=== PATIENT | female | born 1985 | race Caucasian/White ===

== ENCOUNTER 2024-01-24 18:51 | Emergency (ER) | payer MEDICAID, SELFPAY ==
[2024-01-24 18:51] VITALS: BP 150/106; PULSE 90; RESP 18; TEMP 36.7; O2SAT 96; BMI 36.0
[2024-01-24 18:54] VITALS: BP 130/76; PULSE 72; RESP 18; TEMP 36.6; O2SAT 97
--- NOTE | 2024-01-24 18:55 | PC.NURSE ---
Pt provided with TV remote
--- NOTE | 2024-01-24 19:17 | HMH.EDGENADL ---
Discharge Plan Disposition Patient Disposition: Home, Self-Care Condition: Good Referrals Follow up/Referrals: Lonnie Calzada APRN [Primary Care Provider] - See instructions Activity Restrictions/Add. Instructions Additional Instructions/Restrictions: Please follow-up with your primary care doctor. Please return with any new or worsening symptoms. Clinical Impressions Clinical Impression: Encounter for medical assessment Discharge ED Provider: Rúal Mccracken Adult HPI General Chief complaint: Recheck/Abnormal Lab/Rx Stated complaint: possible , leg pain Time Seen by Provider: 01/24/24 19:17 Mode of Arrival: EMS Source of Information: Patient Limitations: No Limitations Description of Symptoms (Recalled from ER Triage Doc. by RN): Patient reports that she thinks that she may be . States her last period was a couple of days ago. Reports that she is schizoprenic and needs her medication and something for the pain in her legs. Also complains of cough. Patient requesting medication refills, test, rehab and something for pain. History of Present Illness HPI narrative: Patient presents with concerns for . Her last menstrual period was 2 days ago however she reports she has had vaginal bleeding in the past in the setting of . She reports leg pain after remote injury and is requesting a Toradol shot. She does report a history of schizophrenia however denies any homicidal or suicidal ideations at this time. She denies any auditory or visual hallucinations at this time. She is requesting a medication refill of an unknown antipsychotic but upon further questioning states she has the capability to rapidly follow-up with primary care provider regarding this refill. Denies fevers or chills or vaginal bleeding or dysuria or frequency or recreational drug use. Denies any other medical conditions. Please note that above description of symptoms, in this electronic medical record under categorization of recalled from ER triage doctor by RN are reflective of an initial nursing assessment, however, is not reflective of my full history and physical exam that was personally taken and clarified. Consequentially, this preceding description of symptoms, which may include the patient's categorized chief complaint in the EMR, do not reflect my personal clinical impression, and the ultimate description of history of present illness and patient stated complaints should be deferred to this section of the note. Unless stated otherwise or congruent with this section of the note, additional signs, symptoms, or incongruence should be interpreted as inaccurate with my clinical impression. Related Data Allergies Allergy/AdvReac Type Severity Reaction Status Date / Time No Known Allergies Allergy Verified 01/24/24 18:55 [facility] Disclaimer: The information contained in this section may have been updated after the patient was seen, as this information can be updated by other users. Social History Smoking Status: Current every day smoker alcohol intake: never current occupational status: other Travel in the last 8 weeks: None ROS Obtained: Yes Systems reviewed as appropriate & no additional complaints except as documented As per HPI Physical Exam General General appearance: alert and in no apparent distress Head Head exam: atraumatic and normocephalic Eye Eye exam: Present normal appearance Neck Neck exam: Present normal inspection Chest Chest inspection: Present normal inspection and symmetric chest wall rise Respiratory Respiratory exam: Present normal lung sounds bilaterally; Absent respiratory distress Cardiovascular Cardiovascular exam: Present regular rate and normal rhythm Abdominal Exam Abdominal exam: Present soft Neurological Exam Neurological exam: Present alert and oriented X3 Psychiatric Psychiatric exam: Present normal affect and normal mood Skin Skin exam: Present warm and dry Medical Decision Making Medical Records Medical records reviewed: Yes I reviewed the patient's medical records. Karel Inquiry Pt receiving controlled substance: No Vital Signs: 01/24/24 18:51 01/24/24 18:54 01/24/24 21:58 Temperature 98.0 F 97.8 F 97.9 F Temperature Source Oral Oral Oral Pulse Rate 72 Pulse Rate [Radial] 90 70 Respiratory Rate 18 18 18 Blood Pressure 130/76 Blood Pressure [Right Arm] 150/106 H 126/70 Blood Pressure Mean [Right Arm] 120 88 Blood Pressure Source [Right Arm] Automatic Cuff Blood Pressure Position [Right Arm] Sitting 02 Sat by Pulse Oximetry 96 97 97 Oxygen Delivery Method Room Air Room Air Room Air 01/24/24 21:58 01/24/24 22:18 Temperature 97.9 F 97.9 F Temperature Source Oral Pulse Rate 70 64 Pulse Rate [Radial] Respiratory Rate 18 18 Blood Pressure 126/70 118/70 Blood Pressure [Right Arm] Blood Pressure Mean [Right Arm] Blood Pressure Source [Right Arm] Blood Pressure Position [Right Arm] 02 Sat by Pulse Oximetry 97 Oxygen Delivery Method Room Air Room Air Lab Data Lab Results 01/24/24 21:08: Urine HCG, Qual Negative Orders (Tests/Meds): ED MEDICATIONS Discontinued Medications Generic Name Dose Route Start Last Admin Trade Name Freq PRN Reason Stop Dose Admin Ketorolac Tromethamine 15 mg 01/24/24 21:35 01/24/24 22:05 Ketorolac 30mg/Ml Vial IM 01/24/24 21:36 15 mg ONCE ONE Administration ORDERS Category Date Time Status Urine , HCG Qual. Stat Lab 01/24/24 21:08 Completed Medical Decision Narrative: Patient with history and exam per above presenting for evaluation of concerns for Diagnoses considered include , no clinical evidence of psychosis tram or other acute psychogenic pathology that would warrant psychiatric hold or inpatient hospitalization. Unfortunately, upon reviewing patient's chart I have no access to any medical records, including no records of any prescription history. Patient does not have any access to these medications either and thus I am hesitant to place a refill for any prescription. Furthermore she is able to rapidly follow-up with psychiatry and/or primary care provider and is amenable to this plan ED workup and treatment included: Urine hCG Labs were independently interpreted by me, significant for negative My clinical impression at this time is most consistent with negative examination I discussed my clinical impression with patient and answered all questions. At this time, the evidence for any other entities in the differential is insufficient to warrant any further testing or ED observation. This was explained to the patient. The patient was advised that persistent or worsening symptoms require further evaluation. I confirmed the patient's understanding of this discussion. Critical Care Critical Care Time Critical Care Time: No
[2024-01-24 21:23] LABS: Urine Pregnancy, HCG Qual. Negative (Negative)
--- NOTE | 2024-01-24 21:56 | PC.NURSE ---
Called [facility] to let them know the pt is ready for discharge.
[2024-01-24 21:58] VITALS: BP 126/70; PULSE 70; RESP 18; TEMP 36.6; O2SAT 97
[2024-01-24] MEDS: KETOROLAC 30MG/ML VIAL 15 MG IM (22:05)
[2024-01-24 22:18] VITALS: BP 118/70; PULSE 64; RESP 18; TEMP 36.6; O2SAT 97
== END 2024-01-24 22:18 | disposition home or self-care (01) ==
PROVIDERS: Emergency Provider Emergency Medicine; PCP Nurse Practitioner Acute Care
DX: M79.606 Pain in leg, unspecified; F20.9 Schizophrenia, unspecified; Z32.02 Encounter for pregnancy test, result negative; F17.210 Nicotine dependence, cigarettes, uncomplicated
CPT/HCPCS: 81025; 96372; 99283

== ENCOUNTER 2024-02-11 18:44 | Emergency (ER) | payer MEDICAID, SELFPAY ==
[2024-02-11 18:42] VITALS: BP 141/93; PULSE 91; RESP 20; TEMP 36.6; O2SAT 95; BMI 34.9
--- NOTE | 2024-02-11 19:12 | ECG_ITS ---
APPROVED REPORT Exam: Resting ECG HR:82 bpm ECG Measurements Heart Rate 82 AXES MI 134 P 12 QRSd 84 QRS 85 QT 353 T 33 QTc 391 Conclusion SINUS RHYTHM NONSPECIFIC T-WAVE ABNORMALITY BORDERLINE ECG Electronically signed by : LA DOE, 02/12/2024 07:21:31
[2024-02-11 19:33] LABS: Microscopic, Urine URINE MICROSCOPIC (MICROSCOPIC)
[2024-02-11 19:36] LABS: Appearance,Urine CLEAR (Clear); Bilirubin,Urine Negative (Negative); Blood, Urine Negative (Negative); Color,Urine YELLOW (Yellow); Glucose,Urine (UA) Negative (Negative); Ketones,Urine Negative (Negative); Leukocyte Esterase,Urine TRACE (Negative); Nitrate,Urine Negative (Negative); Protein,Urine Negative (Negative); Specific Gravity, Urine >= 1.030 (1.005-1.030); Urine Pregnancy, HCG Qual. Negative (Negative); Urobilinogen,Urine 0.2 EU/dl (0.2)
[2024-02-11] MEDS: KETOROLAC 30MG/ML VIAL 15 MG IV (19:42)
--- NOTE | 2024-02-11 19:45 | ED_ITS ---
Discharge Plan Disposition Patient Disposition: Home, Self-Care Chief Complaint: Anxiety Referrals Follow up/Referrals: Provider,Referral, [Primary Care Provider] - See instructions Clinical Impressions Clinical Impression: Acute anxiety Discharge ED Provider: Frank Valentin General Adult HPI General Chief complaint: Anxiety Stated complaint: anxiety Time Seen by Provider: 02/11/24 18:56 Mode of Arrival: EMS Source of Information: Patient and EMS Limitations: No Limitations Description of Symptoms (Recalled from ER Triage Doc. by RN): pt is here today for anxiety attack and states she wants to be admitted for a mental health evaluation to have her schizophrenia meds regualted as she has been without them for 2 months. pt denies homicide and suicide thoughts upon triage History of Present Illness HPI narrative: Please note that above description of symptoms, in this electronic medical record under categorization of recalled from ER triage doctor by RN are reflective of an initial nursing assessment, however, is not reflective of my full history and physical exam that was personally taken and clarified. Consequentially, this preceding description of symptoms, which may include the patient's categorized chief complaint in the EMR, do not reflect my personal clinical impression, and the ultimate description of history of present illness and patient stated complaints should be deferred to this section of the note. Unless stated otherwise or congruent with this section of the note, additional signs, symptoms, or incongruence should be interpreted as inaccurate with my clinical impression. Related Data Allergies Allergy/AdvReac Type Severity Reaction Status Date / Time No Known Allergies Allergy Verified 01/24/24 18:55 [facility] Disclaimer: The information contained in this section may have been updated after the patient was seen, as this information can be updated by other users. Social History (Updated 01/25/24 @ 17:57 by Raúl Mccracken MD) Smoking Status: Current every day smoker alcohol intake: never current occupational status: other Travel in the last 8 weeks: None ROS Obtained: Yes All systems reviewed & no additional complaints except as documented Physical Exam General General appearance: alert and in no apparent distress Head Head exam: atraumatic and normocephalic Eye Eye exam: Present normal appearance, PERRL and EOMI ENT ENT exam: Present mucous membranes moist Neck Neck exam: Present normal inspection, full ROM and trachea midline Respiratory Respiratory exam: Absent respiratory distress, wheezes, stridor, accessory muscle use or prolonged expiratory phase Cardiovascular Cardiovascular exam: Present normal rhythm Abdominal Exam Abdominal exam: Present soft; Absent distention, tenderness, guarding, rebound or rigidity Extremities Exam Extremities exam: Absent edema Neurological Exam Neurological exam: Present alert, oriented X3, CN II-XII intact and normal gait; Absent motor sensory deficit Skin Skin exam: Present warm and dry; Absent diaphoresis or erythema Medical Decision Making Medical Records Medical records reviewed: Yes I reviewed the patient's medical records. Karel Inquiry Pt receiving controlled substance: No Karel was queried for this patient: No Vital Signs: 02/11/24 18:42 Temperature 97.8 F Temperature Source Oral Pulse Rate [Right Radial] 91 H Respiratory Rate 20 Blood Pressure [Right Arm] 141/93 H Blood Pressure Mean [Right Arm] 109 02 Sat by Pulse Oximetry 95 Oxygen Delivery Method Room Air Lab Data Lab Results 02/11/24 19:30: Urine Color Yellow, Urine Appearance Clear, Urine pH 6.0, Ur Specific [place] >= 1.030, Urine Protein Negative, Urine Glucose (UA) Negative, Urine Ketones Negative, Urine Blood Negative, Urine Nitrate Negative, Urine Bilirubin Negative, Urine Urobilinogen 0.2, Ur Leukocyte Esterase Trace, Urine RBC None, Urine WBC Occasional, Ur Squamous Epith Cells 3-5, Calcium Oxalate Crystal 2+, Urine Bacteria Trace, Urine HCG, Qual Negative, Urine Opiates Screen Negative, Urine Methadone Screen Negative, Ur Barbituates Screen Negative, Ur Phencyclidine Scrn Negative, Ur Amphetamines Screen Negative, U Benzodiazepines Scrn Negative, Urine Cocaine Screen Negative, U Marijuana (THC) Screen Positive H 02/11/24 19:35: WBC 9.5, RBC 5.12, Hgb 15.0, Hct 46.2, MCV 90.3, MCH 29.3, MCHC 32.4, RDW 13.8, Plt Count 293, MPV 7.4, Neut % (Auto) 59.6, Lymph % (Auto) 23.8, [place] % (Auto) 5.6, Eos % (Auto) 9.8, Baso % (Auto) 1.1, Neut # (Auto) 5.7, Lymph # (Auto) 2.3, [place] # (Auto) 0.5, Eos # (Auto) 0.9 H, Baso # (Auto) 0.1, Sodium 139, Potassium 3.8, Chloride 110 H, Carbon Dioxide 17 L, Anion Gap 15.8 H, BUN 15, Creatinine 0.80, Estimated Creat Clear 142, Estimated GFR 80, Est GFR ( Amer) 97, Glucose 107 H, Calcium 9.4, Total Bilirubin 0.4, AST 28, ALT 24, Alkaline Phosphatase 91, Total Protein 7.0, Albumin 4.1, Globulin 2.9, Albumin/Globulin Ratio 1.4, Salicylates < 1.0 L, Acetaminophen < 10 L, Plasma/Serum Alcohol < 10 02/11/24 19:35 02/11/24 19:35 Orders (Tests/Meds): ED MEDICATIONS Discontinued Medications Generic Name Dose Route Start Last Admin Trade Name Freq PRN Reason Stop Dose Admin Ketorolac Tromethamine 15 mg 02/11/24 19:10 02/11/24 19:42 Ketorolac 30mg/Ml Vial IV 02/11/24 19:11 15 mg ONCE ONE Administration ORDERS Category Date Time Status Acetaminophen Stat Lab 02/11/24 19:35 Completed CBC w/Auto Diff [Complete Blood Count Auto Diff] Stat Lab 02/11/24 19:35 Completed CMP [Comprehensive Metabolic Panel] Stat Lab 02/11/24 19:35 Completed Ethanol [Ethyl Alcohol] Stat Lab 02/11/24 19:35 Completed Salicylate Stat Lab 02/11/24 19:35 Completed UA [Urinalysis and Microscopic] Stat Lab 02/11/24 19:30 Completed UDS [Drug Screen,Urine] Stat Lab 02/11/24 19:30 Completed Urine , HCG Qual. Stat Lab 02/11/24 19:30 Completed Medical Decision Narrative: [id number] female history of paranoid schizophrenia presenting with multiple complaints. Patient states that she wants to be admitted. She has not taken her psychiatric medications in about 2 months and is hearing voices. Telling her to hurt anyone or hurt herself, but she is having panic attacks and feeling suicidal because of it. Does not have a plan. No active hallucinations. No homicidal ideation. History was obtained via conversation with patient. On arrival, patient hemodynamically stable, alert, oriented x4, appropriate, GCS 15, moving all extremities spontaneously, pupils equal and reactive to light. Full physical exam performed and significant for chronically ill-appearing woman in no acute distress. She is unkempt. Answering questions appropriately and interactive. Patient was given Toradol IM for symptomatic management and correction of underlying abnormalities. Workup independently interpreted and significant for nonactionable hematologic workup. Negative . THC positive urine. Urinalysis negative. Prior to evaluation by Nash Jolley, patient requesting to leave. States that she no longer feels suicidal and just wants to go home. I feel this is appropriate given patient has no plan, support system, and follow- up to help with medications. Because patient at baseline without signs or symptoms of clinical decompensation, deemed appropriate for discharge. Results were relayed to patient who voiced understanding and were agreeable to outpatient management and follow up. I discussed my clinical impression with patient and answered all questions. At this time, the evidence for any other entities in the differential is insufficient to warrant any further testing or ED observation. This was explained as well. Advisory was given that persistent or worsening symptoms require further evaluation. I confirmed the understanding of this discussion. Critical Care Critical Care Time Critical Care Time: No
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
[2024-02-11 19:48] LABS: Benzodiazepines Screen,Urine Negative ng/ml (<200)
[2024-02-11 19:49] LABS: Amphetamine/Metha Screen,Urine Negative ng/ml (<1000); Barbiturates Screen,Urine Negative ng/ml (<200)
[2024-02-11 19:50] LABS: Cannabinoid Screen,Urine Positive ng/ml (<50)
[2024-02-11 19:51] LABS: Bacteria,Urine Trace /lpf; Methadone Screen,Urine Negative ng/ml (<300); WBC,Urine Occasional #/hpf (0-3)
[2024-02-11 19:51] LABS: Basophils # 0.1 K/mm3 (0-0.2); Basophils % 1.1 % (0.1-2.0); Eosinophils # 0.9 K/mm3 (0.0-0.4); Eosinophils % 9.8 % (0.1-12.0); Hematocrit 46.2 % (37.0-47.0); Lymphocytes # 2.3 K/mm3 (0.7-4.5); Lymphocytes % 23.8 % (10-50); Mean Corpuscular HGB Conc 32.4 g/dL (31.8-35.4); Mean Corpuscular Hemoglobin 29.3 pg (27.0-31.2); Mean Corpuscular Volume 90.3 fl (81-99); Mean Platelet Volume 7.4 fl (7.4-10.4); Monocytes # 0.5 K/mm3 (0.1-1.0); Monocytes % 5.6 % (1.7-9.3); Neutrophils # 5.7 K/mm3 (1.8-7.8); Neutrophils % 59.6 % (37.0-80.0); Platelet Count 293 K/mm3 (142-424); Red Blood Count 5.12 M/mm3 (4.20-5.40); Red Cell Distribution Width 13.8 % (11.5-17.5); White Blood Count 9.5 K/mm3 (4.8-10.8)
[2024-02-11 19:52] LABS: Calcium Oxalate Crystals,Urine 2+ /lpf; Phencyclidine Screen,Urine Negative ng/ml (<25)
[2024-02-11 19:53] LABS: Opiate Screen,Urine Negative ng/ml (<300)
[2024-02-11 19:58] LABS: Cocaine Screen,Urine Negative ng/ml (<300)
[2024-02-11 20:02] LABS: Alanine Aminotransferase 24 U/L (12-78); Albumin Level 4.1 g/dl (3.5-5.0); Albumin/Globulin Ratio 1.4 (1.1-1.8); Alkaline Phosphatase 91 U/L (38-126); Anion Gap 15.8 mEq/L (5-15); Aspartate Amino Transferase 28 U/L (14-36); Bilirubin,Total 0.4 mg/dl (0.2-1.3); Blood Urea Nitrogen 15 mg/dl (7-17); Calcium 9.4 mg/dl (8.4-10.2); Carbon Dioxide 17 mmol/L (22.0-30.0); Chloride 110 mmol/L (98-107); Creatinine Clearance Estimated 142 mL/min (50-200); Estimated Glomerular Filt Rate 80 ml/min (>60); Ethyl Alcohol < 10 mg/dl (0-10); GFR (African American) 97 ML/MIN (>60); Globulin 2.9 g/dL (1.3-3.2); Glucose 107 mg/dl (74-100); Potassium 3.8 mmoL/L (3.5-5.1); Sodium 139 mmol/L (136-145)
--- NOTE | 2024-02-11 20:02 | PC.NURSE ---
Spoke with Sravani at [facility], will fax pt information to her for assessment at [phone]
[2024-02-11 20:05] LABS: Acetaminophen < 10 ug/ml (10-30); Salicylate < 1.0 mg/dL (2.0-20.0)
--- NOTE | 2024-02-11 21:44 | PC.NURSE ---
notified of patient request to go back 'home'. contacted [facility]cie without an answer, contacted nadia at [facility] who stated she could come and get here and would be up here in a minute
[2024-02-11 21:48] VITALS: BP 138/82; PULSE 89; RESP 18; TEMP 36.6; O2SAT 96
--- NOTE | 2024-02-11 21:55 | PC.NURSE ---
silvestre contacted at [facility] to discontinue assessment
--- NOTE | 2024-02-11 21:55 | PC.NURSE ---
Pt leaving with [facility] staff Shy Bella
== END 2024-02-11 21:53 | disposition home or self-care (01) ==
PROVIDERS: Emergency Provider Emergency Medicine
DX: F41.9 Anxiety disorder, unspecified (principal); F20.9 Schizophrenia, unspecified
CPT/HCPCS: 80053; 80307; 80329; 81001; 81025; 85025; 93005; 96374; 99284

== ENCOUNTER 2024-02-18 11:41 | Emergency (ER) | payer MEDICAID, SELFPAY ==
--- NOTE | 2024-02-18 11:40 | PC.NURSE ---
attempted to call [facility] العلي to gain better information about pt, no answer.
[2024-02-18 11:41] VITALS: BP 153/97; PULSE 87; RESP 18; TEMP 36.7; O2SAT 97; BMI 34.9
--- NOTE | 2024-02-18 11:46 | PC.NURSE ---
attempted to call [facility] العلي to gain better information about pt, no answer.
[2024-02-18] MEDS: NAPROXEN 500MG TABLET 500 MG PO (11:57)
[2024-02-18] MEDS: FLUCONAZOLE 100MG TABLET 200 MG PO (11:59)
--- NOTE | 2024-02-18 11:59 | PC.NURSE ---
pt reports having a history of schizophrenia. reports hallucinations but denies any si,hi.
--- NOTE | 2024-02-18 12:00 | PC.NURSE ---
Lunch tray obtained for pt.
--- NOTE | 2024-02-18 12:01 | HMH.EDGENADL ---
Discharge Plan Disposition Patient Disposition: Home, Self-Care Prescriptions Prescriptions: New Alevazol 1 % ointment 1 applic topical BID 28 Days Qty: 56.7 0RF Activity Restrictions/Add. Instructions Additional Instructions/Restrictions: There is a small area of excoriated skin on the right and left groin with superimposed candidal infection consistent with intertrigo. It is very important that you keep these areas clean and dry away from moisture. A barrier cream such as Desitin or A&E ointment would be helpful. Additionally I will give you topical antifungal treatment that will help as well. You were given a dose of fluconazole in the emergency department should help with the superimposed yeast infection. Regarding your schizophrenia with auditory hallucinations this appears to be a chronic condition and there is no immediate harm to yourself or others at the moment please continue to follow-up with your primary care doctor and psychiatrist as previously instructed. Clinical Impressions Clinical Impression: Candidal intertrigo, Schizophrenia, Auditory hallucination Instructions Patient Instructions: DI for Skin Abscess Discharge ED Provider: Radha Noyola General Adult HPI General Chief complaint: Skin/Abscess/Foreign Body Stated complaint: spot on leg Time Seen by Provider: 02/18/24 11:51 Mode of Arrival: EMS Source of Information: Patient and EMS Limitations: No Limitations Description of Symptoms (Recalled from ER Triage Doc. by RN): redness and moisture to ttaum area History of Present Illness HPI narrative: Patient is a 38-year-old female presents to the emergency room with multiple complaints by EMS. First she states she is having an area of bleeding and soreness in her bilateral groins. She was recently in the emergency department just a few days ago with a negative test. She was recently on her period as well. She also states that she has a history of schizophrenia she has auditory hallucinations which is chronic this is at its baseline. However she claims that she has not been able to take any of her psychiatric medications at [facility]. Efforts to call [facility] discussed this but been unsuccessful. Patient also claims she has chronic bilateral lower extremity pain and asked for pain medicine regarding this. Related Data Previous Rx's Medication Instructions Recorded clotrimazole 1 % topical ointment 1 applic topical BID 4 weeks #56.7 02/18/24 (Alevazol) grams Allergies Allergy/AdvReac Type Severity Reaction Status Date / Time No Known Allergies Allergy Verified 01/24/24 18:55 [facility] Disclaimer: The information contained in this section may have been updated after the patient was seen, as this information can be updated by other users. Social History (Updated 01/25/24 @ 17:57 by Raúl Mccracken MD) Smoking Status: Current every day smoker alcohol intake: never current occupational status: other Travel in the last 8 weeks: None ROS Obtained: Yes All systems reviewed & no additional complaints except as documented Physical Exam General General appearance: alert Respiratory Respiratory exam: Present normal lung sounds bilaterally Cardiovascular Cardiovascular exam: Present regular rate and normal rhythm Neurological Exam Neurological exam: Present alert and oriented X3 Skin Skin exam: Present other (Excoriated skin bilateral groins worse on the right with superimposed candidal erythema) Medical Decision Making Karel Inquiry Pt receiving controlled substance: No Vital Signs: 02/18/24 11:41 Temperature 98.1 F Temperature Source Oral Pulse Rate [Right] 87 Respiratory Rate 18 Blood Pressure [Right Arm] 153/97 H Blood Pressure Mean [Right Arm] 115 02 Sat by Pulse Oximetry 97 Oxygen Delivery Method Room Air Orders (Tests/Meds): ED MEDICATIONS Generic Name Dose Route Start Last Admin Trade Name Freq PRN Reason Stop Dose Admin Fluconazole 200 mg 02/18/24 11:58 02/18/24 11:59 Fluconazole 100mg Tablet PO 02/18/24 11:59 200 mg ONCE ONE Administration Naproxen 500 mg 02/18/24 11:53 02/18/24 11:57 Naproxen 500mg Tablet PO 02/18/24 11:54 500 mg ONCE ONE Administration Discontinued Medications Generic Name Dose Route Start Last Admin Trade Name Freq PRN Reason Stop Dose Admin Fluconazole 200 mg 02/18/24 11:51 02/18/24 11:59 Fluconazole 200mg Tablet PO 02/18/24 11:52 Not Given ONCE ONE Medical Decision Narrative: Patient is a chronically ill schizophrenic who has auditory hallucinations and is at her baseline she does not appear to be in acute harm to herself or others right now. No emergent aspect of this is ongoing. We were unable to confirm whether or not she is or is not getting her medications at [facility]. She is very stable in appearance. She was given a dose of oral fluconazole as well as a prescription of topical clotrimazole. She is also been advised to keep the area clean and dry with a barrier cream as well. She also requested a flu vaccine but we were unable to administer this in the emergency department as we do not have access to this. Regarding her chronic lower extremity pain she got very upset with me requesting gabapentin and tramadol I told her that I would give her Tylenol she told me that she would rebeca me. She was happy with the dose of naproxen however. Patient was discharged in stable condition Critical Care Critical Care Time Critical Care Time: No
[2024-02-18 12:03] VITALS: BP 136/94; PULSE 80; RESP 17; TEMP 36.7; O2SAT 98
--- NOTE | 2024-02-18 12:21 | PC.NURSE ---
Have attempted to reach [facility] several times however they will not answer the phone and unable to leave a voicemail. I attempted to call [facility] as they share a vehicle, no answer as well but I was able to leave a voicemail.
--- NOTE | 2024-02-18 12:50 | PC.NURSE ---
Pt asking for another snack ; gave pt a sandwich, pop-tarts, chips, and more drink.
--- NOTE | 2024-02-18 13:10 | PC.NURSE ---
Called dispatch as [facility] is still not answering their phones. Dispatch states we have the same number as everyone else . Dispatch attempted to call EMS for pt transport. I notified EMS they were not needed at this time.
--- NOTE | 2024-02-18 13:16 | PC.NURSE ---
I called [facility] again, Sapna did answer the phone, and we let her know that pt is ready for d/c. I let her know pt will have 1 medicine that was sent to their phone as requested.
--- NOTE | 2024-02-18 13:29 | PC.NURSE ---
[facility] that [facility] staff will be picking pt up shortly.
== END 2024-02-18 14:05 | disposition home or self-care (01) ==
PROVIDERS: Emergency Provider Student in an Organized Health Care Education/Training Program
DX: B37.2 Candidiasis of skin and nail (principal); F20.9 Schizophrenia, unspecified; F17.210 Nicotine dependence, cigarettes, uncomplicated
CPT/HCPCS: 99283

== ENCOUNTER 2024-02-25 16:51 | Observation (INO) | payer MEDICAID, SELFPAY ==
[2024-02-25] VITALS (7 sets, daily range): BP systolic 94–127; BP diastolic 62–87; PULSE 80–98; RESP 16; TEMP 36.7; O2SAT 91–96; BMI 33.3
--- NOTE | 2024-02-25 17:00 | XR_ITS ---
PROCEDURE INFORMATION: Exam: XR Chest Exam date and time: 02/25/2024 6:06 PM Age: 38 years old Clinical indication: Other: Syncope TECHNIQUE: Imaging protocol: Radiologic exam of the chest. Views: 1 view. Total images: 1 COMPARISON: No relevant prior studies available. FINDINGS: Tubes, catheters and devices: Extrinsic artifact referral to clothing or jewelry. Lungs: Mild bibasilar atelectasis. No concerning infiltrate, airspace consolidation or vascular congestion. No pulmonary edema. Pleural spaces: Unremarkable. No pleural effusion. No pneumothorax. Heart/Mediastinum: Unremarkable. No cardiomegaly. No mediastinal widening or hilar enlargement. Bones/joints: Unremarkable. Soft tissues: Breast attenuation artifact. IMPRESSION: 1. No radiographically acute cardiopulmonary process. 2. Mild bibasilar atelectasis.
--- NOTE | 2024-02-25 17:00 | CT_ITS ---
PROCEDURE INFORMATION: Exam: CT Head Without Contrast Exam date and time: 02/25/2024 6:09 PM Age: 38 years old Clinical indication: Syncope and collapse; Additional info: Recurrent syncope TECHNIQUE: Imaging protocol: Computed tomography of the head without contrast. Total images: 281 Radiation optimization: All CT scans at this facility use at least one of these dose optimization techniques: automated exposure control; mA and/or kV adjustment per patient size (includes targeted exams where dose is matched to clinical indication); or iterative reconstruction. COMPARISON: No relevant prior studies available. FINDINGS: Brain: Normal. No hemorrhage. Unremarkable white matter. No mass effect. The gabriel-white interface is maintained. Cerebral ventricles: No ventriculomegaly. Paranasal sinuses: Mild mucosal thickening base of the left maxillary sinus. Minimal mucosal thickening left sphenoid sinus. Mastoid air cells: Visualized mastoid air cells are well aerated. Bones: Unremarkable. No acute fracture. Soft tissues: Unremarkable. IMPRESSION: No acute intracranial process.
--- NOTE | 2024-02-25 17:06 | ED_ITS ---
Discharge Plan Disposition Patient Disposition: Home, Self-Care Chief Complaint: Syncope Prescriptions Prescriptions: No Action Alevazol 1 % ointment 1 applic topical BID 28 Days Qty: 56.7 0RF Referrals Follow up/Referrals: Provider,Referral, MD [Primary Care Provider] - See instructions Clinical Impressions Clinical Impression: Syncope Instructions Patient Instructions: DI for Syncope in Adults (Fainting), DI for Syncope in Children (Fainting) Discharge ED Provider: Elmo Lauren General Adult HPI General Chief complaint: Syncope Stated complaint: Passed Out Time Seen by Provider: 02/25/24 16:55 Mode of Arrival: EMS Source of Information: Patient Limitations: No Limitations Description of Symptoms (Recalled from ER Triage Doc. by RN): Patient stating that she has a condition that causes her to pass out and she has passed out 3 times today. Denies any pain or discomfort at this time. History of Present Illness HPI narrative: Patient is a 38-year-old female with past medical history of schizophrenia, reported multiple episodes of syncope in the last 6 months who presents emergency department for evaluation of passing out. Patient states she was sitting on a bench prior to dinner when she had a episode of passing out, she does not remember and woke up on the ground. She states that she has had some episodes of passing out while walking, some while sitting over the last 6 months. She had 3 episodes today all while sitting. Due to persistent symptoms she presents here for continued evaluation. Related Data Previous Rx's Medication Instructions Recorded clotrimazole 1 % topical ointment 1 applic topical BID 4 weeks #56.7 02/18/24 (Alevazol) grams Allergies Allergy/AdvReac Type Severity Reaction Status Date / Time No Known Allergies Allergy Verified 01/24/24 18:55 [facility] Disclaimer: The information contained in this section may have been updated after the patient was seen, as this information can be updated by other users. Social History (Updated 01/25/24 @ 17:57 by Raúl Mccracken MD) Smoking Status: Current every day smoker alcohol intake: never current occupational status: other Travel in the last 8 weeks: None ROS Obtained: Yes Systems reviewed as appropriate & no additional complaints except as documented Physical Exam General General appearance: alert and in no apparent distress Head Head exam: atraumatic and normocephalic Eye Eye exam: Present PERRL and EOMI ENT ENT exam: Present mucous membranes moist Neck Neck exam: Present normal inspection Chest Chest inspection: Present normal inspection and symmetric chest wall rise Respiratory Respiratory exam: Present normal lung sounds bilaterally; Absent respiratory distress Cardiovascular Cardiovascular exam: Present regular rate and normal rhythm Abdominal Exam Abdominal exam: Present soft; Absent tenderness Extremities Exam Extremities exam: Present normal inspection Neurological Exam Neurological exam: Present alert; Absent motor sensory deficit Psychiatric Psychiatric exam: Present normal affect Skin Skin exam: Present warm and dry Medical Decision Making Karel Inquiry Pt receiving controlled substance: No Vital Signs: 02/25/24 16:51 02/25/24 17:00 02/25/24 17:30 Temperature 98.0 F Temperature Source Oral Pulse Rate Pulse Rate [Radial] 80 Respiratory Rate 16 Blood Pressure 119/87 94/62 L Blood Pressure [Right Arm] 110/78 Blood Pressure Mean 94 73 Blood Pressure Mean [Right Arm] 88 Blood Pressure Source [Right Arm] Automatic Cuff Blood Pressure Position [Right Arm] Sitting 02 Sat by Pulse Oximetry 91 L Oxygen Delivery Method Room Air 02/25/24 18:00 02/25/24 18:30 Temperature Temperature Source Pulse Rate 95 H 98 H Pulse Rate [Radial] Respiratory Rate Blood Pressure 105/66 L 116/69 Blood Pressure [Right Arm] Blood Pressure Mean Blood Pressure Mean [Right Arm] Blood Pressure Source [Right Arm] Blood Pressure Position [Right Arm] 02 Sat by Pulse Oximetry 94 L 96 Oxygen Delivery Method Room Air Room Air Lab Data Lab Results 02/25/24 17:10: WBC 10.0, RBC 5.12, Hgb 15.0, Hct 44.9, MCV 87.6, MCH 29.2, MCHC 33.3, RDW 13.9, Plt Count 245, MPV 8.1, Neut % (Auto) 69.0, Lymph % (Auto) 20.0, [place] % (Auto) 4.6, Eos % (Auto) 5.7, Baso % (Auto) 0.8, Neut # (Auto) 6.9, Lymph # (Auto) 2.0, [place] # (Auto) 0.5, Eos # (Auto) 0.6 H, Baso # (Auto) 0.1, Sodium 136, Potassium 5.6 H, Chloride 112 H, Carbon Dioxide 20 L, Anion Gap 9.6, BUN 9, Creatinine 0.80, Estimated Creat Clear 135, Estimated GFR 80, Est GFR ( Amer) 97, Glucose 98, Calcium 9.1, Magnesium 1.8, Total Bilirubin 1.0, AST 59 H, ALT 29, Alkaline Phosphatase 99, Total Protein 7.2, Albumin 4.0, Globulin 3.2, Albumin/Globulin Ratio 1.3, Serum HCG, Qual Negative 02/25/24 17:10 02/25/24 17:10 Orders (Tests/Meds): ED MEDICATIONS Discontinued Medications Generic Name Dose Route Start Last Admin Trade Name Freq PRN Reason Stop Dose Admin Lactated Ringer's 1,000 mls @ 999 mls/hr 02/25/24 17:00 02/25/24 17:12 Lactated Ringer's 1000 Ml Bag IV 02/25/24 18:00 999 mls/hr .Q1H1M ONE Administration ORDERS Category Date Time Status CT head/brain wo con Stat Cat Scan 02/25/24 17:00 Completed XR chest portable Stat Exams 02/25/24 17:00 Completed CBC w/Auto Diff [Complete Blood Count Auto Diff] Stat Lab 02/25/24 17:10 Completed CMP [Comprehensive Metabolic Panel] Stat Lab 02/25/24 17:10 Completed HCG Qualitative, Serum Stat Lab 02/25/24 17:10 Completed MG [Magnesium] Stat Lab 02/25/24 17:10 Completed Medical Decision Narrative: In summary patient is a 38-year-old female past medical history described above who presents emergency department for evaluation of syncope. Patient is hemodynamically stable nontoxic-appearing upon arrival, afebrile. Differential diagnosis includes cardiac arrhythmia, electrolyte abnormality, vasovagal episode, among others. Workup was conducted with hematologic labs, chest x-ray, EKG, hCG. Initial inventions include crystalloid bolus. Initial workup reviewed by me, hematologic labs are nonactionable, mild hyperkalemia which does not require any intervention at this time, no LEONARDA, hCG negative. CT imaging shows no acute process. Given no explanation for syncope that occurred at rest patient will benefit from cardiac monitoring over the next 24 hours therefore the case was discussed with hospital medicine who will admit the patient their service for continued evaluation at this time. Critical Care Critical Care Time Critical Care Time: No
[2024-02-25] MEDS: LACTATED RINGERS 1000ML 1,000 ML 999 ML IV (17:12)
--- NOTE | 2024-02-25 17:21 | PC.NURSE ---
SUPPER TRAY ORDERED
[2024-02-25 17:23] LABS: Basophils # 0.1 K/mm3 (0-0.2); Basophils % 0.8 % (0.1-2.0); Eosinophils # 0.6 K/mm3 (0.0-0.4); Eosinophils % 5.7 % (0.1-12.0); Hematocrit 44.9 % (37.0-47.0); Mean Corpuscular HGB Conc 33.3 g/dL (31.8-35.4); Mean Corpuscular Hemoglobin 29.2 pg (27.0-31.2); Mean Corpuscular Volume 87.6 fl (81-99); Mean Platelet Volume 8.1 fl (7.4-10.4); Monocytes # 0.5 K/mm3 (0.1-1.0); Monocytes % 4.6 % (1.7-9.3); Neutrophils # 6.9 K/mm3 (1.8-7.8); Platelet Count 245 K/mm3 (142-424); Red Blood Count 5.12 M/mm3 (4.20-5.40); Red Cell Distribution Width 13.9 % (11.5-17.5)
[2024-02-25 17:29] LABS: Chloride 112 mmol/L (98-107); Potassium 5.6 mmoL/L (3.5-5.1); Sodium 136 mmol/L (136-145)
[2024-02-25 17:31] LABS: Alanine Aminotransferase 29 U/L (12-78); Aspartate Amino Transferase 59 U/L (14-36); Blood Urea Nitrogen 9 mg/dl (7-17); Creatinine Clearance Estimated 135 mL/min (50-200); Estimated Glomerular Filt Rate 80 ml/min (>60); GFR (African American) 97 ML/MIN (>60)
[2024-02-25 17:32] LABS: Albumin/Globulin Ratio 1.3 (1.1-1.8); Alkaline Phosphatase 99 U/L (38-126); Anion Gap 9.6 mEq/L (5-15); Calcium 9.1 mg/dl (8.4-10.2); Carbon Dioxide 20 mmol/L (22.0-30.0); Globulin 3.2 g/dL (1.3-3.2); Glucose 98 mg/dl (74-100); Total Protein,Serum 7.2 g/dl (6.3-8.2)
[2024-02-25 17:33] LABS: Magnesium 1.8 mg/dl (1.6-2.3)
[2024-02-25 17:35] LABS: HCG Qualitative, Serum Negative (Negative)
--- NOTE | 2024-02-25 19:44 | PC.NURSE ---
call placed for bed assignment. dx: syncope, hospitalist admit.
--- NOTE | 2024-02-25 20:01 | PC.NURSE ---
Nurse to nurse report given to Freya CHOPRA
--- NOTE | 2024-02-25 20:03 | P.HP_ITS ---
History of Present Illness *Admission Date: 02/25/24 *Reason for visit:: syncope *History of present illness: This is a 38-year-old obese female, resident of [facility] with PMHxof schizophrenia, polysubstance abuse, reported multiple episodes of syncope in the last 6 months who presents emergency department for evaluation. Patient stated she was sitting on a bench prior to dinner when she had a episode of passing out, she does not remember and woke up on the ground. She states that she has had some episodes of passing out while walking, some while sitting over the last 6 months. She had 3 episodes today all while sitting. family had no visualized any of this episode, however today patient has been found in the ground unresponsive. Due to persistent symptoms she presents here for continued evaluation. Admitted for further monitoring [facility] Disclaimer: The information contained in this section may have been updated after the patient was seen, as this information can be updated by other users. Medical History (Updated 02/26/24 @ 06:32 by Satish De Jesus APRN) Hx of drug overdose Anxiety Hypertension Surgical History (Updated 02/25/24 @ 20:30 by Freya Aldrich RN) H/O LEEP Social History (Updated 02/25/24 @ 20:28 by Freya Aldrich RN) Smoking Status: Current every day smoker alcohol intake: never current occupational status: other Travel in the last 8 weeks: None Review of Systems Review of Systems Review of systems:: pertinent systems reviewed and negative unless documented below Meds Home Medications and Allergies Home Medications Medication Instructions Recorded Confirmed Type clotrimazole 1 % topical ointment 1 applic topical BID 4 weeks #56.7 02/18/24 02/25/24 Rx (Alevazol) grams aripiprazole 10 mg tablet (Abilify) 10 mg PO DAILY 02/25/24 02/25/24 History lisinopril 10 mg tablet 10 mg PO DAILY 02/25/24 02/25/24 History melatonin 10 mg tablet 10 mg PO DAILY 02/25/24 02/25/24 History New Prescriptions to Start Prescriptions: Allergies Allergy/AdvReac Type Severity Reaction Status Date / Time No Known Allergies Allergy Verified 01/24/24 18:55 Exam Data for Last 24 hours Vital signs and Labs for Last 24 Hours: Temp Pulse Resp BP Pulse Ox O2 Del Method 98.0 F 98 H 16 116/69 96 Room Air 02/25/24 16:51 02/25/24 18:30 02/25/24 16:51 02/25/24 18:30 02/25/24 18:30 02/25/24 18:30 Laboratory Results - last 24 hr 02/25/24 17:10: WBC 10.0, RBC 5.12, Hgb 15.0, Hct 44.9, MCV 87.6, MCH 29.2, MCHC 33.3, RDW 13.9, Plt Count 245, MPV 8.1, Neut % (Auto) 69.0, Lymph % (Auto) 20.0, [place] % (Auto) 4.6, Eos % (Auto) 5.7, Baso % (Auto) 0.8, Neut # (Auto) 6.9, Lymph # (Auto) 2.0, [place] # (Auto) 0.5, Eos # (Auto) 0.6 H, Baso # (Auto) 0.1, Sodium 136, Potassium 5.6 H, Chloride 112 H, Carbon Dioxide 20 L, Anion Gap 9.6, BUN 9, Creatinine 0.80, Estimated Creat Clear 135, Estimated GFR 80, Est GFR ( Amer) 97, Glucose 98, Calcium 9.1, Magnesium 1.8, Total Bilirubin 1.0, AST 59 H, ALT 29, Alkaline Phosphatase 99, Total Protein 7.2, Albumin 4.0, Globulin 3.2, Albumin/Globulin Ratio 1.3, Serum HCG, Qual Negative I & O for Last 24 hours: Intake & Output 02/22/24 02/23/24 02/24/24 02/25/24 23:59 23:59 23:59 23:59 Weight 90.718 kg Constitutional Constitutional: no acute distress, obese and cooperative *Routine HEENT Exam Head: Present normocephalic Eye: Present EOMI and PERRL ENT: Present mucous membranes moist *Routine Neck Exam Neck: Present supple; Absent lymphadenopathy *Routine Respiratory Exam Respiratory: Present CTA bilaterally *Routine Cardiovascular Exam Cardiovascular: Present RRR *Routine Abdominal Exam Abdominal: Present soft and normoactive bowel sounds; Absent tenderness *Routine Rectal Exam Rectal:: deferred *Routine Genitalia Exam Genitalia:: deferred *Routine Extremities Exam Extremities: Absent cyanosis, clubbing or edema *Routine Skin Exam Skin: Present warm; Absent rash *Routine Neurological Exam Neurological: Present alert, oriented X3, normal reflexes and moving all extremities Routine Psychiatric Exam Psychiatric: Present cooperative and anxious H&P: Result Imaging and Cardiology EKG: Status: image reviewed by me, Preliminary report and final report CT scan - head: Status: image reviewed by me, Preliminary report and final report Assessment and Plan *Assessment and plan (1) Syncope: Status: Acute Qualifiers: Syncope type: unspecified Qualified Code(s): R55 - Syncope and collapse Category: Medical Code(s): R55 - Syncope and collapse (2) Schizophrenia: Status: Acute Qualifiers: Schizophrenia type: unspecified Qualified Code(s): F20.9 - Schizophrenia, unspecified Category: Medical Code(s): F20.9 - Schizophrenia, unspecified (3) Hx of drug overdose: Status: Acute Category: Medical Code(s): Z91.89 - Other specified personal risk factors, not elsewhere classified (4) Hypertension: Status: Acute Qualifiers: Hypertension type: unspecified Qualified Code(s): I10 - Essential (primary) hypertension Category: Medical Code(s): I10 - Essential (primary) hypertension (5) Anxiety: Status: Acute Category: Medical Code(s): F41.9 - Anxiety disorder, unspecified Plan 38-year-old obese female, resident of [facility] with PMHxof schizophrenia, polysubstance abuse, reported multiple episodes of syncope in the last 6 months who presents emergency department for evaluation. initial work up hematologic labs are nonactionable, mild hyperkalemia which does not require any intervention at this time, no LEONARDA, hCG negative. CT imaging shows no acute process. ED requested admission. discussion made about medical history and risk factors. Agreed for admission. Plan as follow: -Syncope: patient was found down unresponsive by family. To rule out syncope, drug overdose, hypoglycemia; History of schizophrenia and drug abuse: Admit patient for continuous cardiac monitoring. Vital signs per unit protocol Obtain UA and drug screen. Positive for marijuana Ordered CBC CMP lipid panel, thyroid function and A1c Patient has not been taking her medications recently. Unclear why Resume aripiprazole 10 mg Monitor for withdrawal symptoms -Hypertension: On lisinopril. Resumed Lovenox for DVT prophylaxis. On Protonix Regular diet Full code
[2024-02-25] MEDS: PANTOPRAZOLE 40MG TABLET 40 MG PO (21:23)
[2024-02-25] MEDS: 0.9 % SODIUM CHLORIDE 1000ML 1,000 ML 75 ML IV (21:23)
[2024-02-25] MEDS: HEPARIN SODIUM 5,000 UNIT/ML VIAL 5000 UNIT SQ (21:23)
[2024-02-25 22:10] LABS: Microscopic, Urine URINE MICROSCOPIC (MICROSCOPIC)
[2024-02-25 22:13] LABS: Appearance,Urine CLEAR (Clear); Bilirubin,Urine Negative (Negative); Blood, Urine Negative (Negative); Color,Urine YELLOW (Yellow); Glucose,Urine (UA) Negative (Negative); Ketones,Urine Negative (Negative); Leukocyte Esterase,Urine 1+ (Negative); Nitrate,Urine POSITIVE (Negative); PH,Urine 6.5 (5.0-8.5); Protein,Urine Negative (Negative); Urobilinogen,Urine 0.2 EU/dl (0.2)
[2024-02-25 22:24] LABS: Benzodiazepines Screen,Urine Negative ng/ml (<200)
[2024-02-25 22:25] LABS: Amphetamine/Metha Screen,Urine Negative ng/ml (<1000); Barbiturates Screen,Urine Negative ng/ml (<200)
[2024-02-25 22:26] LABS: Cannabinoid Screen,Urine Positive ng/ml (<50); Cocaine Screen,Urine Negative ng/ml (<300)
[2024-02-25 22:27] LABS: Methadone Screen,Urine Negative ng/ml (<300)
[2024-02-25 22:28] LABS: Opiate Screen,Urine Negative ng/ml (<300); Phencyclidine Screen,Urine Negative ng/ml (<25)
[2024-02-25 22:34] LABS: Squamous Epithelial Cell,Urine 20-50 #/hpf (0-5); WBC,Urine 20-50 #/hpf (0-3)
[2024-02-25 22:35] LABS: Bacteria,Urine 2+ /lpf
[2024-02-26] VITALS (9 sets, daily range): BP systolic 130–160; BP diastolic 70–97; PULSE 78–120; RESP 16–20; TEMP 36.1–36.7; O2SAT 95–99; BMI 36.9
[2024-02-26] MEDS: HEPARIN SODIUM 5,000 UNIT/ML VIAL 5000 UNIT SQ ×2 (04:29→21:08)
--- NOTE | 2024-02-26 04:54 | PC.NURSE ---
Since arriving to the floor the patient has been able to rest. Patient has eaten well and tolerated that food well. Has not had any complaints. Has been up to the bathroom to void and done well. Has not had any syncopal episode. Tele has remained Normal sinus through the night.
[2024-02-26 08:12] LABS: Basophils # 0.1 K/mm3 (0-0.2); Basophils % 0.6 % (0.1-2.0); Eosinophils # 0.6 K/mm3 (0.0-0.4); Eosinophils % 6.2 % (0.1-12.0); Hemoglobin 14.2 g/dL (12.2-16.2); Lymphocytes # 1.6 K/mm3 (0.7-4.5); Mean Corpuscular HGB Conc 32.2 g/dL (31.8-35.4); Mean Corpuscular Hemoglobin 28.7 pg (27.0-31.2); Mean Platelet Volume 7.7 fl (7.4-10.4); Monocytes # 0.4 K/mm3 (0.1-1.0); Monocytes % 4.8 % (1.7-9.3); Neutrophils # 6.6 K/mm3 (1.8-7.8); Neutrophils % 71.4 % (37.0-80.0); Platelet Count 258 K/mm3 (142-424); Red Blood Count 4.94 M/mm3 (4.20-5.40); White Blood Count 9.3 K/mm3 (4.8-10.8)
[2024-02-26 08:17] LABS: Chloride 112 mmol/L (98-107); Sodium 139 mmol/L (136-145)
[2024-02-26 08:20] LABS: Alanine Aminotransferase 34 U/L (12-78); Albumin Level 3.5 g/dl (3.5-5.0); Albumin/Globulin Ratio 1.3 (1.1-1.8); Alkaline Phosphatase 86 U/L (38-126); Aspartate Amino Transferase 28 U/L (14-36); Bilirubin,Total 0.4 mg/dl (0.2-1.3); Blood Urea Nitrogen 11 mg/dl (7-17); Carbon Dioxide 18 mmol/L (22.0-30.0); Cholesterol 169 mg/dl (140-200); Creatinine Clearance Estimated 120 mL/min (50-200); Estimated Glomerular Filt Rate 62 ml/min (>60); GFR (African American) 75 ML/MIN (>60); Globulin 2.8 g/dL (1.3-3.2); Phosphorous 3.1 mg/dl (2.5-4.5); Total Protein,Serum 6.3 g/dl (6.3-8.2); Triglycerides 186 mg/dl (30-150); VLDL Cholesterol 37 mg/dL (0-40)
[2024-02-26 08:21] LABS: Chol/HDL Ratio 3.6 (1-3.5); Glucose 126 mg/dl (74-100); HDL Cholesterol 47 mg/dl (40-60); Magnesium 1.8 mg/dl (1.6-2.3)
[2024-02-26 08:32] LABS: Direct LDL Cholesterol 89.85 mg/dL (100-129)
[2024-02-26] MEDS: ARIPiprazole 10MG TABLET 10 MG PO (08:42)
[2024-02-26] MEDS: PANTOPRAZOLE 40MG TABLET 40 MG PO (08:42)
[2024-02-26] MEDS: LISINOPRIL 10MG TABLET 10 MG PO (08:42)
[2024-02-26 08:51] LABS: Thyroid Stimulating Hormone 0.47 uIU/mL (0.465-4.68)
[2024-02-26 09:42] LABS: 25-OH Vitamin D, Total 37.1 ng/mL (30-100); Free T4 (Free Thyroxine) 0.79 ng/dl (0.78-2.19)
[2024-02-26] MEDS: KETOROLAC 30MG/ML VIAL 15 MG IV (10:06)
[2024-02-26] MEDS: CLOTRIMAZOLE 1% TP ×2 (10:06→21:08)
[2024-02-26] MEDS: NICOTINE 21MG/24HR PATCH 21 MG TD (12:38)
--- NOTE | 2024-02-26 16:03 | PC.NURSE ---
Patient tried to leave floor and RN explained to patient she could not leave the floor and that this is a non-smoking facility. Patient currently laying in bed resting. State guardianship office called for clarification that patient can leave AMA if she so decides. Deborah Carbone was the aeronautical engineer state guardian RN spoke to and Deborah Carbone also spoke with Manny Cervantes RN and stated that the patient can sign herself out AMA should she decide.
--- NOTE | 2024-02-26 16:19 | EXP.PN ---
Subjective *Date: 02/26/24 *Time: 16:19 Interval history: seen at bedside, mentions she feels heavinvess in her breathing, otherwise denied N/V, Chest pain Exam Data for Last 24 hours Vital signs and Labs for Last 24 Hours: Temp Pulse Resp BP Pulse Ox O2 Del Method 98 F 89 17 138/70 96 Room Air 02/26/24 16:00 02/26/24 16:00 02/26/24 16:00 02/26/24 16:00 02/26/24 16:00 02/26/24 11:53 Laboratory Results - last 24 hr 02/25/24 17:10: WBC 10.0, RBC 5.12, Hgb 15.0, Hct 44.9, MCV 87.6, MCH 29.2, MCHC 33.3, RDW 13.9, Plt Count 245, MPV 8.1, Neut % (Auto) 69.0, Lymph % (Auto) 20.0, [place] % (Auto) 4.6, Eos % (Auto) 5.7, Baso % (Auto) 0.8, Neut # (Auto) 6.9, Lymph # (Auto) 2.0, [place] # (Auto) 0.5, Eos # (Auto) 0.6 H, Baso # (Auto) 0.1, Sodium 136, Potassium 5.6 H, Chloride 112 H, Carbon Dioxide 20 L, Anion Gap 9.6, BUN 9, Creatinine 0.80, Estimated Creat Clear 135, Estimated GFR 80, Est GFR ( Amer) 97, Glucose 98, Calcium 9.1, Magnesium 1.8, Total Bilirubin 1.0, AST 59 H, ALT 29, Alkaline Phosphatase 99, Total Protein 7.2, Albumin 4.0, Globulin 3.2, Albumin/Globulin Ratio 1.3, Serum HCG, Qual Negative 02/25/24 22:05: Urine Color Yellow, Urine Appearance Clear, Urine pH 6.5, Ur Specific [place] 1.010, Urine Protein Negative, Urine Glucose (UA) Negative, Urine Ketones Negative, Urine Blood Negative, Urine Nitrate Positive, Urine Bilirubin Negative, Urine Urobilinogen 0.2, Ur Leukocyte Esterase 1+ A, Urine RBC 3-5, Urine WBC 20-50, Ur Squamous Epith Cells 20-50, Urine Bacteria 2+, Urine Opiates Screen Negative, Urine Methadone Screen Negative, Ur Barbituates Screen Negative, Ur Phencyclidine Scrn Negative, Ur Amphetamines Screen Negative, U Benzodiazepines Scrn Negative, Urine Cocaine Screen Negative, U Marijuana (THC) Screen Positive H 02/26/24 08:00: WBC 9.3, RBC 4.94, Hgb 14.2, Hct 44.0, MCV 89.0, MCH 28.7, MCHC 32.2, RDW 14.0, Plt Count 258, MPV 7.7, Neut % (Auto) 71.4, Lymph % (Auto) 17.0, [place] % (Auto) 4.8, Eos % (Auto) 6.2, Baso % (Auto) 0.6, Neut # (Auto) 6.6, Lymph # (Auto) 1.6, [place] # (Auto) 0.4, Eos # (Auto) 0.6 H, Baso # (Auto) 0.1, Sodium 139, Potassium 4.0 D, Chloride 112 H, Carbon Dioxide 18 L, Anion Gap 13.0, BUN 11, Creatinine 1.00 D, Estimated Creat Clear 120, Estimated GFR 62, Est GFR ( Amer) 75 D, Glucose 126 H D, Hemoglobin A1c 5.0, Calcium 9.0, Phosphorus 3.1, Magnesium 1.8, Total Bilirubin 0.4, AST 28 D, ALT 34, Alkaline Phosphatase 86, Total Protein 6.3, Albumin 3.5 D, Globulin 2.8, Albumin/Globulin Ratio 1.3, Triglycerides 186 H, Cholesterol 169, LDL Cholesterol Direct 89.85 L, VLDL Cholesterol 37, HDL Cholesterol 47, Cholesterol/HDL Ratio 3.6 H, 25-OH Vitamin D Total 37.1, TSH 0.47, Free T4 0.79 I & O for Last 24 hours: Intake & Output 02/23/24 02/24/24 02/25/24 02/26/24 23:59 23:59 23:59 23:59 Intake Total 300 / 300 720 / 720 Output Total 300 / 700 400 / 400 Balance 0 / -400 320 / 320 Weight 90.718 kg 100.652 kg Constitutional Constitutional: no acute distress *Routine HEENT Exam Head: Present normocephalic Eye: Present EOMI and PERRL ENT: Present mucous membranes moist *Routine Neck Exam Neck: Present supple; Absent lymphadenopathy *Routine Respiratory Exam Respiratory: Present CTA bilaterally *Routine Cardiovascular Exam Cardiovascular: Present RRR *Routine Abdominal Exam Abdominal: Present soft and normoactive bowel sounds; Absent tenderness *Routine Extremities Exam Extremities: Absent cyanosis, clubbing or edema *Routine Skin Exam Skin: Present warm; Absent rash *Routine Neurological Exam Neurological: Present alert and oriented X3 Assessment and Plan *Assessment and plan (1) Syncope: Status: Acute Qualifiers: Syncope type: unspecified Qualified Code(s): R55 - Syncope and collapse Category: Medical Code(s): R55 - Syncope and collapse (2) Schizophrenia: Status: Acute Qualifiers: Schizophrenia type: unspecified Qualified Code(s): F20.9 - Schizophrenia, unspecified Category: Medical Code(s): F20.9 - Schizophrenia, unspecified (3) Hx of drug overdose: Status: Acute Category: Medical Code(s): Z91.89 - Other specified personal risk factors, not elsewhere classified (4) Hypertension: Status: Acute Qualifiers: Hypertension type: unspecified Qualified Code(s): I10 - Essential (primary) hypertension Category: Medical Code(s): I10 - Essential (primary) hypertension (5) Anxiety: Status: Acute Category: Medical Code(s): F41.9 - Anxiety disorder, unspecified Plan 38-year-old obese female, resident of [facility] with PMHxof schizophrenia, polysubstance abuse, reported multiple episodes of syncope in the last 6 months who presents emergency department for evaluation. initial work up hematologic labs are nonactionable, mild hyperkalemia which does not require any intervention at this time, no LEONARDA, hCG negative. CT imaging shows no acute process. ED requested admission. discussion made about medical history and risk factors. Agreed for admission. Plan as follow: -Syncope: patient was found down unresponsive by family. To rule out syncope, drug overdose, hypoglycemia; History of schizophrenia and drug abuse: Admit patient for continuous cardiac monitoring. Vital signs per unit protocol Obtain UA and drug screen. Positive for marijuana Ordered CBC CMP lipid panel, thyroid function and A1c Patient has not been taking her medications recently. Unclear why Resume aripiprazole 10 mg Monitor for withdrawal symptoms -Hypertension: On lisinopril. Resumed Lovenox for DVT prophylaxis. On Protonix Regular diet Full code await cardiology evaluation, likely dc tomorrow
[2024-02-26] MEDS: MELATONIN 5MG TABLET 10 MG PO (21:08)
[2024-02-27] VITALS: BP 126/68; PULSE 70; PULSE 90; RESP 16; TEMP 36.9; O2SAT 94
[2024-02-27 04:00] VITALS: BP 121/79; PULSE 80; PULSE 81; RESP 16; TEMP 37.2; O2SAT 97; BMI 37.5
[2024-02-27] MEDS: HEPARIN SODIUM 5,000 UNIT/ML VIAL 5000 UNIT SQ (04:56)
--- NOTE | 2024-02-27 05:47 | PC.NURSE ---
Patient roaming halls, asking for nicotine patch, could not give nicotine patch at this time. Ask to go smoke, educated patient about tobacco free facility policy. Patient states This is illegal, you cant keep me here . CHARGE MANAGER Neal notified. Stated Okay, she can leave . Educated patient on the risk of leaving AMA. State Guardian called, stated would document to records. [facility] stated Okay, we will keep a watch out . Patient signed AMA, and walked to front door.
--- NOTE | 2024-03-21 08:05 | P.DS_ITS ---
General Admission date:: 02/25/24 Discharge date: 02/27/24 HPI HPI HPI: This is a 38-year-old obese female, resident of [facility] with PMHxof schizophrenia, polysubstance abuse, reported multiple episodes of syncope in the last 6 months who presents emergency department for evaluation. Patient stated she was sitting on a bench prior to dinner when she had a episode of passing out, she does not remember and woke up on the ground. She states that she has had some episodes of passing out while walking, some while sitting over the last 6 months. She had 3 episodes today all while sitting. family had no visualized any of this episode, however today patient has been found in the ground unresponsive. Due to persistent symptoms she presents here for continued evaluation. Admitted for further monitoring Hospital Course Hospital Course Hospital Course: patient left AMA, see same date progress note Exam Data for Last 24 hours Vital signs and Labs for Last 24 Hours: Temp Pulse Resp BP Pulse Ox O2 Del Method 98.9 F 81 16 121/79 97 Room Air 02/27/24 04:00 02/27/24 04:00 02/27/24 04:00 02/27/24 04:00 02/27/24 04:00 02/27/24 05:00 DS: Diagnosis Discharge Diagnosis (1) Syncope: Status: Acute Code(s): R55 - Syncope and collapse Qualifiers: Syncope type: unspecified Qualified Code(s): R55 - Syncope and collapse (2) Schizophrenia: Status: Acute Code(s): F20.9 - Schizophrenia, unspecified Qualifiers: Schizophrenia type: unspecified Qualified Code(s): F20.9 - Schizophrenia, unspecified (3) Hx of drug overdose: Status: Acute Code(s): Z91.89 - Other specified personal risk factors, not elsewhere classified (4) Hypertension: Status: Acute Code(s): I10 - Essential (primary) hypertension Qualifiers: Hypertension type: unspecified Qualified Code(s): I10 - Essential (primary) hypertension (5) Anxiety: Status: Acute Code(s): F41.9 - Anxiety disorder, unspecified Meds Home Medications and Allergies Home Medications Medication Instructions Recorded Confirmed Type aripiprazole 10 mg tablet (Abilify) 10 mg PO DAILY 02/25/24 02/27/24 History lisinopril 10 mg tablet 10 mg PO DAILY 02/25/24 02/27/24 History melatonin 10 mg tablet 10 mg PO DAILY 02/25/24 02/27/24 History New Prescriptions to Start Prescriptions: Allergies Allergy/AdvReac Type Severity Reaction Status Date / Time No Known Allergies Allergy Verified 01/24/24 18:55 Discharge Plan Disposition Patient Disposition: Left Against Medical Advice Condition: Good Providers Admit Provider: Bety Chavira Attending Provider: Bety Chavira
== END 2024-02-27 05:38 | disposition left against medical advice (07) ==
LOC: ER 19:45 → 2ND 20:29
PROVIDERS: Nurse Practitioner Family; Admitting Provider Internal Medicine; Emergency Provider Emergency Medicine; Visit Provider Internal Medicine
DX: R55 Syncope and collapse (principal); F20.9 Schizophrenia, unspecified; I10 Essential (primary) hypertension; F41.9 Anxiety disorder, unspecified; F17.210 Nicotine dependence, cigarettes, uncomplicated; Z79.899 Other long term (current) drug therapy; Z87.898 Personal history of other specified conditions
CPT/HCPCS: 36415; 70450; 71045; 80053; 80061; 80307; 81001; 82306; 83036; 83735; 84100; 84439; 84443; 84703; 85025; 87086; 99285; G0378

== ENCOUNTER 2024-02-27 17:05 | Emergency (ER) | payer MEDICAID, SELFPAY ==
[2024-02-27 17:05] VITALS: BP 142/96; PULSE 91; RESP 20; TEMP 36.8; O2SAT 94; BMI 34.9
--- NOTE | 2024-02-27 17:05 | ECG_ITS ---
APPROVED REPORT Exam: Resting ECG HR:90 bpm ECG Measurements Heart Rate 90 AXES MI 157 P 56 QRSd 84 QRS 62 QT 341 T 57 QTc 389 Conclusion SINUS RHYTHM NORMAL ECG Electronically signed by : LA DOE, 03/03/2024 04:35:12
--- NOTE | 2024-02-27 17:08 | XR_ITS ---
PROCEDURE INFORMATION: Exam: XR Chest Exam date and time: 02/27/2024 5:11 PM Age: 38 years old Clinical indication: Sternal or substernal pain; Additional info: Cp TECHNIQUE: Imaging protocol: Radiologic exam of the chest. Views: 1 view. COMPARISON: CR XR CHEST PORTABLE 02/25/2024 6:06 PM FINDINGS: Lungs: Unremarkable. No consolidation. Pleural spaces: Unremarkable. No pleural effusion. No pneumothorax. Heart/Mediastinum: Unremarkable. No cardiomegaly. Bones/joints: Unremarkable. IMPRESSION: Stable chest x-ray with no acute disease.
--- NOTE | 2024-02-27 17:09 | HMH.EDCP ---
Discharge Plan Disposition Patient Disposition: Home, Self-Care Chief Complaint: Chest Pain Prescriptions Prescriptions: No Action aripiprazole [Abilify] 10 mg tablet 10 mg PO DAILY Patient Comments: Take 1 tablet by mouth every evening lisinopril 10 mg tablet 10 mg PO DAILY Patient Comments: Take 1 tablet by mouth once a day melatonin 10 mg tablet 10 mg PO DAILY Patient Comments: Take 1 tablet by mouth every night at bedtime Referrals Follow up/Referrals: Lonnie Calzada APRN [Primary Care Provider] - See instructions Evan Olson MD [Staff Physician] - See instructions Activity Restrictions/Add. Instructions Additional Instructions/Restrictions: At this time it was felt you are safe to be discharged home. If new or worsening symptoms please do not hesitate to return the emergency department. Please call and schedule appoint with Dr. Olson for your chest pain as soon as you are able. Clinical Impressions Clinical Impression: Chest pain Discharge ED Provider: Elmo Lauren General Chief Complaint: Chest Pain Stated Complaint: Chest Pain Time Seen by Provider: 02/27/24 17:08 Mode of Arrival: EMS Source of Information: Patient and EMS Limitations: No Limitations Description of Symptoms (Recalled from ER Triage Doc. by RN): 38 F presents via EMS from [place] with continued complaints of chest pain and anxiety issues. Patient reports she left AMA last night for personal reasons. Patient NAD otherwise, VSS. History of Present Illness HPI narrative: Patient is a 38-year-old female past medical history of schizophrenia, syncope who presents emergency department for evaluation of chest pain. Onset was acute, occurring earlier today, persistent, substernal. She has associated restlessness . She was reportedly seen last night and signed out AMA for personal reasons . I saw this patient recently for undifferentiated syncope for which she was admitted cleared and discharged after resuming her home aripiprazole and cardiac monitoring. No other acute complaints at this time. Related Data Home Medications Medication Instructions Recorded Confirmed aripiprazole 10 mg tablet (Abilify) 10 mg PO DAILY 02/25/24 02/27/24 lisinopril 10 mg tablet 10 mg PO DAILY 02/25/24 02/27/24 melatonin 10 mg tablet 10 mg PO DAILY 02/25/24 02/27/24 Allergies Allergy/AdvReac Type Severity Reaction Status Date / Time No Known Allergies Allergy Verified 01/24/24 18:55 [facility] Disclaimer: The information contained in this section may have been updated after the patient was seen, as this information can be updated by other users. Medical History (Updated 02/27/24 @ 21:04 by Elmo Lauren MD) Hx of drug overdose Anxiety Hypertension Surgical History H/O LEEP Social History Smoking Status: Current every day smoker alcohol intake: never current occupational status: other Travel in the last 8 weeks: None ROS Obtained: Yes Systems reviewed as appropriate & no additional complaints except as documented Physical Exam General General appearance: alert and in no apparent distress Head Head exam: atraumatic and normocephalic Eye Eye exam: Present PERRL and EOMI ENT ENT exam: Present mucous membranes moist Neck Neck exam: Present normal inspection Chest Chest inspection: Present normal inspection and symmetric chest wall rise Respiratory Respiratory exam: Present normal lung sounds bilaterally; Absent respiratory distress Cardiovascular Cardiovascular exam: Present regular rate and normal rhythm Abdominal Exam Abdominal exam: Present soft; Absent tenderness Extremities Exam Extremities exam: Present normal inspection Neurological Exam Neurological exam: Present alert Psychiatric Psychiatric exam: Present normal affect Skin Skin exam: Present warm and dry HEART Score HEART Score HEART Score assessment performed?: Yes History (anamnesis): Slightly suspicious ECG: Normal Age: <45 years Risk factors: 1-2 risk factors Troponin: </= normal limit HEART Score: 1 Critical Care Critical Care Time Critical Care Time: No Medical Decision Making Karel Inquiry Pt receiving controlled substance: No Vital Signs Vital Signs: 02/27/24 17:05 02/27/24 17:10 02/27/24 17:51 Temperature 98.3 F Temperature Source Oral Pulse Rate 90 92 H Pulse Rate [Right] 91 H Respiratory Rate 20 30 H Blood Pressure 145/93 H Blood Pressure [Left Arm] 142/96 H Blood Pressure Mean [Left Arm] 111 Blood Pressure Source [Left Arm] Automatic Cuff Blood Pressure Position [Left Arm] Sitting 02 Sat by Pulse Oximetry 94 L 94 L Oxygen Delivery Method Room Air 02/27/24 18:00 02/27/24 18:30 Temperature Temperature Source Pulse Rate 88 82 Pulse Rate [Right] Respiratory Rate 28 H 23 Blood Pressure 146/92 H 145/100 H Blood Pressure [Left Arm] Blood Pressure Mean [Left Arm] Blood Pressure Source [Left Arm] Blood Pressure Position [Left Arm] 02 Sat by Pulse Oximetry 94 L 97 Oxygen Delivery Method Room Air Lab Data Labs: Lab Results 02/27/24 17:15: WBC 10.5, RBC 5.10, Hgb 15.0, Hct 44.6, MCV 87.4, MCH 29.3, MCHC 33.6, RDW 14.1, Plt Count 277, MPV 7.5, Neut % (Auto) 64.7, Lymph % (Auto) 22.7, [place] % (Auto) 5.0, Eos % (Auto) 6.8, Baso % (Auto) 0.8, Neut # (Auto) 6.8, Lymph # (Auto) 2.4, [place] # (Auto) 0.5, Eos # (Auto) 0.7 H, Baso # (Auto) 0.1, Sodium 139, Potassium 4.0, Chloride 111 H, Carbon Dioxide 19 L, Anion Gap 13.0, BUN 12, Creatinine 0.90, Estimated Creat Clear 126, Estimated GFR 70, Est GFR ( Amer) 84, Glucose 104 H, Calcium 9.2, Total Bilirubin 0.3, AST 39 H D, ALT 29, Alkaline Phosphatase 86, Troponin I < 0.01, Total Protein 7.3, Albumin 4.1 D, Globulin 3.2, Albumin/Globulin Ratio 1.3 02/27/24 19:48: Troponin I < 0.01 02/27/24 17:15 02/27/24 17:15 Response Orders (Tests/Meds): ED MEDICATIONS Discontinued Medications Generic Name Dose Route Start Last Admin Trade Name Karol PRN Reason Stop Dose Admin Acetaminophen 1,000 mg 02/27/24 17:08 02/27/24 17:30 Acetaminophen 1,000mg/100ml Vial IV 02/27/24 17:09 1,000 mg ONCE ONE Administration Belladonna Alkaloids 60 ml 02/27/24 17:08 02/27/24 17:29 Belladonna Alkaloids 60 Ml Ml PO 02/27/24 17:09 60 ml ONCE ONE Administration Hydroxyzine Pamoate 25 mg 02/27/24 17:08 02/27/24 17:29 Hydroxyzine Pamoate 25mg Capsule PO 02/27/24 17:09 25 mg ONCE ONE Administration ORDERS Category Date Time Status CXR --portable [XR chest portable] Stat Exams 02/27/24 17:08 Completed CBC w/Auto Diff [Complete Blood Count Auto Diff] Stat Lab 02/27/24 17:15 Completed CMP [Comprehensive Metabolic Panel] Stat Lab 02/27/24 17:15 Completed Trop I [Troponin I] Stat Lab 02/27/24 17:15 Completed Troponin I Q3H Lab 02/27/24 19:48 Completed Troponin I Q3H Lab 02/27/24 23:15 Ordered ECG Data Tracing #1: ECG Narrative: Independently interpreted by me me, rate is 90, rhythm is regular, axis is normal, no ST elevation in anatomical contiguous leads, QTc 389. MDM Narrative Medical Decision Narrative: In summary patient is a 38-year-old female past medical history described above presents emergency department for evaluation of chest pain and restlessness. Patient is hemodynamically stable nontoxic-appearing upon arrival, afebrile. It is unlikely that patient's pain is cardiac in nature however workup will be conducted with hematologic labs, chest x-ray, EKG, serial troponins. Initial inventions include GI cocktail, acetaminophen, hydroxyzine. Workup reviewed by me, hematologic labs are nonactionable, serial troponins undetectably low. Upon repeat evaluation patient continued to be well-appearing, hemodynamically stable, eating at bedside.. Given this patient is appropriate for discharge at this time.
[2024-02-27 17:10] VITALS: PULSE 90
[2024-02-27 17:27] LABS: Basophils # 0.1 K/mm3 (0-0.2); Basophils % 0.8 % (0.1-2.0); Eosinophils # 0.7 K/mm3 (0.0-0.4); Eosinophils % 6.8 % (0.1-12.0); Hematocrit 44.6 % (37.0-47.0); Lymphocytes # 2.4 K/mm3 (0.7-4.5); Lymphocytes % 22.7 % (10-50); Mean Corpuscular HGB Conc 33.6 g/dL (31.8-35.4); Mean Corpuscular Hemoglobin 29.3 pg (27.0-31.2); Mean Corpuscular Volume 87.4 fl (81-99); Mean Platelet Volume 7.5 fl (7.4-10.4); Monocytes # 0.5 K/mm3 (0.1-1.0); Neutrophils # 6.8 K/mm3 (1.8-7.8); Neutrophils % 64.7 % (37.0-80.0); Platelet Count 277 K/mm3 (142-424); Red Cell Distribution Width 14.1 % (11.5-17.5); White Blood Count 10.5 K/mm3 (4.8-10.8)
[2024-02-27] MEDS: hydrOXYzine pamoate 25MG CAPSULE 25 MG PO (17:29)
[2024-02-27] MEDS: BELLADONNA ALKALOIDS 60 ML ML PO (17:29)
[2024-02-27] MEDS: ACETAMINOPHEN 1,000MG/100ML VIAL 1000 MG IV (17:30)
[2024-02-27 17:42] LABS: Chloride 111 mmol/L (98-107); Sodium 139 mmol/L (136-145)
[2024-02-27 17:45] LABS: Alanine Aminotransferase 29 U/L (12-78); Albumin Level 4.1 g/dl (3.5-5.0); Albumin/Globulin Ratio 1.3 (1.1-1.8); Alkaline Phosphatase 86 U/L (38-126); Aspartate Amino Transferase 39 U/L (14-36); Bilirubin,Total 0.3 mg/dl (0.2-1.3); Blood Urea Nitrogen 12 mg/dl (7-17); Carbon Dioxide 19 mmol/L (22.0-30.0); Creatinine Clearance Estimated 126 mL/min (50-200); Estimated Glomerular Filt Rate 70 ml/min (>60); GFR (African American) 84 ML/MIN (>60); Globulin 3.2 g/dL (1.3-3.2); Total Protein,Serum 7.3 g/dl (6.3-8.2)
[2024-02-27 17:46] LABS: Calcium 9.2 mg/dl (8.4-10.2); Glucose 104 mg/dl (74-100)
[2024-02-27 17:51] VITALS: BP 145/93; PULSE 92; RESP 30; O2SAT 94
[2024-02-27 18:00] VITALS: BP 146/92; PULSE 88; RESP 28; O2SAT 94
[2024-02-27 18:00] LABS: Troponin I < 0.01 ng/ml (0.00-0.034)
--- NOTE | 2024-02-27 18:25 | PC.NURSE ---
PT WAS GIVEN A WARM BLANKET AND REMOTE FOR TV WAS ASKING FOR A PIE SO CALLED DIETARY
[2024-02-27 18:30] VITALS: BP 145/100; PULSE 82; RESP 23; O2SAT 97
[2024-02-27 20:57] LABS: Troponin I < 0.01 ng/ml (0.00-0.034)
[2024-02-27 21:14] VITALS: BP 131/84; PULSE 81; RESP 16; TEMP 36.8; O2SAT 98
--- NOTE | 2024-02-27 21:22 | PC.NURSE ---
Isamar on their way to pickup patient
== END 2024-02-27 21:33 | disposition home or self-care (01) ==
PROVIDERS: Emergency Provider Emergency Medicine; PCP Nurse Practitioner Acute Care
DX: R07.9 Chest pain, unspecified; I10 Essential (primary) hypertension; F17.210 Nicotine dependence, cigarettes, uncomplicated; F20.9 Schizophrenia, unspecified; F41.1 Generalized anxiety disorder
CPT/HCPCS: 71045; 80053; 84484; 85025; 93005; 96374; 99284; J0131

== ENCOUNTER 2024-04-10 14:03 | Emergency (ER) | payer MEDICAID, SELFPAY ==
[2024-04-10 14:04] VITALS: BP 134/98; PULSE 103; RESP 20; TEMP 36.4; O2SAT 98; BMI 33.3
--- NOTE | 2024-04-10 14:04 | ED_ITS ---
<Statement entered by Radha Noyola MD - 04/10/24 22:59> I was consulted by the BRIA, and we discussed the complexity of the problems being addressed. I approved the treatment and management plan for this patient's care in the emergency department, thus performing a substantive portion of the medical decision making. Radha Noyola MD, TAN, FACEP Discharge Plan Disposition Patient Disposition: Home, Self-Care Condition: Good Prescriptions Prescriptions: No Action aripiprazole [Abilify] 10 mg tablet 10 mg PO DAILY Patient Comments: Take 1 tablet by mouth every evening lisinopril 10 mg tablet 10 mg PO DAILY Patient Comments: Take 1 tablet by mouth once a day melatonin 10 mg tablet 10 mg PO DAILY Patient Comments: Take 1 tablet by mouth every night at bedtime Referrals Follow up/Referrals: Provider,ReferralMD [Primary Care Provider] - See instructions Activity Restrictions/Add. Instructions Additional Instructions/Restrictions: Follow-up with your PCP in 1 week. Please make an appointment with your mental health provider upon discharge. Return to ER for any worsening signs or symptoms as needed. Clinical Impressions Clinical Impression: Acute upper respiratory infection, Schizophrenia, Chronic pain Discharge ED Provider: Radha Noyola General Adult HPI General Chief complaint: Extremity Injury, Lower Stated complaint: chest congestion, fever, pain in right leg Time Seen by Provider: 04/10/24 14:04 History of Present Illness HPI narrative: Patient presents for evaluation of multiple complaints. Patient reports that she has a cough congestion and feels feverish and is requesting specific test including COVID and flu, patient states that she has chronic right lower extremity pain after a previous operation 2 years ago and is requesting a Toradol shot and gabapentin, patient is lastly stating that she is schizophrenic and that she wishes to be sent to [place] for psychiatric medication management as she is having auditory and visual hallucinations including seeing and talking to God . Patient did have a referral previously to [facility] however left the hospital AGAINST MEDICAL ADVICE prior to being transferred there. Currently denies cardiac chest pain chills hemoptysis hematochezia melena nausea vomiting diarrhea calf pain hematuria dysuria Related Data Home Medications Medication Instructions Recorded Confirmed aripiprazole 10 mg tablet (Abilify) 10 mg PO DAILY 02/25/24 02/27/24 lisinopril 10 mg tablet 10 mg PO DAILY 02/25/24 02/27/24 melatonin 10 mg tablet 10 mg PO DAILY 02/25/24 02/27/24 Allergies Allergy/AdvReac Type Severity Reaction Status Date / Time No Known Allergies Allergy Verified 01/24/24 18:55 [facility] Disclaimer: The information contained in this section may have been updated after the patient was seen, as this information can be updated by other users. Medical History (Updated 04/10/24 @ 17:25 by RAGINI Shaw) Hx of drug overdose Anxiety Hypertension Surgical History H/O LEEP Social History Smoking Status: Current every day smoker alcohol intake: never current occupational status: other Travel in the last 8 weeks: None ROS Obtained: Yes Systems reviewed as appropriate & no additional complaints except as documented Physical Exam General General appearance: alert and in no apparent distress Neck Neck exam: Absent lymphadenopathy Respiratory Respiratory exam: Present normal lung sounds bilaterally; Absent respiratory distress, wheezes, stridor or accessory muscle use Cardiovascular Cardiovascular exam: Present regular rate, normal rhythm and normal heart sounds Extremities Exam Extremities exam: Present normal inspection, full ROM and tenderness (In the right lower extremity only. Patient has tenderness to palpation over the length of the lateral and anterior compartments but no palpable cords no posterior tenderness no erythema no edema and patient is neurovascular intact distally.) Neurological Exam Neurological exam: Present alert, oriented X3 and CN II-XII intact Psychiatric Psychiatric exam: Present normal affect, normal mood and other (Patient is reporting frequent auditory and visual hallucinations however explains this very appropriately at the time of my exam); Absent homicidal ideation or suicidal ideation Medical Decision Making Medical Records Medical records reviewed: Yes I reviewed the patient's medical records. Karel Inquiry Pt receiving controlled substance: No Vital Signs: 04/10/24 14:04 04/10/24 14:19 Temperature 97.5 F L Temperature Source Oral Pulse Rate 104 H Pulse Rate [Right Radial] 103 H Respiratory Rate 20 Blood Pressure [Right Arm] 134/98 H Blood Pressure Mean [Right Arm] 110 02 Sat by Pulse Oximetry 98 97 Oxygen Delivery Method Room Air Lab Data Lab results reviewed: Yes I reviewed the patient's lab results. Lab Results 04/10/24 14:39: SARS-CoV-2 (PCR) Not detected, Influenza A Untype (PCR) Not detected, Influenza Type B (PCR) Not detected 04/10/24 14:45: WBC 7.3, RBC 4.82, Hgb 14.0, Hct 42.2, MCV 87.7, MCH 29.1, MCHC 33.2, RDW 14.4, Plt Count 273, MPV 7.7, Neut % (Auto) 62.1, Lymph % (Auto) 22.8, [place] % (Auto) 5.1, Eos % (Auto) 9.2, Baso % (Auto) 0.9, Neut # (Auto) 4.5, Lymph # (Auto) 1.7, [place] # (Auto) 0.4, Eos # (Auto) 0.7 H, Baso # (Auto) 0.1, Sodium 138, Potassium 3.7, Chloride 115 H, Carbon Dioxide 21 L, Anion Gap 5.7, BUN 13, Creatinine 1.00, Estimated Creat Clear 108, Estimated GFR 62, Est GFR ( Amer) 75, Glucose 120 H, Calcium 9.1, Total Bilirubin 0.4, AST 27, ALT 24, Alkaline Phosphatase 88, Total Protein 6.9, Albumin 3.9, Globulin 3.0, Albumin/Globulin Ratio 1.3, Serum HCG, Qual Negative 04/10/24 15:33: Urine Color Yellow, Urine Appearance Sl cloudy, Urine pH 6.0, Ur Specific [place] >= 1.030, Urine Protein Negative, Urine Glucose (UA) Negative, Urine Ketones Negative, Urine Blood Negative, Urine Nitrate Negative, Urine Bilirubin Negative, Urine Urobilinogen 0.2, Ur Leukocyte Esterase Negative, Urine RBC None, Urine WBC None, Ur Squamous Epith Cells 3-5, Calcium Oxalate Crystal 4+, Urine Bacteria None, Urine Opiates Screen Negative, Urine Methadone Screen Negative, Ur Barbituates Screen Negative, Ur Phencyclidine Scrn Negative, Ur Amphetamines Screen Negative, U Benzodiazepines Scrn Negative, Urine Cocaine Screen Negative, U Marijuana (THC) Screen Positive H 04/10/24 14:45 04/10/24 14:45 Orders (Tests/Meds): ED MEDICATIONS Generic Name Dose Route Start Last Admin Trade Name Freq PRN Reason Stop Dose Admin Ketorolac Tromethamine 60 mg 04/10/24 17:27 Ketorolac 60mg/2ml Vial IM 04/10/24 17:28 ONCE ONE Discontinued Medications Generic Name Dose Route Start Last Admin Trade Name Kraol PRN Reason Stop Dose Admin Acetaminophen 1,000 mg 04/10/24 14:22 04/10/24 14:50 Acetaminophen 500mg Tab PO 04/10/24 14:23 1,000 mg ONCE ONE Administration Ibuprofen 800 mg 04/10/24 14:22 04/10/24 14:50 Ibuprofen 400 Mg Tablet PO 04/10/24 14:23 800 mg ONCE ONE Administration ORDERS Category Date Time Status Chest XR -- portable [XR chest portable] Stat Exams 04/10/24 14:22 Completed CBC w/Auto Diff [Complete Blood Count Auto Diff] Stat Lab 04/10/24 14:45 Completed CMP [Comprehensive Metabolic Panel] Stat Lab 04/10/24 14:45 Completed Drug Screen,Urine Stat Lab 04/10/24 15:33 Completed Rapid PCR Covid and Flu A/B Stat Lab 04/10/24 14:39 Completed Serum [HCG Qualitative, Serum] Stat Lab 04/10/24 14:45 Completed Urinalysis and Microscopic Stat Lab 04/10/24 15:33 Completed CA venous doppler LE RT Stat Y 04/10/24 14:31 Completed Medical Decision Narrative: In summary patient is a 38-year-old female who presents to the emergency department for evaluation of multiple complaints including chest congestion subjective fever chronic right lower extremity pain and schizophrenia symptoms.. Patient is hemodynamically stable upon arrival, afebrile. Physical exam is remarkable for clear breath sounds without any adventitious sounds, right lower extremity pain on palpation but no obvious evidence of acute abnormality including edema erythema palpable cords and patient has a negative Homans' sign. Currently Glascow coma score is 15 and patient is appropriate and reporting auditory and visual hallucinations but has no flight of ideas has no tram no pressured speech etc. Differential diagnosis includes viral versus bacterial upper respiratory tract infection, COPD exacerbation, chronic pain versus DVT, and schizophrenia decompensation etc.. Initial workup will be conducted with hematologic labs ultrasound for DVT, chest x-ray. Initial interventions include Toradol and Motrin. Initial workup reviewed by me and her hematologic labs are nonactionable, ultrasound shows no blood clot, chest x-ray shows no acute processes via my informal interpretation.. Upon repeat evaluation patient still has a Glascow coma score 15 and is still interested in [facility] evaluation/referral.. Given this we have contacted [facility] to see if patient is appropriate. We await their intake evaluation. Patient is however [place] and requires approval for [facility] to admit. Patient now has been accepted at [place] and will be transported forth with Critical Care Critical Care Time Critical Care Time: No
[2024-04-10 14:19] VITALS: PULSE 104; O2SAT 97
--- NOTE | 2024-04-10 14:22 | XR_ITS ---
FINAL REPORT CLINICAL HISTORY: Cough congestion COMPARISON: 02/27/2024 FINDINGS: SINGLE-VIEW CHEST The heart size is normal. The mediastinum is normal. There are mild bibasilar opacities, favor atelectasis. There is no pneumothorax. IMPRESSION: Mild bibasilar atelectasis. Reviewed, Interpreted and Dictated by Ambrocio Felix III, MD Transcribed by Maya King Authenticated and [facility]
--- NOTE | 2024-04-10 14:31 | CA_ITS ---
FINAL REPORT TECHNIQUE: Color Doppler, duplex Doppler and compression sonography of the right lower extremity venous system was performed. CLINICAL HISTORY: PAIN RLE,NKI FINDINGS: There is no evidence of deep venous thrombosis from the level of the groin to the calf. The veins are patent and compressible. IMPRESSION: No evidence of deep venous thrombosis right lower extremity. Reviewed, Interpreted and Dictated by Ambrocio Felix III, MD Transcribed by Maya King Authenticated and [facility]
--- NOTE | 2024-04-10 14:40 | PC.NURSE ---
Went to adjust patients BP cuff and pt states, Can you not put that on to tight? I responded with it has to be a little snug to be an accurate reading, and she let me put it on her right arm. As soon as I walked out of the room before it finished reading the blood pressure, the patient ripped off the cuff again. Charge Nurse, JanuaryMariza rivera.
[2024-04-10 14:48] LABS: Coronavirus 19, PCR Not Detected (NotDetected); Influenza A, PCR Not Detected (NotDetected); Influenza B, PCR Not Detected (NotDetected)
[2024-04-10] MEDS: ACETAMINOPHEN 500MG TAB 1000 MG PO (14:50)
[2024-04-10] MEDS: IBUPROFEN 400 MG TABLET 800 MG PO (14:50)
[2024-04-10 14:55] LABS: Basophils # 0.1 K/mm3 (0-0.2); Basophils % 0.9 % (0.1-2.0); Eosinophils # 0.7 K/mm3 (0.0-0.4); Eosinophils % 9.2 % (0.1-12.0); Hematocrit 42.2 % (37.0-47.0); Lymphocytes # 1.7 K/mm3 (0.7-4.5); Lymphocytes % 22.8 % (10-50); Mean Corpuscular HGB Conc 33.2 g/dL (31.8-35.4); Mean Corpuscular Hemoglobin 29.1 pg (27.0-31.2); Mean Corpuscular Volume 87.7 fl (81-99); Mean Platelet Volume 7.7 fl (7.4-10.4); Monocytes # 0.4 K/mm3 (0.1-1.0); Monocytes % 5.1 % (1.7-9.3); Neutrophils # 4.5 K/mm3 (1.8-7.8); Neutrophils % 62.1 % (37.0-80.0); Platelet Count 273 K/mm3 (142-424); Red Blood Count 4.82 M/mm3 (4.20-5.40); Red Cell Distribution Width 14.4 % (11.5-17.5); White Blood Count 7.3 K/mm3 (4.8-10.8)
--- NOTE | 2024-04-10 15:00 | PC.NURSE ---
spoke with josé miguel patino intake, waiting for labs and other test to be faxed and then josé miguel will reach back out to us for evaluation of pt and further care.
[2024-04-10 15:02] LABS: Chloride 115 mmol/L (98-107); Sodium 138 mmol/L (136-145)
[2024-04-10 15:03] LABS: Potassium 3.7 mmoL/L (3.5-5.1)
[2024-04-10 15:05] LABS: Alanine Aminotransferase 24 U/L (12-78); Albumin Level 3.9 g/dl (3.5-5.0); Albumin/Globulin Ratio 1.3 (1.1-1.8); Alkaline Phosphatase 88 U/L (38-126); Anion Gap 5.7 mEq/L (5-15); Aspartate Amino Transferase 27 U/L (14-36); Bilirubin,Total 0.4 mg/dl (0.2-1.3); Blood Urea Nitrogen 13 mg/dl (7-17); Calcium 9.1 mg/dl (8.4-10.2); Carbon Dioxide 21 mmol/L (22.0-30.0); Creatinine Clearance Estimated 108 mL/min (50-200); Estimated Glomerular Filt Rate 62 ml/min (>60); GFR (African American) 75 ML/MIN (>60); Glucose 120 mg/dl (74-100); Total Protein,Serum 6.9 g/dl (6.3-8.2)
--- NOTE | 2024-04-10 15:09 | PC.NURSE ---
per doppler the scan was negative for dvt in right leg where patient is complaining of pain
[2024-04-10 15:19] LABS: HCG Qualitative, Serum Negative (Negative)
--- NOTE | 2024-04-10 15:32 | ECG_ITS ---
APPROVED REPORT Exam: Resting ECG HR:80 bpm ECG Measurements Heart Rate 80 AXES AR 160 P 49 QRSd 82 QRS 52 QT 366 T 53 QTc 402 Conclusion SINUS RHYTHM NORMAL ECG UNCONFIRMED REPORT Electronically signed by : Lio Noyola, 04/10/2024 23:16:06
--- NOTE | 2024-04-10 15:34 | PC.NURSE ---
UA sent to lab
[2024-04-10 15:44] LABS: Microscopic, Urine URINE MICROSCOPIC (MICROSCOPIC)
[2024-04-10 15:48] LABS: Appearance,Urine SL CLOUDY (Clear); Bilirubin,Urine Negative (Negative); Blood, Urine Negative (Negative); Color,Urine YELLOW (Yellow); Glucose,Urine (UA) Negative (Negative); Ketones,Urine Negative (Negative); Leukocyte Esterase,Urine Negative (Negative); Nitrate,Urine Negative (Negative); Protein,Urine Negative (Negative); Specific Gravity, Urine >= 1.030 (1.005-1.030); Urobilinogen,Urine 0.2 EU/dl (0.2)
--- NOTE | 2024-04-10 15:51 | PC.NURSE ---
pt eating food tray at BS
[2024-04-10 15:58] LABS: Calcium Oxalate Crystals,Urine 4+ /lpf
[2024-04-10 16:01] LABS: Benzodiazepines Screen,Urine Negative ng/ml (<200)
[2024-04-10 16:02] LABS: Amphetamine/Metha Screen,Urine Negative ng/ml (<1000); Barbiturates Screen,Urine Negative ng/ml (<200)
[2024-04-10 16:03] LABS: Methadone Screen,Urine Negative ng/ml (<300)
[2024-04-10 16:04] LABS: Cannabinoid Screen,Urine Positive ng/ml (<50); Cocaine Screen,Urine Negative ng/ml (<300)
[2024-04-10 16:05] LABS: Opiate Screen,Urine Negative ng/ml (<300)
[2024-04-10 16:06] LABS: Phencyclidine Screen,Urine Negative ng/ml (<25)
--- NOTE | 2024-04-10 16:07 | PC.NURSE ---
faxed paperwork to Precious at [facility] who states they will evaluate and call back
--- NOTE | 2024-04-10 16:38 | PC.NURSE ---
[facility] operator called and spoke with patient and asked intake questions, Hannah will call back after speaking with behavioral unit healthcare provider
--- NOTE | 2024-04-10 18:03 | PC.NURSE ---
pt has been accepted at [facility] by brandyn and attempted to call report however they are doing shift change currently and will call me back
[2024-04-10] MEDS: KETOROLAC 60MG/2ML VIAL 60 MG IM (18:08)
--- NOTE | 2024-04-10 18:19 | PC.NURSE ---
Called report to Akosua CHOPRA at [facility] unit, and answered all questions. ER staff notified dispatch for transport
--- NOTE | 2024-04-10 19:11 | PC.NURSE ---
police detective here to transport to [facility]
[2024-04-10 19:13] VITALS: BP 138/79; PULSE 85; RESP 18; TEMP 36.9; O2SAT 98
== END 2024-04-10 19:15 | disposition home or self-care (01) ==
PROVIDERS: Physician Assistant; Emergency Provider Student in an Organized Health Care Education/Training Program
DX: R05.9 Cough, unspecified (principal); J06.9 Acute upper respiratory infection, unspecified; M79.604 Pain in right leg; G89.29 Other chronic pain; F20.9 Schizophrenia, unspecified; F17.210 Nicotine dependence, cigarettes, uncomplicated; I10 Essential (primary) hypertension
CPT/HCPCS: 71045; 80053; 80307; 81001; 84703; 85025; 87636; 93005; 93971; 96372; 99285; J1885

== ENCOUNTER 2024-04-20 19:03 | Emergency (ER) | payer MEDICAID, SELFPAY ==
[2024-04-20 19:03] VITALS: BP 91/51; PULSE 93; RESP 18; TEMP 36.7; O2SAT 93; BMI 38.2
--- NOTE | 2024-04-20 19:16 | HMH.EDGENADL ---
Discharge Plan Disposition Patient Disposition: Home, Self-Care Prescriptions Prescriptions: No Action aripiprazole [Abilify] 10 mg tablet 10 mg PO DAILY Patient Comments: Take 1 tablet by mouth every evening lisinopril 10 mg tablet 10 mg PO DAILY Patient Comments: Take 1 tablet by mouth once a day melatonin 10 mg tablet 10 mg PO DAILY Patient Comments: Take 1 tablet by mouth every night at bedtime Referrals Follow up/Referrals: Lonnie Calzada APRN [Primary Care Provider] - See instructions Activity Restrictions/Add. Instructions Additional Instructions/Restrictions: Call your family doctor to establish care for this visit to the emergency department and schedule follow-up within 48 hours to ensure improvement. If you have any worsening of your condition or any other concerning signs or symptoms, return to the emergency department or your primary care doctor for further evaluation. Talk to your family doctor for case management and help with changing your social situation. Clinical Impressions Clinical Impression: Acute pain of right lower extremity, Light-headedness, Acute dehydration Discharge ED Provider: Frank Valentin General Adult HPI General Chief complaint: Extremity Problem,Nontraumatic Stated complaint: extremity pain Time Seen by Provider: 04/20/24 19:05 Mode of Arrival: EMS Source of Information: Patient Limitations: No Limitations Description of Symptoms (Recalled from ER Triage Doc. by RN): Patient states she walked to [place] and back and now her legs are hurting. Also states she wants a bed at [facility]. States she is currently sober she just doesn't like [place]. History of Present Illness HPI narrative: Please note that above description of symptoms, in this electronic medical record under categorization of recalled from ER triage doctor by RN are reflective of an initial nursing assessment, however, is not reflective of my full history and physical exam that was personally taken and clarified. Consequentially, this preceding description of symptoms, which may include the patient's categorized chief complaint in the EMR, do not reflect my personal clinical impression, and the ultimate description of history of present illness and patient stated complaints should be deferred to this section of the note. Unless stated otherwise or congruent with this section of the note, additional signs, symptoms, or incongruence should be interpreted as inaccurate with my clinical impression. Related Data Home Medications Medication Instructions Recorded Confirmed aripiprazole 10 mg tablet (Abilify) 10 mg PO DAILY 02/25/24 02/27/24 lisinopril 10 mg tablet 10 mg PO DAILY 02/25/24 02/27/24 melatonin 10 mg tablet 10 mg PO DAILY 02/25/24 02/27/24 Allergies Allergy/AdvReac Type Severity Reaction Status Date / Time No Known Allergies Allergy Verified 01/24/24 18:55 [facility] Disclaimer: The information contained in this section may have been updated after the patient was seen, as this information can be updated by other users. Medical History (Updated 04/20/24 @ 20:04 by Frank Valentin MD) Hx of drug overdose Anxiety Hypertension Surgical History H/O LEEP Social History Smoking Status: Current every day smoker alcohol intake: never current occupational status: other Travel in the last 8 weeks: None ROS Obtained: Yes All systems reviewed & no additional complaints except as documented Physical Exam General General appearance: alert Head Head exam: atraumatic and normocephalic Eye Eye exam: Present normal appearance, PERRL and EOMI Neck Neck exam: Present normal inspection, full ROM and trachea midline Respiratory Respiratory exam: Present normal lung sounds bilaterally; Absent respiratory distress, wheezes, stridor, accessory muscle use or prolonged expiratory phase Cardiovascular Cardiovascular exam: Present normal rhythm, tachycardia and other (Pulses equal symmetric in upper and lower extremities) Abdominal Exam Abdominal exam: Present soft; Absent distention, tenderness or pulsatile mass Extremities Exam Extremities exam: Absent edema Neurological Exam Neurological exam: Present alert, oriented X3 and CN II-XII intact; Absent motor sensory deficit Skin Skin exam: Present warm and dry; Absent diaphoresis or erythema Medical Decision Making Medical Records Medical records reviewed: Yes I reviewed the patient's medical records. Karel Inquiry Pt receiving controlled substance: No Karel was queried for this patient: No Vital Signs: 04/20/24 19:03 Temperature 98.0 F Temperature Source Oral Pulse Rate [Radial] 93 H Respiratory Rate 18 Blood Pressure [Right Arm] 91/51 L Blood Pressure Mean [Right Arm] 64 Blood Pressure Source [Right Arm] Automatic Cuff Blood Pressure Position [Right Arm] Sitting 02 Sat by Pulse Oximetry 93 L Oxygen Delivery Method Room Air Orders (Tests/Meds): ED MEDICATIONS Discontinued Medications Generic Name Dose Route Start Last Admin Trade Name Freq PRN Reason Stop Dose Admin Acetaminophen 1,000 mg 04/20/24 19:05 04/20/24 19:24 Acetaminophen 1,000mg/100ml Vial IV 04/20/24 19:06 1,000 mg ONCE ONE Administration Lactated Ringer's 1,000 mls @ 999 mls/hr 04/20/24 19:05 04/20/24 19:23 Lactated Ringer's 1000 Ml Bag IV 04/20/24 20:05 999 mls/hr .Q1H1M ONE Administration Ketorolac Tromethamine 15 mg 04/20/24 19:05 04/20/24 19:24 Ketorolac 30mg/Ml Vial IV 04/20/24 19:06 15 mg ONCE ONE Administration ORDERS Category Date Time Status CBC w/Auto Diff [Complete Blood Count Auto Diff] Stat Lab 04/20/24 19:05 Ordered CMP [Comprehensive Metabolic Panel] Stat Lab 04/20/24 19:05 Ordered Medical Decision Narrative: 38-year-old female with chronic right lower extremity pain secondary to orthopedic hardware, hyper to, hyperlipidemia, polysubstance abuse, psychiatric comorbidities presenting with multiple complaints. Patient states that she passes out frequently, this has been going on for months to years. States that she was seen at [facility], diagnosed with something I cannot remember. States that she has been feeling like she is going to pass out all day long. Was standing out in the heat and called EMS for right lower extremity pain and feeling like she was going to pass out. Patient states she has not been eating or drinking as much as she usually does, but thinks this is due to her current living situation. She is requesting to be moved to a sober living facility instead of [place] [facility], although she has not used drugs or alcohol in over 15 years, allegedly. History was obtained via conversation with patient. On arrival, patient hemodynamically stable, alert, [oriented x4, ][appropriate, ]GCS [15], moving all extremities spontaneously, pupils equal and reactive to light. Full physical exam performed and significant for unkempt appearing woman who is in no acute distress. Heart rate in the high 90s, blood pressure a little low with systolic in the 90s. Cardiopulmonary exam within normal limits, patient neurologically intact. Ambulated to bed without issue. Differential includes dehydration, orthostatic versus vasovagal presyncope, heat exhaustion, among others. Shortly after arrival, IV placed. Patient declining any other care, including fluids, labs, EKG. Because patient refusing care, well-appearing, tolerating p.o. intake, ambulating without issue, deemed appropriate for outpatient management and discharged. Structural Design Engineer disclaimer Much of this encounter note is an electronic wash tub machine operator spoken language to printed text. Electronic wash tub machine operator of the spoken language may permit errors. Although I have reviewed the note, some errors may still exist. Critical Care Critical Care Time Critical Care Time: No
[2024-04-20] MEDS: LACTATED RINGERS 1000ML 1,000 ML 999 ML IV (19:23)
[2024-04-20] MEDS: KETOROLAC 30MG/ML VIAL 15 MG IV (19:24)
[2024-04-20] MEDS: ACETAMINOPHEN 1,000MG/100ML VIAL 1000 MG IV (19:24)
--- NOTE | 2024-04-20 20:01 | PC.NURSE ---
While in the room trying to straight stick this patient, patient stated that the tourniquet was too tight and that I didn't need to hold here arm down like a 1 year old. I tried informing the patient that we needed to obtain lab work and that this was to ensure proper care. I readjusted the tourniquet to patients comfort and stuck the patient with a butterfly needle. After attempting to obtain labs patient patient requested that the needle be taken out and that if I didnt then that isn't proper bedside manner. I tried to inform the patient again that we needed to obtain lab work again and she became agitated for with me stating that when she request the needle to be pulled out it she be pulled out. I then retracted the needle and exited the room and informed Dr. Valentin and Charge Nurse Cyn that the patient was refusing labs.
--- NOTE | 2024-04-20 20:14 | PC.NURSE ---
marcie notified that patient is ready to be picked up
[2024-04-20 20:51] VITALS: BP 142/77; PULSE 88; RESP 18; TEMP 36.7; O2SAT 96
== END 2024-04-20 20:51 | disposition home or self-care (01) ==
PROVIDERS: Emergency Provider Emergency Medicine; PCP Nurse Practitioner Acute Care
DX: M79.604 Pain in right leg (principal); E86.0 Dehydration; R42 Dizziness and giddiness; R45.1 Restlessness and agitation; F17.210 Nicotine dependence, cigarettes, uncomplicated; I10 Essential (primary) hypertension; F41.9 Anxiety disorder, unspecified; F20.9 Schizophrenia, unspecified
CPT/HCPCS: 96361; 96374; 96375; 99284; 99285; J0131; J1885; J7120

== ENCOUNTER 2024-04-21 18:40 | Emergency (ER) | payer MEDICAID, SELFPAY ==
[2024-04-21 18:40] VITALS: BP 106/73; PULSE 81; RESP 16; TEMP 37.2; O2SAT 98; BMI 33.3
[2024-04-21 18:43] VITALS: PULSE 71; O2SAT 98
--- NOTE | 2024-04-21 18:44 | ECG_ITS ---
APPROVED REPORT Exam: Resting ECG HR:84 bpm ECG Measurements Heart Rate 84 AXES OR 139 P 19 QRSd 88 QRS 48 QT 361 T 32 QTc 402 Conclusion SINUS RHYTHM NONSPECIFIC T-WAVE ABNORMALITY BORDERLINE ECG Electronically signed by : KELLE OSWALD, 04/21/2024 21:21:56
--- NOTE | 2024-04-21 19:16 | PC.NURSE ---
call placed to registration to have them finish their part of chart
--- NOTE | 2024-04-21 19:18 | PC.NURSE ---
Rosa called Juan about getting the pt a ride back to their facility. Staff stated someone will be up soon to get her. CR
[2024-04-21 19:43] VITALS: BP 110/70; PULSE 70; RESP 18; TEMP 36.9; O2SAT 98
--- NOTE | 2024-04-21 20:01 | ED_ITS ---
Discharge Plan Disposition Patient Disposition: Xfer Other Condition: Good Prescriptions Prescriptions: No Action aripiprazole [Abilify] 10 mg tablet 10 mg PO DAILY Patient Comments: Take 1 tablet by mouth every evening lisinopril 10 mg tablet 10 mg PO DAILY Patient Comments: Take 1 tablet by mouth once a day melatonin 10 mg tablet 10 mg PO DAILY Patient Comments: Take 1 tablet by mouth every night at bedtime Activity Restrictions/Add. Instructions Additional Instructions/Restrictions: You were evaluated in the emergency department today. Please follow-up outpatient with a primary care provider. Return to the emergency department for new or worsening symptoms. Clinical Impressions Clinical Impression: Encounter for medical assessment, Psychiatric disturbance Discharge ED Provider: Eli Meek General Adult HPI General Chief complaint: Recheck/Abnormal Lab/Rx Stated complaint: weakness Time Seen by Provider: 04/21/24 18:41 Mode of Arrival: EMS Source of Information: Patient Limitations: No Limitations Description of Symptoms (Recalled from ER Triage Doc. by RN): feels malnourished History of Present Illness HPI narrative: This patient is a 38-year-old female with history of schizophrenia and anxiety residing [facility] presenting to the emergency department for evaluation with concern for multiple complaints. She states that she is not happy with where she is living because she feels that she is malnourished and feels like she does not see a doctor enough. She notes that she has a lot of chronic issues back from where she had surgery years ago and has resultant peripheral neuropathy. She states that she feels like she is not getting enough adequate nutrition and would like a chicken sandwich. No other concerns or complaints noted at this time. She arrives by EMS who noted that she was stable en route with reassuring vital signs. Related Data Home Medications Medication Instructions Recorded Confirmed aripiprazole 10 mg tablet (Abilify) 10 mg PO DAILY 02/25/24 02/27/24 lisinopril 10 mg tablet 10 mg PO DAILY 02/25/24 02/27/24 melatonin 10 mg tablet 10 mg PO DAILY 02/25/24 02/27/24 Allergies Allergy/AdvReac Type Severity Reaction Status Date / Time No Known Allergies Allergy Verified 01/24/24 18:55 [facility] Disclaimer: The information contained in this section may have been updated after the patient was seen, as this information can be updated by other users. Medical History Hx of drug overdose Anxiety Hypertension Surgical History H/O LEEP Social History Smoking Status: Current every day smoker alcohol intake: never current occupational status: other Travel in the last 8 weeks: None ROS Obtained: Yes All systems reviewed & no additional complaints except as documented Physical Exam General General appearance: alert and in no apparent distress Head Head exam: atraumatic and normocephalic Eye Eye exam: Present normal appearance, PERRL and EOMI ENT ENT exam: Present normal exam, normal oropharynx, mucous membranes moist and normal external ear exam Neck Neck exam: Present normal inspection, full ROM and trachea midline; Absent tenderness Chest Chest inspection: Present normal inspection and symmetric chest wall rise; Absent tenderness Respiratory Respiratory exam: Present normal lung sounds bilaterally; Absent respiratory distress, wheezes, stridor or accessory muscle use Cardiovascular Cardiovascular exam: Present regular rate and normal rhythm Abdominal Exam Abdominal exam: Present soft; Absent distention, tenderness or guarding Extremities Exam Extremities exam: Present normal inspection, full ROM and normal capillary refill; Absent tenderness or edema Back Exam Back exam: Present normal inspection and full ROM; Absent tenderness Neurological Exam Neurological exam: Present alert, oriented X3, CN II-XII intact and normal gait; Absent motor sensory deficit Psychiatric Psychiatric exam: Present normal affect, normal mood and other Expanded Psychiatric Exam Expanded psych exam: Present loose associations Skin Skin exam: Present warm and dry Medical Decision Making Medical Records Medical records reviewed: Yes I reviewed the patient's medical records. Karel Inquiry Pt receiving controlled substance: No Vital Signs: 04/21/24 18:40 04/21/24 18:43 04/21/24 19:43 Temperature 98.9 F 98.5 F Temperature Source Oral Oral Pulse Rate 71 70 Pulse Rate [Right] 81 Respiratory Rate 16 18 Blood Pressure 110/70 Blood Pressure [Right Arm] 106/73 L Blood Pressure Mean [Right Arm] 84 Blood Pressure Source Automatic Cuff Blood Pressure Position Sitting 02 Sat by Pulse Oximetry 98 98 Oxygen Delivery Method Room Air Room Air Room Air Lab Data Lab results reviewed: Yes I reviewed the patient's lab results. ECG Data Tracing #1: I reviewed this ECG and interpreted as documented below: Normal sinus rhythm with a ventricular rate of [address] changes concerning for ischemia. Normal axis and intervals ECG initial impression date: 04/21/24 ECG initial impression time: 18:58 Medical Decision Narrative: In summary, this patient is a 38-year-old female presenting to the Emergency Department for evaluation of multiple chronic complaints but mostly is concerned that she feels like she is not getting enough food and is not seeing a doctor as frequently as she should be at her current personal-nursing home. She is a [employer] and resides at [facility]. On exam, the patient is very well-appearing. She has normal vital signs on cardiac telemetry and appears very well hydrated and well-nourished. She has some flight of ideas and displays poor insight, but she has no SI, HI, or AVH and is not deemed to be a threat to herself imminently. She has been evaluated multiple times in the ED over the last 2 months for similar concerns or complaints. Ultimately, I do not feel that there is indication for admission at this time. I considered obtaining lab evaluation, however given that the patient has chronic complaints and does not appear clinically dehydrated or malnourished, I do not feel this would chemical cell changer. EKG was obtained and is reassuring. Report was called back to the patient's facility, and they arranged transport back for her. She left in stable condition. Critical Care Critical Care Time Critical Care Time: No
--- NOTE | 2024-04-21 20:10 | PC.NURSE ---
Attempted to contact [facility] for patient transportation when a resident answered the phone and could not located the [facility] employee to inform/question when employee would be to [facility] for patient pickup. Informed resident to have employee contact [facility] ER for further information.
== END 2024-04-21 20:34 | disposition other institution (70) ==
PROVIDERS: Emergency Provider Emergency Medicine; PCP Nurse Practitioner Acute Care
DX: F20.9 Schizophrenia, unspecified (principal); F17.210 Nicotine dependence, cigarettes, uncomplicated; I10 Essential (primary) hypertension
CPT/HCPCS: 93005; 99283

== ENCOUNTER 2024-04-22 18:35 | Emergency (ER) | payer MEDICAID, SELFPAY ==
[2024-04-22 18:36] VITALS: BP 103/68; PULSE 91; RESP 16; TEMP 36.6; O2SAT 96; BMI 33.3
--- NOTE | 2024-04-22 18:38 | ED_ITS ---
Discharge Plan Disposition Patient Disposition: Left Against Medical Advice Prescriptions Prescriptions: No Action aripiprazole [Abilify] 10 mg tablet 10 mg PO DAILY Patient Comments: Take 1 tablet by mouth every evening lisinopril 10 mg tablet 10 mg PO DAILY Patient Comments: Take 1 tablet by mouth once a day melatonin 10 mg tablet 10 mg PO DAILY Patient Comments: Take 1 tablet by mouth every night at bedtime Referrals Follow up/Referrals: Provider,Referral, MD [Primary Care Provider] - See instructions Clinical Impressions Clinical Impression: Left against medical advice Instructions Patient Instructions: DI for Diarrhea and Traveler's Diarrhea -- Adult, DI for Diarrhea and Traveler's Diarrhea -- Child, DI for Nausea -- Adult, DI for Nausea -- Child Discharge ED Provider: Elmo Lauren General Adult HPI <RAGINI Shaw - Last Filed: 04/22/24 19:05> General Chief complaint: Nausea/Vomiting/Diarrhea Stated complaint: Syncopy Time Seen by Provider: 04/22/24 18:36 History of Present Illness HPI narrative: Patient presents for evaluation of multiple and varying complaints that change the longer that she relates a story. Patient states that she was possible last year and then had a miscarriage 6 months later and now that she thinks he has an infection from that sometime that last year and also is withdrawing from multiple medications including meth heroin you name it and I am withdrawing from it and I am Jonesin bad . Patient initially called EMS because she had a syncopal episode however that was not mentioned in any of her complaints currently. I think patient has a psychiatric history and is actually confabulating all of her symptoms currently. Patient assessed being sent to a detox facility although the last time I saw her in the emergency department I se nt her to [facility] for her schizophrenic history. There was no mention of active drug use at that time. Drug screen was positive for only marijuana and her urine at that time was negative and that was on 04/10/2024 she ambulates without difficulty has a Kaley Coma Score 15 and has no focal neurologic deficits as she ambulates around the room. Related Data Home Medications Medication Instructions Recorded Confirmed aripiprazole 10 mg tablet (Abilify) 10 mg PO DAILY 02/25/24 02/27/24 lisinopril 10 mg tablet 10 mg PO DAILY 02/25/24 02/27/24 melatonin 10 mg tablet 10 mg PO DAILY 02/25/24 02/27/24 Allergies Allergy/AdvReac Type Severity Reaction Status Date / Time No Known Allergies Allergy Verified 01/24/24 18:55 PFSH <RAGINI Shaw - Last Filed: 04/22/24 19:05> [facility] Disclaimer: The information contained in this section may have been updated after the patient was seen, as this information can be updated by other users. Medical History Hx of drug overdose Anxiety Hypertension Surgical History H/O LEEP Social History Smoking Status: Current every day smoker alcohol intake: never current occupational status: other Travel in the last 8 weeks: None <RAGINI Shaw - Last Filed: 04/22/24 19:05> ROS Obtained: Yes Systems reviewed as appropriate & no additional complaints except as documented Physical Exam <RAGINI Shaw - Last Filed: 04/22/24 19:05> General General appearance: alert Respiratory Respiratory exam: Present normal lung sounds bilaterally Cardiovascular Cardiovascular exam: Present regular rate Abdominal Exam Abdominal exam: Present soft; Absent tenderness Extremities Exam Extremities exam: Present normal inspection and full ROM Back Exam Back exam: Present normal inspection and full ROM Neurological Exam Neurological exam: Present alert Psychiatric Psychiatric exam: Present flat affect and other (Stream of consciousness confabulation); Absent normal affect or normal mood Skin Skin exam: Present warm, dry and normal color Medical Decision Making <RAGINI Shaw - Last Filed: 04/22/24 19:05> Medical Records Medical records reviewed: Yes I reviewed the patient's medical records. Karel Inquiry Pt receiving controlled substance: No Vital Signs: 04/22/24 18:36 04/22/24 19:07 Temperature 97.9 F 97.9 F Temperature Source Oral Oral Pulse Rate 91 H Pulse Rate [Radial] 91 H Respiratory Rate 16 16 Blood Pressure 103/68 L Blood Pressure [Right Arm] 103/68 L Blood Pressure Mean [Right Arm] 79 Blood Pressure Source Automatic Cuff Blood Pressure Source [Right Arm] Automatic Cuff Blood Pressure Position Sitting Blood Pressure Position [Right Arm] Sitting 02 Sat by Pulse Oximetry 96 Oxygen Delivery Method Room Air Room Air Lab Data Lab results reviewed: Yes I reviewed the patient's lab results. Lab Results 04/22/24 18:40: Urine Color Yellow, Urine Appearance Clear, Urine pH 7.0, Ur Specific [place] 1.020, Urine Protein Trace, Urine Glucose (UA) Negative, Urine Ketones Negative, Urine Blood Negative, Urine Nitrate Negative, Urine Bilirubin Negative, Urine Urobilinogen 1.0, Ur Leukocyte Esterase Trace, Urine RBC None, Urine WBC 3-5, Ur Squamous Epith Cells 5-10, Urine Bacteria Trace, Urine HCG, Qual Negative Orders (Tests/Meds): ORDERS Category Date Time Status BMP [Basic Metabolic Panel] Stat Lab 04/22/24 18:37 Ordered CBC w/Auto Diff [Complete Blood Count Auto Diff] Stat Lab 04/22/24 18:37 Ordered Drug Screen,Urine Stat Lab 04/22/24 18:40 Received UA [Urinalysis and Microscopic] Stat Lab 04/22/24 18:40 Completed Urine , HCG Qual. Stat Lab 04/22/24 18:40 Completed Medical Decision Narrative: In summary patient is a 38-year-old female who presents to the emergency department for evaluation of multiple complaints including possible infection from last year from a then miscarriage that happened 6 months after the multiple drug uses and withdrawal from same etc. Patient reportedly called EMS with report of syncope although she made no mention of that on arrival here.. Patient is hemodynamically stable upon arrival, afebrile. Physical exam is remarkable for a Glascow coma score of apparently 15 with no focal neurologic deficits and patient ambulates about the room freely. Differential diagnosis includes confabulation versus urinary tract infection versus drug ingestion etc. Initial workup will be conducted with hematologic labs urinalysis urine drug screen. Initial interventions would actually be considered however patient has no consistent complaint that requires intervent ion therefore no initial interventions are warranted. Initial workup reviewed by me showed that she had a bland urinalysis and her urine was negative however blood could not be drawn for hematologic testing and patient refused all other further care. While patient is relating fantastical stories she does have capacity for decision-making and even asked for sandwich before she signed the AMA papers. I did have an interactive discussion with the patient that if she would not allow me to test her further that she was refusing all care and can sign out AGAINST MEDICAL ADVICE which she has elected to do.. <Elmo Lauren MD - Last Filed: 04/22/24 19:15> Vital Signs: 04/22/24 18:36 04/22/24 19:07 Temperature 97.9 F 97.9 F Temperature Source Oral Oral Pulse Rate 91 H Pulse Rate [Radial] 91 H Respiratory Rate 16 16 Blood Pressure 103/68 L Blood Pressure [Right Arm] 103/68 L Blood Pressure Mean [Right Arm] 79 Blood Pressure Source Automatic Cuff Blood Pressure Source [Right Arm] Automatic Cuff Blood Pressure Position Sitting Blood Pressure Position [Right Arm] Sitting 02 Sat by Pulse Oximetry 96 Oxygen Delivery Method Room Air Room Air Lab Data Lab Results 04/22/24 18:40: Urine Color Yellow, Urine Appearance Clear, Urine pH 7.0, Ur Specific [place] 1.020, Urine Protein Trace, Urine Glucose (UA) Negative, Urine Ketones Negative, Urine Blood Negative, Urine Nitrate Negative, Urine Bilirubin Negative, Urine Urobilinogen 1.0, Ur Leukocyte Esterase Trace, Urine RBC None, Urine WBC 3-5, Ur Squamous Epith Cells 5-10, Urine Bacteria Trace, Urine HCG, Qual Negative Orders (Tests/Meds): ORDERS Category Date Time Status BMP [Basic Metabolic Panel] Stat Lab 04/22/24 18:37 Ordered CBC w/Auto Diff [Complete Blood Count Auto Diff] Stat Lab 04/22/24 18:37 Ordered Drug Screen,Urine Stat Lab 04/22/24 18:40 Received UA [Urinalysis and Microscopic] Stat Lab 04/22/24 18:40 Completed Urine , HCG Qual. Stat Lab 04/22/24 18:40 Completed Medical Decision Narrative: In summary patient is a 38-year-old female who presents to the emergency department for evaluation of multiple complaints including possible infection from last year from a then miscarriage that happened 6 months after the multiple drug uses and withdrawal from same etc. Patient reportedly called EMS with report of syncope although she made no mention of that on arrival here.. Patient is hemodynamically stable upon arrival, a febrile. Physical exam is remarkable for a Glascow coma score of apparently 15 with no focal neurologic deficits and patient ambulates about the room freely. Differential diagnosis includes confabulation versus urinary tract infection versus drug ingestion etc. Initial workup will be conducted with hematologic labs urinalysis urine drug screen. Initial interventions would actually be considered however patient has no consistent complaint that requires intervention therefore no initial interventions are warranted. Initial workup reviewed by me showed that she had a bland urinalysis and her urine was negative however blood could not be drawn for hematologic testing and patient refused all other further care. While patient is relating fantastical stories she does have capacity for decision-making and even asked for sandwich before she signed the AMA papers. I did have an interactive discussion with the patient that if she would not allow me to test her further that she was refusing all care and can sign out AGAINST MEDICAL ADVICE which she has elected to do. I was consulted by the BRIA, and we discussed the complexity of the problems being addressed. I approved the treatment and management plan for this patient's care in the emergency department, thus performing a substantive portion of the medical decision making. Elmo Lauren MD Critical Care <RAGINI Shaw - Last Filed: 04/22/24 19:05> Critical Care Time Critical Care Time: No
[2024-04-22 18:48] LABS: Microscopic, Urine URINE MICROSCOPIC (MICROSCOPIC)
[2024-04-22 18:52] LABS: Appearance,Urine CLEAR (Clear); Bilirubin,Urine Negative (Negative); Blood, Urine Negative (Negative); Color,Urine YELLOW (Yellow); Glucose,Urine (UA) Negative (Negative); Ketones,Urine Negative (Negative); Leukocyte Esterase,Urine TRACE (Negative); Nitrate,Urine Negative (Negative); Protein,Urine TRACE (Negative)
[2024-04-22 18:54] LABS: Urine Pregnancy, HCG Qual. Negative (Negative)
--- NOTE | 2024-04-22 19:01 | PC.NURSE ---
Pt is refusing to have blood draw attempt further. Yaw Aguilar PA-C at bedside to s/w pt. She is refusing to have further testing for her concerns and is electing to sign out ama. Called [facility] for a ride back.
[2024-04-22 19:07] VITALS: BP 103/68; PULSE 91; RESP 16; TEMP 36.6; O2SAT 96
[2024-04-22 19:08] LABS: Bacteria,Urine Trace /lpf
[2024-04-22 19:12] LABS: Barbiturates Screen,Urine Negative ng/ml (<200)
[2024-04-22 19:13] LABS: Amphetamine/Metha Screen,Urine Negative ng/ml (<1000); Benzodiazepines Screen,Urine Negative ng/ml (<200)
[2024-04-22 19:14] LABS: Cannabinoid Screen,Urine Positive ng/ml (<50)
[2024-04-22 19:15] LABS: Cocaine Screen,Urine Negative ng/ml (<300); Methadone Screen,Urine Negative ng/ml (<300)
[2024-04-22 19:16] LABS: Opiate Screen,Urine Negative ng/ml (<300); Phencyclidine Screen,Urine Negative ng/ml (<25)
== END 2024-04-22 19:31 | disposition left against medical advice (07) ==
PROVIDERS: Physician Assistant; Emergency Provider Emergency Medicine
DX: F20.9 Schizophrenia, unspecified (principal); F12.90 Cannabis use, unspecified, uncomplicated; Z53.29 Procedure and treatment not carried out because of patient's decision for other reasons
CPT/HCPCS: 80307; 81001; 81025; 99283

== ENCOUNTER 2024-04-24 19:02 | Emergency (ER) | payer MEDICAID, SELFPAY ==
[2024-04-24 19:02] VITALS: BP 107/84; PULSE 88; RESP 18; TEMP 36.9; O2SAT 96; BMI 40.3
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
--- NOTE | 2024-04-24 20:05 | PC.NURSE ---
RN went into help another rn place IV and when i applied turniquet patient stated that is to tight Im gonna refuse care if its that tight and popped the tourniquet. RN told charge nurse about patient behavior as she has done this in the past and been here for the past several days in a row. medical claims manager moved patient to room 7 from chair 14
--- NOTE | 2024-04-24 20:06 | PC.NURSE ---
Pt. had blood work orders. while looking for a vein, pt. repeated c/o tourniquet too tight., Tourniquet loosened. Pt. refused blood work, than changed her arm.
[2024-04-24] MEDS: KETOROLAC 30MG/ML VIAL 15 MG IV (20:14)
[2024-04-24] MEDS: LACTATED RINGERS 1000ML 1,000 ML 999 ML IV (20:14)
[2024-04-24 20:22] LABS: Basophils % 0.4 % (0.1-2.0); Eosinophils % 9.4 % (0.1-12.0); Hemoglobin 12.9 g/dL (12.2-16.2); Lymphocytes # 2.3 K/mm3 (0.7-4.5); Lymphocytes % 22.6 % (10-50); Mean Corpuscular Hemoglobin 29.3 pg (27.0-31.2); Mean Corpuscular Volume 86.2 fl (81-99); Mean Platelet Volume 7.7 fl (7.4-10.4); Monocytes # 0.5 K/mm3 (0.1-1.0); Monocytes % 5.3 % (1.7-9.3); Neutrophils # 6.4 K/mm3 (1.8-7.8); Neutrophils % 62.4 % (37.0-80.0); Platelet Count 276 K/mm3 (142-424); Red Blood Count 4.41 M/mm3 (4.20-5.40); Red Cell Distribution Width 14.7 % (11.5-17.5); White Blood Count 10.2 K/mm3 (4.8-10.8)
[2024-04-24 20:25] LABS: Chloride 114 mmol/L (98-107); Potassium 4.6 mmoL/L (3.5-5.1); Sodium 138 mmol/L (136-145)
[2024-04-24 20:28] LABS: Alanine Aminotransferase 22 U/L (12-78); Albumin/Globulin Ratio 1.3 (1.1-1.8); Alkaline Phosphatase 73 U/L (38-126); Anion Gap 9.6 mEq/L (5-15); Aspartate Amino Transferase 31 U/L (14-36); Bilirubin,Total 0.4 mg/dl (0.2-1.3); Blood Urea Nitrogen 18 mg/dl (7-17); Carbon Dioxide 19 mmol/L (22.0-30.0); Creatinine Clearance Estimated 135 mL/min (50-200); Estimated Glomerular Filt Rate 62 ml/min (>60); GFR (African American) 75 ML/MIN (>60); Globulin 3.1 g/dL (1.3-3.2); Glucose 106 mg/dl (74-100); Total Protein,Serum 7.1 g/dl (6.3-8.2)
[2024-04-24 20:56] LABS: Hemoglobin A1C 4.8 % (4.0-6.0)
[2024-04-24 21:10] LABS: Microscopic, Urine URINE MICROSCOPIC (MICROSCOPIC)
[2024-04-24 21:16] LABS: Appearance,Urine CLEAR (Clear); Bilirubin,Urine Negative (Negative); Blood, Urine Negative (Negative); Color,Urine YELLOW (Yellow); Glucose,Urine (UA) Negative (Negative); Ketones,Urine Negative (Negative); Leukocyte Esterase,Urine TRACE (Negative); Nitrate,Urine Negative (Negative); PH,Urine 6.5 (5.0-8.5); Protein,Urine Negative (Negative); Specific Gravity, Urine 1.025 (1.005-1.030); Urobilinogen,Urine 0.2 EU/dl (0.2)
[2024-04-24 21:37] VITALS: BP 135/70; PULSE 90; RESP 20; TEMP 36.7; O2SAT 98
[2024-04-24 21:38] LABS: RBC,Urine Occasional #/hpf (0-3)
[2024-04-24 21:39] LABS: Bacteria,Urine Trace /lpf; Calcium Oxalate Crystals,Urine Trace /lpf
== END 2024-04-24 21:38 | disposition home or self-care (01) ==
PROVIDERS: Emergency Provider Emergency Medicine; PCP Nurse Practitioner Acute Care
DX: M79.604 Pain in right leg (principal); R42 Dizziness and giddiness; F20.9 Schizophrenia, unspecified; I10 Essential (primary) hypertension; F17.210 Nicotine dependence, cigarettes, uncomplicated
CPT/HCPCS: 80053; 81001; 83036; 85025; 96361; 96374; 99284; J1885; J7120

== ENCOUNTER 2024-04-29 01:01 | Emergency (ER) | payer MEDICAID, SELFPAY ==
[2024-04-29 01:01] VITALS: BP 109/64; PULSE 78; RESP 20; TEMP 36.8; O2SAT 97; BMI 34.3
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
[2024-04-29 01:22] LABS: Urine Pregnancy, HCG Qual. Negative (Negative)
--- NOTE | 2024-04-29 01:24 | PC.NURSE ---
Dr. Brice s/w pt and educated about test.
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
[2024-04-29 01:39] VITALS: BP 106/61; PULSE 82; RESP 20; TEMP 36.8; O2SAT 96
== END 2024-04-29 01:40 | disposition home or self-care (01) ==
PROVIDERS: Emergency Provider Emergency Medicine
DX: F20.9 Schizophrenia, unspecified (principal); F17.210 Nicotine dependence, cigarettes, uncomplicated
CPT/HCPCS: 81025; 99282

== ENCOUNTER 2024-05-01 19:02 | Emergency (ER) | payer MEDICAID, SELFPAY ==
[2024-05-01 19:06] VITALS: BMI 41.5
[2024-05-01 19:15] VITALS: BP 138/90; PULSE 84; RESP 20; TEMP 36.8; O2SAT 98; BMI 34.3
--- NOTE | 2024-05-01 19:36 | ED_ITS ---
Discharge Plan Disposition Patient Disposition: Home, Self-Care Condition: Good Prescriptions Prescriptions: New ondansetron 4 mg Tablet,Disintegrating 4 mg PO Q8H PRN (Reason: Nausea) Qty: 12 0RF No Action aripiprazole [Abilify] 10 mg tablet 10 mg PO DAILY Patient Comments: Take 1 tablet by mouth every evening lisinopril 10 mg tablet 10 mg PO DAILY Patient Comments: Take 1 tablet by mouth once a day melatonin 10 mg tablet 10 mg PO DAILY Patient Comments: Take 1 tablet by mouth every night at bedtime Referrals Follow up/Referrals: Provider,Referral, MD [Primary Care Provider] - See instructions Activity Restrictions/Add. Instructions Additional Instructions/Restrictions: Drink plenty of fluids. Take tylenol or ibuprofen for pain. Take the zofran as directed for nausea and vomiting. Follow up with your regular doctor. We will give you a list of primary care physicians that are taking new patients. GO TO THE ER FOR ANY WORSENING SYMPTOMS Clinical Impressions Clinical Impression: Neuropathy, Nausea Instructions Patient Instructions: Nausea and Vomiting-Adult, Ondansetron Discharge ED Provider: Lio Locke [facility] General Stated complaint: abd pain, cramps in legs Mode of Arrival: Ambulatory Source of Information: Patient Limitations: No Limitations Time Seen by Provider: 05/01/24 19:35 Description of Symptoms (Recalled from Triage Doc. by RN): PATIENT C/O STOMACH PAIN, PAIN IN LEG, ROTTING OF TEETH , AND COUGH. SHE ALSO STATES SHE IS CURRENTLY ON HER PERIOD BUT THINKS SHE MAY BE HEENT Symptoms (Recalled from RN notes): No Resp Symptoms (Recalled from RN notes): No Skin Symptoms (Recalled from RN notes): No MS Symptoms (Recalled from RN notes): No Functional Status (Recalled from RN notes): WNL History of Present Illness Provider Complaint: She states that she has a history of neuropathy. She recently moved to this area and she has lost contact with her previous pcp. She request to be prescribed gabapentin and tramadol Related Data Home Medications Medication Instructions Recorded Confirmed aripiprazole 10 mg tablet (Abilify) 10 mg PO DAILY 02/25/24 02/27/24 lisinopril 10 mg tablet 10 mg PO DAILY 02/25/24 02/27/24 melatonin 10 mg tablet 10 mg PO DAILY 05/18/24 05/20/24 Previous Rx's Medication Instructions Recorded ondansetron 4 mg disintegrating 4 mg PO Q8H PRN Nausea #12 tabs 05/01/24 tablet Allergies Allergy/AdvReac Type Severity Reaction Status Date / Time No Known Allergies Allergy Verified 01/24/24 18:55 Worker's Comp Is this a Worker's Comp case?: No [facility] Disclaimer: The information contained in this section may have been updated after the patient was seen, as this information can be updated by other users. Medical History Hx of drug overdose Anxiety Hypertension Surgical History H/O LEEP Social History Smoking Status: Current every day smoker alcohol intake: never current occupational status: other Travel in the last 8 weeks: None ROS Obtained: Yes All systems reviewed & no additional complaints except as do cumented Constitutional Constitutional: Denies chills and Denies fever(s) Eyes Eyes: Denies eye discharge ENT Ears, Nose, Mouth, and Throat: Denies dizziness, Denies otalgia and Denies sore throat Cardiovascular Cardiovascular: Denies chest pain Respiratory Respiratory: Denies shortness of breath, Denies chest congestion, Denies cough, Denies stridor and Denies wheezing Gastrointestinal Gastrointestingal: Denies nausea or vomiting Musculoskeletal Musculoskeletal: Reports system reviewed and no additional complaints, except as documented and Denies arthralgias Integumentary/Breasts Skin/Breast: Denies rash Neurologic Neurologic: Denies dizziness and Denies paresthesias Allergic/Immunologic Allergic/Immunologic: Denies wheezing Physical Exam General General appearance: alert and in no apparent distress Head Head exam: atraumatic, normocephalic and normal inspection Eye Eye exam: Present normal appearance, PERRL and EOMI ENT ENT exam: Present normal exam, normal oropharynx, mucous membranes moist, TM's normal bilaterally and normal external ear exam Neck Neck exam: Present normal inspection, full ROM and trachea midline; Absent meningismus or lymphadenopathy Chest Chest inspection: Present normal inspection and symmetric chest wall rise; Absent tenderness Respiratory Respiratory exam: Present normal lung sounds bilaterally; Absent respiratory distress Cardiovascular Cardiovascular exam: Present regular rate and normal rhythm; Absent JVD Abdominal Exam Abdominal exam: Present soft and normal bowel sounds; Absent distention, tenderness or guarding Extremities Exam Extremities exam: Present normal inspection, full ROM and normal capillary refill; Absent calf tenderness Back Exam Back exam: Present normal inspection; Absent tenderness Neurological Exam Neurological exam: Present alert and oriented X3 Psychiatric Psychiatric exam: Present normal affect and normal mood Skin Skin exam: Present warm, dry, intact and normal color Lymphatic Lymphatic Findings: no adenopathy Medical Decision Making Medical Records Medical records reviewed: No I reviewed the patient's medical records. Karel Inquiry Pt receiving controlled substance: No Vital Signs: 05/01/24 19:15 Temperature 98.2 F Temperature Source Oral Pulse Rate [Left Brachial] 84 Respiratory Rate 20 Blood Pressure [Left Arm] 138/90 Blood Pressure Mean [Left Arm] 106 Blood Pressure Source [Left Arm] Automatic Cuff Blood Pressure Position [Left Arm] Sitting 02 Sat by Pulse Oximetry 98 Oxygen Delivery Method Room Air Lab Data Lab results reviewed: Yes I reviewed the patient's lab results.
[2024-05-01 19:49] LABS: UTC Pregnancy Test, Urine Negative (Negative)
[2024-05-01 20:03] VITALS: BP 138/90; PULSE 84; RESP 20; TEMP 36.8; O2SAT 98
== END 2024-05-01 20:05 | disposition home or self-care (01) ==
PROVIDERS: Emergency Provider Nurse Practitioner Family
DX: G62.9 Polyneuropathy, unspecified (principal); R11.0 Nausea
CPT/HCPCS: 81025; 99204; 99212; G0463

== ENCOUNTER 2024-05-02 20:06 | Emergency (ER) | payer MEDICAID, SELFPAY ==
[2024-05-02 20:08] VITALS: BP 106/63; PULSE 89; RESP 18; TEMP 36.6; O2SAT 96; BMI 29.9
--- NOTE | 2024-05-02 20:10 | ED_ITS ---
<Statement entered by Serena Parker MD - 05/02/24 20:28> I was consulted by the BRIA, and we discussed the complexity of problems being addressed. I approved the treatment and management plan for this patient's care in the emergency department, thus performing a substantial portion of the medical decision making. Patient did have decision-making capacity, she was oriented and alert. She became irritated after she was declined food in the ER and told we needed to start a workup first. She refused labs or any additional workup and asked to sign out AGAINST MEDICAL ADVICE. Screening exam was reassuring. Patient was able to explain back to me their condition and the risks of leaving up to and including wosening of condition, severe life altering disability, or . Patient was able to provide reason for their decision and clearly express their decision. Patient has capacity to make this decision and left AGAINST MEDICAL ADVICE. Patient left in stable condition and ambulated independently out of the ER. Serena Parker MD Discharge Plan Disposition Patient Disposition: Left Against Medical Advice Prescriptions Prescriptions: No Action ondansetron 4 mg Tablet,Disintegrating 4 mg PO Q8H PRN (Reason: Nausea) Qty: 12 0RF aripiprazole [Abilify] 10 mg tablet 10 mg PO DAILY Patient Comments: Take 1 tablet by mouth every evening lisinopril 10 mg tablet 10 mg PO DAILY Patient Comments: Take 1 tablet by mouth once a day melatonin 10 mg tablet 10 mg PO DAILY Patient Comments: Take 1 tablet by mouth every night at bedtime Referrals Follow up/Referrals: Provider,Referral, [Primary Care Provider] - See instructions Instructions Patient Instructions: DI for Acute Abdominal Pain Print Language Print Language: Mauritian Discharge ED Provider: Serena aPrker General Adult HPI General Chief complaint: Abdominal Pain Stated complaint: light headed,abdominal tenderness Time Seen by Provider: 05/02/24 20:10 History of Present Illness HPI narrative: Patient presents ambulatory with multiple complaints. She states that she is feeling weak that she is feeling that she has been doing drugs when asked which drugs she said heroin and I asked how she was using heroin she stated snorting . Patient states that she thinks she needs to go to [facility] because she has the above listed complaints. Patient denies chest pain fever chills hemoptysis hematochezia melena nausea vomiting diarrhea. Related Data Home Medications ?Medication ?Instructions ?Recorded ?Confirmed aripiprazole 10 mg tablet (Abilify) 10 mg PO DAILY 02/25/24 02/27/24 lisinopril 10 mg tablet 10 mg PO DAILY 02/25/24 02/27/24 melatonin 10 mg tablet 10 mg PO DAILY 02/25/24 02/27/24 Previous Rx's ?Medication ?Instructions ?Recorded ondansetron 4 mg disintegrating 4 mg PO Q8H PRN Nausea #12 tabs 05/01/24 tablet Allergies Allergy/AdvReac Type Severity Reaction Status Date / Time No Known Allergies Allergy Verified 01/24/24 18:55 [facility] Disclaimer: The information contained in this section may have been updated after the patient was seen, as this information can be updated by other users. Medical History Hx of drug overdose Anxiety Hypertension Surgical History H/O LEEP Social History Smoking Status: Unknown if ever smoked alcohol intake: never current occupational status: other Travel in the last 8 weeks: None ROS Obtained: Yes Systems reviewed as appropriate & no additional complaints except as documented Physical Exam General General appearance: alert and in no apparent distress Head Head exam: atraumatic and normal inspection Eye Eye exam: Present normal appearance, PERRL and EOMI ENT ENT exam: Present normal exam, normal oropharynx and mucous membranes moist Neck Neck exam: Present normal inspection and full ROM Chest Chest inspection: Present normal inspection and symmetric chest wall rise Respiratory Respiratory exam: Present normal lung sounds bilaterally Cardiovascular Cardiovascular exam: Present regular rate, normal rhythm and normal heart sounds Abdominal Exam Abdominal exam: Present soft (Obese), rigidity and normal bowel sounds; Absent tenderness, guarding or rebound Extremities Exam Extremities exam: Present normal inspection and full ROM Back Exam Back exam: Present normal inspection and full ROM Neurological Exam Neurological exam: Present alert, oriented X3 and CN II-XII intact Psychiatric Psychiatric exam: Present normal mood and flat affect Skin Skin exam: Present warm, dry and normal color Lymphatic Lymphatic Findings: no adenopathy Medical Decision Making Medical Records Medical records reviewed: Yes I reviewed the patient's medical records. Karel Inquiry Pt receiving controlled substance: No Vital Signs: 05/02/24 20:08 Temperature 97.9 F Temperature Source Oral Pulse Rate [Right Brachial] 89 Respiratory Rate 18 Blood Pressure [Right Arm] 106/63 L Blood Pressure Mean [Right Arm] 77 02 Sat by Pulse Oximetry 96 Oxygen Delivery Method Room Air Lab Data Lab results reviewed: Yes I reviewed the patient's lab results. Orders (Tests/Meds): ED MEDICATIONS Generic Name Dose Route Start Last Admin Trade Name Freq PRN Reason Stop Dose Admin Lactated Ringer's 1,000 mls @ 999 mls/hr 05/02/24 20:13 Lactated Ringer's 1000 Ml Bag IV 05/02/24 21:13 .[id number] ONE Discontinued Medications Generic Name Dose Route Start Last Admin Trade Name Freq PRN Reason Stop Dose Admin Acetaminophen 1,000 mg 05/02/24 20:13 Acetaminophen 1,000mg/100ml Vial IV 05/02/24 20:14 ONCE ONE ORDERS Category Date Time Status CBC w/Auto Diff [Complete Blood Count Auto Diff] Stat Lab 05/02/24 20:14 Ordered CMP [Comprehensive Metabolic Panel] Stat Lab 05/02/24 20:14 Ordered UA [Urinalysis and Microscopic] Stat Lab 05/02/24 20:14 Ordered UDS [Drug Screen,Urine] Stat Lab 05/02/24 20:14 Ordered Urine , HCG Qual. Stat Lab 05/02/24 20:14 Ordered Medical Decision Narrative: In summary patient is a 38-year-old female who presents to the emergency department for evaluation of multiple complaints. Patient is hemodynamically stable upon arrival, afebrile. Physical exam is unremarkable and nonfocal including normal breath sounds normal heart sounds no abdominal pain with palpation Kaley Coma Score 15 and she is awake alert and oriented. Patient appears to have capacity for decision-making.. Differential diagnosis includes confabulation versus secondary gain versus versus dehydration versus drug abuse etc. Initial workup was ordered however when patient was approached for laboratory and IV insertion she left AGAINST MEDICAL ADVICE. Critical Care Critical Care Time Critical Care Time: No
[2024-05-02 20:26] VITALS: BP 106/63; PULSE 89; RESP 18; TEMP 36.6; O2SAT 96
== END 2024-05-02 20:28 | disposition left against medical advice (07) ==
PROVIDERS: Emergency Provider Emergency Medicine
DX: R10.819 Abdominal tenderness, unspecified site (principal); R53.1 Weakness
CPT/HCPCS: 99283

== ENCOUNTER 2024-06-25 19:32 | Emergency (ER) | payer MEDICAID, SELFPAY ==
[2024-06-25 20:00] VITALS: BP 134/87; PULSE 88; RESP 18; TEMP 36.6; O2SAT 98; BMI 36.2
--- NOTE | 2024-06-25 20:20 | XR_ITS ---
PROCEDURE INFORMATION: Exam: XR Right Tibia and Fibula Exam date and time: 06/25/2024 8:16 PM Age: 38 years old Clinical indication: Pain; Lower leg; Right; Additional info: Distal pain hardware TECHNIQUE: Imaging protocol: Radiologic exam of the right tibia and fibula. Views: 2 views. COMPARISON: CR XR ANKLE RT MIN 3V 05/18/2024 6:14 PM FINDINGS: Bones/joints: Postsurgical changes of the right distal fibula and tibia with plate and screw fixation of healed fractures. Soft tissues: Normal. IMPRESSION: Postsurgical changes of the right distal fibula and tibia with plate and screw fixation of healed fractures.
[2024-06-25] MEDS: hydrOXYzine pamoate 25MG CAPSULE 50 MG PO (20:36)
[2024-06-25] MEDS: IBUPROFEN 600 MG TABLET PO (20:36)
[2024-06-25] MEDS: ACETAMINOPHEN 500MG TAB 1000 MG PO (20:36)
--- NOTE | 2024-06-25 20:42 | ED_ITS ---
Discharge Plan Disposition Patient Disposition: Home, Self-Care Chief Complaint: PAIN Prescriptions Prescriptions: No Action ondansetron 4 mg Tablet,Disintegrating 4 mg PO Q8H PRN (Reason: Nausea) Qty: 12 0RF haloperidol 5 mg tablet 5 mg PO DAILY olanzapine 5 mg tablet 5 mg PO TID meloxicam 7.5 mg tablet 7.5 mg PO BID pantoprazole 40 mg tablet,delayed release (DR/EC) 40 mg PO DAILY fluoxetine 10 mg capsule 10 mg PO DAILY loratadine [Allergy Relief (loratadine)] 10 mg tablet 10 mg PO DAILY divalproex 250 mg tablet extended release 24 hr 250 mg PO BID Invega Sustenna 156 mg/mL syringe 156 mg IM MONTHLY aripiprazole [Abilify] 10 mg tablet 10 mg PO DAILY Patient Comments: Take 1 tablet by mouth every evening lisinopril 10 mg tablet 10 mg PO DAILY Patient Comments: Take 1 tablet by mouth once a day melatonin 10 mg tablet 10 mg PO DAILY Patient Comments: Take 1 tablet by mouth every night at bedtime Referrals Follow up/Referrals: Provider,Referral, [Primary Care Provider] - See instructions Rick Abdi DO [Staff Physician] - See instructions Activity Restrictions/Add. Instructions Additional Instructions/Restrictions: At this time is felt you are safe to be discharged home. As discussed you need to follow-up with Dr. Abdi for your chronic leg pain. Please call and schedule appointment as soon as you are able. Clinical Impressions Clinical Impression: Leg pain Print Language Print Language: Upper Sorbian Discharge ED Provider: Elmo Lauren General Adult HPI General Chief complaint: PAIN Stated complaint: Right leg pain Time Seen by Provider: 06/25/24 20:01 Mode of Arrival: Ambulatory Source of Information: Patient Limitations: No Limitations Description of Symptoms (Recalled from ER Triage Doc. by RN): pt is complaing of right leg pain without injury History of Present Illness HPI narrative: Patient is a 38-year-old female past medical history of schizophrenia, chronic r ight lower extremity pain who is yet to follow-up with orthopedics who presents emergency department for repeat evaluation of extremity pain. She denies any distinct trauma however stating that her pain is worse than normal where her ride is and is concerned about her hardware. No other acute complaints at this time. Able to bear weight. Related Data Home Medications ?Medication ?Instructions ?Recorded ?Confirmed aripiprazole 10 mg tablet (Abilify) 10 mg PO DAILY 02/25/24 05/18/24 lisinopril 10 mg tablet 10 mg PO DAILY 02/25/24 05/18/24 melatonin 10 mg tablet 10 mg PO DAILY 02/25/24 05/18/24 divalproex 250 mg tablet,extended 250 mg PO BID 05/18/24 05/18/24 release 24 hr fluoxetine 10 mg capsule 10 mg PO DAILY 05/18/24 05/18/24 haloperidol 5 mg tablet 5 mg PO DAILY 05/18/24 05/18/24 loratadine 10 mg tablet (Allergy 10 mg PO DAILY 05/18/24 05/18/24 Relief (loratadine)) meloxicam 7.5 mg tablet 7.5 mg PO BID 05/18/24 05/18/24 olanzapine 5 mg tablet 5 mg PO TID 05/18/24 05/18/24 paliperidone palmitate 156 mg/mL 156 mg IM MONTHLY 05/18/24 05/18/24 intramuscular syringe (Invega Sustenna) pantoprazole 40 mg tablet,delayed 40 mg PO DAILY 05/18/24 05/18/24 release Previous Rx's ?Medication ?Instructions ?Recorded ondansetron 4 mg disintegrating 4 mg PO Q8H PRN Nausea #12 tabs 05/01/24 tablet Allergies Allergy/AdvReac Type Severity Reaction Status Date / Time No Known Allergies Allergy Verified 06/09/24 18:29 [facility] Disclaimer: The information contained in this section may have been updated after the patient was seen, as this information can be updated by other users. Medical History Hx of drug overdose Anxiety Hypertension Surgical History H/O LEEP Family History (Updated 05/18/24 @ 16:56 by Willa Dangelo RN) Other Unknown family medical history Social History (Updated 05/18/24 @ 16:56 by Willa Dangelo RN) Smoking Status: Current every day smoker alcohol intake: current current occupational status: disabled and other Travel in the last 8 weeks: None ROS Obtained: Yes Systems reviewed as appropriate & no additional complaints except as documented Physical Exam General General appearance: alert and in no apparent distress Head Head exam: atraumatic and normocephalic Eye Eye exam: Present PERRL and EOMI ENT ENT exam: Present mucous membranes moist Neck Neck exam: Present normal inspection Chest Chest inspection: Present normal inspection and symmetric chest wall rise Respiratory Respiratory exam: Absent respiratory distress Cardiovascular Cardiovascular exam: Present regular rate and normal rhythm Abdominal Exam Abdominal exam: Present soft; Absent tenderness Extremities Exam Extremities exam: Present other (Well-healed scar right lateral distal leg, no overlying erythema, mild tenderness, palpable dorsal pedal pulse.) Neurological Exam Neurological exam: Present alert Psychiatric Psychiatric exam: Present normal affect Skin Skin exam: Present warm and dry Medical Decision Making Karel Inquiry Pt receiving controlled substance: No Vital Signs: 06/25/24 20:00 Temperature 97.8 F Temperature Source Oral Pulse Rate [Right] 88 Respiratory Rate 18 Blood Pressure [Right Arm] 134/87 Blood Pressure Mean [Right Arm] 102 02 Sat by Pulse Oximetry 98 Oxygen Delivery Method Room Air Orders (Tests/Meds): ED MEDICATIONS Discontinued Medications Generic Name Dose Route Start Last Admin Trade Name Jrq PRN Reason Stop Dose Admin Acetaminophen 1,000 mg 06/25/24 20:20 06/25/24 20:36 Acetaminophen 500mg Tab PO 06/25/24 20:21 1,000 mg ONCE ONE Administration Hydroxyzine Pamoate 50 mg 06/25/24 20:20 06/25/24 20:36 Hydroxyzine Pamoate 25mg Capsule PO 06/25/24 20:21 50 mg ONCE ONE Administration Ibuprofen 600 mg 06/25/24 20:20 06/25/24 20:36 Ibuprofen 600 Mg Tablet PO 06/25/24 20:21 600 mg ONCE ONE Administration ORDERS Category Date Time Status Fibula/tibia XR right 2 views [XR tibia fibula RT 2V] Exams 06/25/24 20:20 Taken Stat Medical Decision Narrative: In summary patient is a 38-year-old female past medical history described above who presents to the emergency department for evaluation of right lower extremity pain. Patient is hemodynamically stable upon arrival. Plain film will be obtained. Initial inventions include Tylenol, ibuprofen, hydroxyzine given that patient is anxious at baseline and is requesting anxiolysis. Plain film informally interpreted by me, no acute displaced fracture, appropriate seating of the hardware on my informal interpretation. Upon repeat evaluation patient was amatory is appropriate for outpatient management at this time. Critical Care Critical Care Time Critical Care Time: No
[2024-06-25 20:48] VITALS: BP 133/83; PULSE 87; RESP 18; TEMP 36.8; O2SAT 95
== END 2024-06-25 20:53 | disposition home or self-care (01) ==
PROVIDERS: Emergency Provider Emergency Medicine
DX: M79.604 Pain in right leg (principal); F20.9 Schizophrenia, unspecified; F41.1 Generalized anxiety disorder; I10 Essential (primary) hypertension
CPT/HCPCS: 73590; 99283

== ENCOUNTER 2024-10-02 23:50 | Emergency (ER) | payer MEDICAID, SELFPAY ==
[2024-10-03 00:03] VITALS: BP 123/76; PULSE 86; RESP 20; TEMP 36.8; O2SAT 94; BMI 33.3
--- NOTE | 2024-10-03 00:20 | HMH.EDGENADL ---
Discharge Plan Disposition Patient Disposition: Home, Self-Care Condition: Good Prescriptions Prescriptions: No Action ondansetron 4 mg Tablet,Disintegrating 4 mg PO Q8H PRN (Reason: Nausea) Qty: 12 0RF haloperidol 5 mg tablet 5 mg PO DAILY olanzapine 5 mg tablet 5 mg PO TID meloxicam 7.5 mg tablet 7.5 mg PO BID pantoprazole 40 mg tablet,delayed release (DR/EC) 40 mg PO DAILY fluoxetine 10 mg capsule 10 mg PO DAILY loratadine [Allergy Relief (loratadine)] 10 mg tablet 10 mg PO DAILY divalproex 250 mg tablet extended release 24 hr 250 mg PO BID Invega Sustenna 156 mg/mL syringe 156 mg IM MONTHLY aripiprazole [Abilify] 10 mg tablet 10 mg PO DAILY Patient Comments: Take 1 tablet by mouth every evening lisinopril 10 mg tablet 10 mg PO DAILY Patient Comments: Take 1 tablet by mouth once a day melatonin 10 mg tablet 10 mg PO DAILY Patient Comments: Take 1 tablet by mouth every night at bedtime Referrals Follow up/Referrals: Carina Bryson APRN [Nurse Practitioner] - See instructions (Complex psych history, recent evaluation and treatment at [facility].) Provider,Referral, [Primary Care Provider] - See instructions Activity Restrictions/Add. Instructions Additional Instructions/Restrictions: You were evaluated in the ER and are appropriate for discharge at this time. Continue taking your home medications as directed. Please follow-up with your primary care doctor and [facility] to discuss your medications. You have also been referred to behavioral health for further evaluation and management within our system. Drink plenty of water. Return to the ER with new, worsening, or otherwise concerning symptoms. Clinical Impressions Clinical Impression: Encounter for medical assessment Print Language Print Language: Uzbek Discharge ED Provider: Serena Parker Adult HPI General Chief complaint: PAIN Stated complaint: legs swollen Time Seen by Provider: 10/03/24 00:15 Mode of Arrival: EMS Source of Information: Patient Limitations: No Limitations Description of Symptoms (Recalled from ER Triage Doc. by RN): Pt states she started unknown new medication 3 days ago and now having restless leg and muscle spasms No evidence of these symptoms at this time. Pt states I need to go somewhere to have my medications regulated History of Present Illness HPI narrative: 39-year-old female with extensive psych history as well as history of substance abuse presents to the ER for sensation of restless legs and arms. Patient reports she feels like she is going to have muscle spasms all the time but when she looks at her arms and legs they are not actually spasming. She states she has been feeling achy but not having any focal pain. She reports she was treated at [facility] recently and over the last month has been on the same medications. She states she has been taking her medications more consistently and feels like her symptoms have developed in the last few days. She denies chest pain, difficulty breathing, headache, dizziness, numbness, tingling, or weakness. She is independently ambulatory in the ER. She has no suicidal or homicidal ideation, she is not having any hallucinations. She requested to be admitted for medication adjustments. She denies fevers, chills, chest pain, difficulty breathing, abdominal pain, vomiting, diarrhea, dysuria, swelling, injuries, abnormal movements, or other associated symptoms. Related Data Home Medications ?Medication ?Instructions ?Recorded ?Confirmed aripiprazole 10 mg tablet (Abilify) 10 mg PO DAILY 02/25/24 05/18/24 lisinopril 10 mg tablet 10 mg PO DAILY 02/25/24 05/18/24 melatonin 10 mg tablet 10 mg PO DAILY 02/25/24 05/18/24 divalproex 250 mg tablet,extended 250 mg PO BID 05/18/24 05/18/24 release 24 hr fluoxetine 10 mg capsule 10 mg PO DAILY 05/18/24 05/18/24 haloperidol 5 mg tablet 5 mg PO DAILY 05/18/24 05/18/24 loratadine 10 mg tablet (Allergy 10 mg PO DAILY 05/18/24 05/18/24 Relief (loratadine)) meloxicam 7.5 mg tablet 7.5 mg PO BID 05/18/24 05/18/24 olanzapine 5 mg tablet 5 mg PO TID 05/18/24 05/18/24 paliperidone palmitate 156 mg/mL 156 mg IM MONTHLY 05/18/24 05/18/24 intramuscular syringe (Invega Sustenna) pantoprazole 40 mg tablet,delayed 40 mg PO DAILY 05/18/24 05/18/24 release Previous Rx's ?Medication ?Instructions ?Recorded ondansetron 4 mg disintegrating 4 mg PO Q8H PRN Nausea #12 tabs 05/01/24 tablet Allergies Allergy/AdvReac Type Severity Reaction Status Date / Time No Known Allergies Allergy Verified 06/09/24 18:29 [facility] Disclaimer: The information contained in this section may have been updated after the patient was seen, as this information can be updated by other users. Medical History Hx of drug overdose Anxiety Hypertension Surgical History H/O LEEP Family History (Updated 05/18/24 @ 16:56 by Willa Dangelo RN) Other Unknown family medical history Social History (Updated 05/18/24 @ 16:56 by Willa Dangelo RN) Smoking Status: Never smoker alcohol intake: current current occupational status: disabled and other Travel in the last 8 weeks: None Have you lived/traveled outside [place] in past 30 days?: No Contact w/someone who lives/traveled outside [place] past 30 days?: No Exposure to someone with infectious disease in past 14 days?: No Do you have a fever (greater than 100.4 F or 38 C)?: No Have you tested positive for COVID-19: No Exposed to someone with COVID-19 in past 14 days?: No Do you have a sore throat?: No Do you have a cough?: No Do you have any weakness?: No Do you have any diarrhea?: No Are you experiencing any unusual bleeding?: No Do you have any muscle aches/pain?: No Do you have any abdominal pain?: No Are you experiencing loss of taste or smell?: No Other Medical History Have you received the Flu Vaccine for this season: Yes Have you received the Pneumonia Vaccine: No ROS Obtained: Yes Systems reviewed as appropriate & no additional complaints except as documented Per HPI Physical Exam General General appearance: alert and in no apparent distress Head Head exam: atraumatic and normocephalic Eye Eye exam: Present PERRL and EOMI ENT ENT exam: Present normal oropharynx and mucous membranes moist Neck Neck exam: Present normal inspection and full ROM; Absent lymphadenopathy Chest Chest inspection: Present symmetric chest wall rise; Absent tenderness Respiratory Respiratory exam: Present normal lung sounds bilaterally; Absent respiratory distress, wheezes or stridor Cardiovascular Cardiovascular exam: Present regular rate and normal rhythm Abdominal Exam Abdominal exam: Present soft; Absent distention or tenderness Extremities Exam Extremities exam: Present full ROM; Absent tenderness, edema, joint swelling or calf tenderness Back Exam Back exam: Present full ROM; Absent tenderness Neurological Exam Neurological exam: Present alert, oriented X3, CN II-XII intact, normal gait and other (No clonus or myoclonus, no tremors, no dystonic movements); Absent motor sensory deficit Psychiatric Psychiatric exam: Present normal affect and normal mood Skin Skin exam: Present warm and dry Medical Decision Making Medical Records Medical records reviewed: Yes I reviewed the patient's medical records. Screening: Per USPSTF and CDC recommendations, given the prevalence of disease in our region, it is our hospital?s policy to screen for HIV and viral Hepatitis for all patients aged 18 and over and those with ongoing risk factors. Karel Inquiry Pt receiving controlled substance: No Vital Signs: 10/03/24 00:03 Temperature 98.2 F Temperature Source Oral Pulse Rate [Right Brachial] 86 Respiratory Rate 20 Blood Pressure [Right Arm] 123/76 Blood Pressure Mean [Right Arm] 91 Blood Pressure Source [Right Arm] Automatic Cuff Blood Pressure Position [Right Arm] Sitting 02 Sat by Pulse Oximetry 94 L Oxygen Delivery Method Room Air Orders (Tests/Meds): ED MEDICATIONS Discontinued Medications Generic Name Dose Route Start Last Admin Trade Name Freq PRN Reason Stop Dose Admin Ketorolac Tromethamine 15 mg 10/03/24 00:25 12 00:27 Ketorolac 30mg/Ml Vial IM 10/03/24 00:26 15 mg ONCE ONE Administration ORDERS Category Date Time Status HIV (1&2) Antibody Rapid Stat Lab 10/03/24 00:07 Ordered Hep C Ab with Reflex to RNA Stat Lab 10/03/24 00:07 Ordered Medical Decision Narrative: In summary, this 39-year-old female with comorbidities described in the HPI presents to the emergency department today with concerns of restless arms and legs. On initial evaluation patient is hemodynamically stable, afebrile, neuroexam is benign without findings of tremor, clonus, myoclonus, dystonic movements, patient also has normal MSK exam, she is independently ambulatory, mucous membranes moist, mentating well, no suicidal or homicidal ideation. Differential diagnosis includes but is not limited to restless legs, I considered medication side effect or drug drug interaction but do not appreciate any abnormalities on exam, she has no tenderness, no concerning signs or symptoms on evaluation or discussion with the patient.. I do not believe at this time patient requires any labs or imaging. She is eating and drinking in the ER and I believe appropriate for discharge. I discussed monitoring her symptoms as well as talking to her primary care doctor and prescribing doctor at [facility] about her concerns. I have lower concern that this is a medication side effect given the duration of use of her medications and her reported development of symptoms, and based on history and exam I do not believe she is having any dangerous pathological process at this time. I also referred the patient to behavioral health for close follow-up within our system. Patient was given instructions on symptomatic management, follow up instructions, and return precautions for the emergency department. Patient indicated understanding and was discharged in stable condition. Critical Care Critical Care Time Critical Care Time: No
[2024-10-03] MEDS: KETOROLAC 30MG/ML VIAL 15 MG IM (00:27)
--- NOTE | 2024-10-03 00:43 | PC.NURSE ---
someone on the way to transport patient back to facility
--- NOTE | 2024-10-03 00:45 | PC.NURSE ---
Pt discharged to employee [facility] who is transporting client back to [facility] Pt ambulatory at time of discharge. Skin pink warm and dry Resp full and easy Speech clear and appropriate. Gait steady
[2024-10-03 00:46] VITALS: BP 123/74; PULSE 80; RESP 20; TEMP 36.8; O2SAT 98
== END 2024-10-03 00:46 | disposition home or self-care (01) ==
PROVIDERS: Emergency Provider Emergency Medicine
DX: Z00.8 Encounter for other general examination (principal); R29.898 Other symptoms and signs involving the musculoskeletal system
CPT/HCPCS: 96372; 99283; J1885

== ENCOUNTER 2024-10-25 19:58 | Emergency (ER) | payer MEDICAID, SELFPAY ==
[2024-10-25 19:58] VITALS: BP 142/83; PULSE 83; RESP 18; TEMP 36.8; O2SAT 97; BMI 35.6
--- NOTE | 2024-10-25 20:37 | ED_ITS ---
<Statement entered by Eli Meek DO - 10/26/24 00:17> I was consulted by the BRIA, and we discussed the complexity of the problems being addressed. I approved the treatment and management plan for this patient's care in the emergency department, thus performing a substantive portion of the medical decision making. Eli Meek DO Discharge Plan Disposition Patient Disposition: Home, Self-Care Condition: Good Prescriptions Prescriptions: New lidocaine 5 % adhesive patch,medicated 1 patch topical DAILY Qty: 30 0RF Rx Instructions: leave on most painful area for up to 12 hrs mveqxxcwighktls-pwtejwdva-TM [Bromfed DM] 2-30-10 mg/5 mL syrup 5 ml PO Q4H PRN (Reason: sinus symptoms) Qty: 118 0RF No Action ondansetron 4 mg Tablet,Disintegrating 4 mg PO Q8H PRN (Reason: Nausea) Qty: 12 0RF haloperidol 5 mg tablet 5 mg PO DAILY olanzapine 5 mg tablet 5 mg PO TID meloxicam 7.5 mg tablet 7.5 mg PO BID pantoprazole 40 mg tablet,delayed release (DR/EC) 40 mg PO DAILY fluoxetine 10 mg capsule 10 mg PO DAILY loratadine [Allergy Relief (loratadine)] 10 mg tablet 10 mg PO DAILY divalproex 250 mg tablet extended release 24 hr 250 mg PO BID Invega Sustenna 156 mg/mL syringe 156 mg IM MONTHLY aripiprazole [Abilify] 10 mg tablet 10 mg PO DAILY Patient Comments: Take 1 tablet by mouth every evening lisinopril 10 mg tablet 10 mg PO DAILY Patient Comments: Take 1 tablet by mouth once a day melatonin 10 mg tablet 10 mg PO DAILY Patient Comments: Take 1 tablet by mouth every night at bedtime Referrals Follow up/Referrals: Provider,Referral, MD [Primary Care Provider] - See instructions Activity Restrictions/Add. Instructions Additional Instructions/Restrictions: I have sent Lidoderm patch into your pharmacy to help with your chest wall pain. Continue taking Tylenol alternating with Motrin for symptoms. I have sent a medication into help with your cough. Follow-up with your PCP if you show no improvement or worsening signs or symptoms or return to the ER as needed. Clinical Impressions Clinical Impression: Acute chest wall pain Cough Qualifiers: Cough type: subacute Qualified Code(s): R05.2 - Subacute cough Instructions Patient Instructions: Cough Print Language Print Language: [place] Discharge ED Provider: Eli Meek General Adult HPI <RAGINI Shaw - Last Filed: 10/25/24 22:28> General Chief complaint: Upper Respiratory Infection Stated complaint: cough Time Seen by Provider: 10/25/24 20:37 Mode of Arrival: EMS Source of Information: Patient Limitations: No Limitations Description of Symptoms (Recalled from ER Triage Doc. by RN): pt reports she has had a cough for 3 days and now has left sided rib pain History of Present Illness HPI narrative: Patient presents for evaluation of left-sided rib pain. Patient states she has been coughing for 3 days and it hurts every time she coughs. She denies any fever chills hemoptysis hematochezia melena nausea vomit diarrhea. Patient has she could have his pain shot as soon as greeted her. Related Data Home Medications ?Medication ?Instructions ?Recorded ?Confirmed aripiprazole 10 mg tablet (Abilify) 10 mg PO DAILY 02/25/24 05/18/24 lisinopril 10 mg tablet 10 mg PO DAILY 02/25/24 05/18/24 melatonin 10 mg tablet 10 mg PO DAILY 02/25/24 05/18/24 divalproex 250 mg tablet,extended 250 mg PO BID 05/18/24 05/18/24 release 24 hr fluoxetine 10 mg capsule 10 mg PO DAILY 05/18/24 05/18/24 haloperidol 5 mg tablet 5 mg PO DAILY 05/18/24 05/18/24 loratadine 10 mg tablet (Allergy 10 mg PO DAILY 05/18/24 05/18/24 Relief (loratadine)) meloxicam 7.5 mg tablet 7.5 mg PO BID 05/18/24 05/18/24 olanzapine 5 mg tablet 5 mg PO TID 05/18/24 05/18/24 paliperidone palmitate 156 mg/mL 156 mg IM MONTHLY 05/18/24 05/18/24 intramuscular syringe (Invega Sustenna) pantoprazole 40 mg tablet,delayed 40 mg PO DAILY 05/18/24 05/18/24 release Previous Rx's ?Medication ?Instructions ?Recorded ondansetron 4 mg disintegrating 4 mg PO Q8H PRN Nausea #12 tabs 05/01/24 tablet hxxxamdyedugpzs-ddfchzrftvbomtr-EA 5 ml PO Q4H PRN sinus symptoms 10/25/24 2 mg-30 mg-10 mg/5 mL oral syrup #118 mL (Bromfed DM) lidocaine 5 % topical patch 1 patch topical DAILY #30 ea 10/25/24 Allergies Allergy/AdvReac Type Severity Reaction Status Date / Time No Known Allergies Allergy Verified 06/09/24 18:29 PFSH <RAGINI Shaw - Last Filed: 10/25/24 22:28> PFS Disclaimer: The information contained in this section may have been updated after the patient was seen, as this information can be updated by other users. Medical History Hx of drug overdose Anxiety Hypertension Surgical History H/O LEEP Family History (Updated 05/18/24 @ 16:56 by Willa Dangelo RN) Other Unknown family medical history Social History (Updated 05/18/24 @ 16:56 by Willa Dangelo RN) Smoking Status: Current every day smoker alcohol intake: current current occupational status: disabled and other Travel in the last 8 weeks: None Have you lived/traveled outside [place] in past 30 days?: No Contact w/someone who lives/traveled outside [place] past 30 days?: No Exposure to someone with infectious disease in past 14 days?: No Do you have a fever (greater than 100.4 F or 38 C)?: No Have you tested positive for COVID-19: No Exposed to someone with COVID-19 in past 14 days?: No Do you have a sore throat?: No Do you have a cough?: Yes Do you have any weakness?: No Do you have any diarrhea?: No Are you experiencing any unusual bleeding?: No Do you have any muscle aches/pain?: No Do you have any abdominal pain?: No Are you experiencing loss of taste or smell?: No Other Medical History Have you received the Flu Vaccine for this season: Yes Have you received the Pneumonia Vaccine: No <RAGINI Shaw - Last Filed: 10/25/24 22:28> ROS Obtained: Yes Systems reviewed as appropriate & no additional complaints except as documented Physical Exam <RAGINI Shaw - Last Filed: 10/25/24 22:28> General General appearance: alert and in no apparent distress Respiratory Respiratory exam: Present normal lung sounds bilaterally Cardiovascular Cardiovascular exam: Present regular rate Neurological Exam Neurological exam: Present alert and oriented X3 Medical Decision Making <RAGINI Shaw - Last Filed: 10/25/24 22:28> Medical Records Medical records reviewed: Yes I reviewed the patient's medical records. Screening: Per USPSTF and CDC recommendations, given the prevalence of disease in our region, it is our hospital?s policy to screen for HIV and viral Hepatitis for all patients aged 18 and over and those with ongoing risk factors. Karel Inquiry Pt receiving controlled substance: No Vital Signs: 10/25/24 19:58 10/25/24 22:49 Temperature 98.2 F 98.2 F Temperature Source Oral Pulse Rate 88 Pulse Rate [Right] 83 Respiratory Rate 18 20 Blood Pressure 138/94 H Blood Pressure [Right Arm] 142/83 H Blood Pressure Mean [Right Arm] 102 02 Sat by Pulse Oximetry 97 Oxygen Delivery Method Room Air Room Air Lab Data Lab results reviewed: Yes I reviewed the patient's lab results. Lab Results 10/25/24 21:28: SARS-CoV-2 (PCR) Not detected, Influenza A Untype (PCR) Not detected, Influenza Type B (PCR) Not detected Orders (Tests/Meds): ED MEDICATIONS Discontinued Medications Generic Name Dose Route Start Last Admin Trade Name Freq PRN Reason Stop Dose Admin Acetaminophen 1,000 mg 10/25/24 20:48 10/25/24 21:09 Acetaminophen 500mg Tab PO 10/25/24 20:49 1,000 mg ONCE ONE Administration Ketorolac Tromethamine 30 mg 10/25/24 20:48 10/25/24 21:09 Ketorolac 30mg/Ml Vial IM 10/25/24 20:49 30 mg ONCE ONE Administration ORDERS Category Date Time Status Chest XR 2 view (NOT portable) [XR chest 2V] Stat Exams 10/25/24 20:48 Completed Rapid PCR Covid and Flu A/B Stat Lab 10/25/24 21:28 Completed Medical Decision Narrative: In summary patient is a 39-year-old female who presents to the emergency department for evaluation of chest wall pain with coughing. Patient is hemodynamically stable with a blood pressure one 41-year-old were 83 pulse 83 respiratory rate 18 satting at 97% on room air upon arrival, afebrile. Physical exam is remarkable for a well-nourished well-developed 39-year-old female with no acute distress. Breath sounds clear and equal bilaterally to the bases with adventitious sound. Patient has good excursion. I feel no palpable crepitus I feel no bony deformities I see no evidence of contusions abrasions. Patient reports tenderness to palpation as I palpate the left lateral chest wall when she takes a deep breath.. Differential diagnosis includes costochondritis versus pleurisy versus pneumonia etc. Initial workup will be conducted with plain film chest x-ray respiratory panel twelve-lead EKG. Initial interventions include Toradol Tylenol. Initial workup reviewed by me shows that her Rester panels are negative twelve-lead EKG shows no evidence of ACS and my informed interpretation of plain chest chest x-ray shows no acute processes. Upon repeat evaluation patient reports that Tylenol and Toradol did not help her pain. Given this we have essentially ruled out any serious or life-threatening condition and recommend that she continue taking Tylenol Motrin. I have sent Bromfed into her pharmacy to help with her cough. Patient to follow-up with PCP for no improvement or worsening signs or symptoms as needed. <Eli Meek, DO - Last Filed: 10/26/24 00:19> Vital Signs: 10/25/24 19:58 10/25/24 22:49 Temperature 98.2 F 98.2 F Temperature Source Oral Pulse Rate 88 Pulse Rate [Right] 83 Respiratory Rate 18 20 Blood Pressure 138/94 H Blood Pressure [Right Arm] 142/83 H Blood Pressure Mean [Right Arm] 102 02 Sat by Pulse Oximetry 97 Oxygen Delivery Method Room Air Room Air Lab Data Lab Results 10/25/24 21:28: SARS-CoV-2 (PCR) Not detected, Influenza A Untype (PCR) Not detected, Influenza Type B (PCR) Not detected Orders (Tests/Meds): ED MEDICATIONS Discontinued Medications Generic Name Dose Route Start Last Admin Trade Name Jrq PRN Reason Stop Dose Admin Acetaminophen 1,000 mg 10/25/24 20:48 10/25/24 21:09 Acetaminophen 500mg Tab PO 10/25/24 20:49 1,000 mg ONCE ONE Administration Ketorolac Tromethamine 30 mg 10/25/24 20:48 10/25/24 21:09 Ketorolac 30mg/Ml Vial IM 10/25/24 20:49 30 mg ONCE ONE Administration ORDERS Category Date Time Status Chest XR 2 view (NOT portable) [XR chest 2V] Stat Exams 10/25/24 20:48 Compl eted Rapid PCR Covid and Flu A/B Stat Lab 10/25/24 21:28 Completed ECG Data Tracing #1: I reviewed this ECG and interpreted as documented below: Normal sinus rhythm with a ventricular rate of 76 bpm. No acute STEMI. Normal axis and intervals. ECG initial impression date: 10/26/24 ECG initial impression time: 21:05 Critical Care <RAGINI Shaw - Last Filed: 10/25/24 22:28> Critical Care Time Critical Care Time: No
--- NOTE | 2024-10-25 20:48 | XR_ITS ---
PROCEDURE INFORMATION: Exam: XR Chest Exam date and time: 10/25/2024 9:26 PM Age: 39 years old Clinical indication: Pain; Chest pressure; Additional info: Left-sided chest pain TECHNIQUE: Imaging protocol: Radiologic exam of the chest. Views: 2 views. COMPARISON: CR XR CHEST PORTABLE 04/10/2024 2:24 PM FINDINGS: Lungs: There has developed mild right perihilar opacity concerning for focal infiltrate or atelectasis. Left lung appears clear. Pleural spaces: Unremarkable. No pleural effusion. No pneumothorax. Heart/Mediastinum: Unremarkable. No cardiomegaly. Bones/joints: Unremarkable. IMPRESSION: Suspected mild right perihilar infiltrate or atelectasis
--- NOTE | 2024-10-25 21:00 | ECG_ITS ---
APPROVED REPORT Exam: Resting ECG HR:76 bpm ECG Measurements Heart Rate 76 AXES NC 166 P 44 QRSd 89 QRS 68 QT 368 T 45 QTc 398 Conclusion SINUS RHYTHM NONSPECIFIC T-WAVE ABNORMALITY Electronically signed by : KELLE OSWALD, 10/26/2024 00:50:53
--- NOTE | 2024-10-25 21:07 | HMH.ITSTN ---
per NAV Talbot, pt does not need preg test ordered
[2024-10-25] MEDS: KETOROLAC 30MG/ML VIAL 30 MG IM (21:09)
[2024-10-25] MEDS: ACETAMINOPHEN 500MG TAB 1000 MG PO (21:09)
[2024-10-25 21:33] LABS: Coronavirus 19, PCR Not Detected (NotDetected); Influenza A, PCR Not Detected (NotDetected); Influenza B, PCR Not Detected (NotDetected)
[2024-10-25 22:49] VITALS: BP 138/94; PULSE 88; RESP 20; TEMP 36.8; O2SAT 99
== END 2024-10-25 22:50 | disposition home or self-care (01) ==
PROVIDERS: Physician Assistant; Emergency Provider Emergency Medicine
DX: R07.89 Other chest pain (principal); R07.81 Pleurodynia; R05.9 Cough, unspecified
CPT/HCPCS: 71046; 87636; 93005; 96372; 99284; J1885

== ENCOUNTER 2024-11-07 03:08 | Emergency (ER) | payer MEDICAID, SELFPAY ==
[2024-11-07 02:58] VITALS: BP 137/96; PULSE 78; RESP 20; TEMP 36.8; O2SAT 96; BMI 35.5
--- NOTE | 2024-11-07 03:02 | HMH.EDGENADL ---
Discharge Plan Disposition Patient Disposition: Home, Self-Care Condition: Good Prescriptions Prescriptions: No Action ondansetron 4 mg Tablet,Disintegrating 4 mg PO Q8H PRN (Reason: Nausea) Qty: 12 0RF haloperidol 5 mg tablet 5 mg PO DAILY olanzapine 5 mg tablet 5 mg PO TID meloxicam 7.5 mg tablet 7.5 mg PO BID pantoprazole 40 mg tablet,delayed release (DR/EC) 40 mg PO DAILY fluoxetine 10 mg capsule 10 mg PO DAILY loratadine [Allergy Relief (loratadine)] 10 mg tablet 10 mg PO DAILY divalproex 250 mg tablet extended release 24 hr 250 mg PO BID Invega Sustenna 156 mg/mL syringe 156 mg IM MONTHLY lidocaine 5 % adhesive patch,medicated 1 patch topical DAILY Qty: 30 0RF Rx Instructions: leave on most painful area for up to 12 hrs igbdrklrjkqryyt-oouyzsxpb-FT [Bromfed DM] 2-30-10 mg/5 mL syrup 5 ml PO Q4H PRN (Reason: sinus symptoms) Qty: 118 0RF aripiprazole [Abilify] 10 mg tablet 10 mg PO DAILY Patient Comments: Take 1 tablet by mouth every evening lisinopril 10 mg tablet 10 mg PO DAILY Patient Comments: Take 1 tablet by mouth once a day melatonin 10 mg tablet 10 mg PO DAILY Patient Comments: Take 1 tablet by mouth every night at bedtime Activity Restrictions/Add. Instructions Additional Instructions/Restrictions: You were evaluated in the ER and are appropriate for discharge at this time. Continue taking home medications as prescribed. Take Tylenol if needed for minor aches and pains. Do not exceed the recommended dose on the bottle. Drink plenty of water. Eat a balanced diet. Follow-up with your primary care doctor. Return to the ER with new, worsening, or otherwise concerning symptoms. Clinical Impressions Clinical Impression: Leg pain, Syncope, Arm pain Instructions Patient Instructions: DI for Syncope in Adults (Fainting), DI for Syncope in Children (Fainting) Print Language Print Language: Slovak Discharge ED Provider: Serena Parker Adult HPI General Chief complaint: Syncope Stated complaint: leg pain Time Seen by Provider: 11/07/24 03:10 Mode of Arrival: EMS Source of Information: Patient Limitations: No Limitations Description of Symptoms (Recalled from ER Triage Doc. by RN): Pt states she is having restless leg and arm pain Also states that she passed out prior to calling EMS History of Present Illness HPI narrative: 39-year-old female who typically resides at [facility] but is currently at [facility] due to facility problems at [facility] presents via EMS with concerns of restless legs and arms. Patient has presented with this complaint previously. Patient reports a few months ago she was seen at [facility] and they adjusted her medications and since that time she has chronic restless legs and arms. She states symptoms are not new, worse, or otherwise different from what they typically are. She reports having muscle spasms and contractions but none are evident on exam. Per EMS, since she is a [facility] resident currently residing at [facility], they unfortunately do not have all of her as needed orders so she has not been receiving as needed Tylenol. Patient is requesting Toradol. When asked about any other symptoms, patient denies headache, dizziness, numbness, tingling, weakness, chest pain, shortness of breath, nausea, vomiting, diarrhea, dysuria, or hematuria. She does report that she passed out sometime tonight very briefly. She is not able to provide any other information about this event and it was not witnessed by anyone she did not report this to EMS. She does not report any recent illness. Reportedly she is taking her regularly prescribed medications and has not missed doses of these. Related Data Home Medications ?Medication ?Instructions ?Recorded ?Confirmed aripiprazole 10 mg tablet (Abilify) 10 mg PO DAILY 02/25/24 05/18/24 lisinopril 10 mg tablet 10 mg PO DAILY 02/25/24 05/18/24 melatonin 10 mg tablet 10 mg PO DAILY 02/25/24 05/18/24 divalproex 250 mg tablet,extended 250 mg PO BID 05/18/24 05/18/24 release 24 hr fluoxetine 10 mg capsule 10 mg PO DAILY 05/18/24 05/18/24 haloperidol 5 mg tablet 5 mg PO DAILY 05/18/24 05/18/24 loratadine 10 mg tablet (Allergy 10 mg PO DAILY 05/18/24 05/18/24 Relief (loratadine)) meloxicam 7.5 mg tablet 7.5 mg PO BID 05/18/24 05/18/24 olanzapine 5 mg tablet 5 mg PO TID 05/18/24 05/18/24 paliperidone palmitate 156 mg/mL 156 mg IM MONTHLY 05/18/24 05/18/24 intramuscular syringe (Invega Sustenna) pantoprazole 40 mg tablet,delayed 40 mg PO DAILY 05/18/24 05/18/24 release Previous Rx's ?Medication ?Instructions ?Recorded ondansetron 4 mg disintegrating 4 mg PO Q8H PRN Nausea #12 tabs 05/01/24 tablet sztcctnnkcaroxy-wtrpignpplsdnns-QG 5 ml PO Q4H PRN sinus symptoms 10/25/24 2 mg-30 mg-10 mg/5 mL oral syrup #118 mL (Bromfed DM) lidocaine 5 % topical patch 1 patch topical DAILY #30 ea 10/25/24 Allergies Allergy/AdvReac Type Severity Reaction Status Date / Time No Known Allergies Allergy Verified 06/09/24 18:29 [facility] Disclaimer: The information contained in this section may have been updated after the patient was seen, as this information can be updated by other users. Medical History Hx of drug overdose Anxiety Hypertension Surgical History H/O LEEP Family History (Updated 05/18/24 @ 16:56 by Willa Dangelo RN) Other Unknown family medical history Social History (Updated 05/18/24 @ 16:56 by Willa Dangelo RN) Smoking Status: Current every day smoker alcohol intake: current current occupational status: disabled and other Travel in the last 8 weeks: None Other Medical History Have you received the Flu Vaccine for this season: Yes Have you received the Pneumonia Vaccine: No ROS Obtained: Yes Systems reviewed as appropriate & no additional complaints except as documented per HPI Physical Exam General General appearance: alert, in no apparent distress and obese Head Head exam: atraumatic and normocephalic Eye Eye exam: Present PERRL and EOMI ENT ENT exam: Present mucous membranes moist Neck Neck exam: Present normal inspection and full ROM Chest Chest inspection: Present symmetric chest wall rise Respiratory Respiratory exam: Present normal lung sounds bilaterally; Absent respiratory distress, wheezes or stridor Cardiovascular Cardiovascular exam: Present regular rate and normal rhythm Abdominal Exam Abdominal exam: Present soft; Absent distention or tenderness Extremities Exam Extremities exam: Present full ROM, normal capillary refill and other (No erythema, no traumatic findings); Absent tenderness, edema, joint swelling or calf tenderness Neurological Exam Neurological exam: Present alert and oriented X3; Absent motor sensory deficit Psychiatric Psychiatric exam: Present normal affect and normal mood; Absent homicidal ideation or suicidal ideation Skin Skin exam: Present warm and dry Medical Decision Making Medical Records Medical records reviewed: Yes I reviewed the patient's medical records. Screening: Per USPSTF and CDC recommendations, given the prevalence of disease in our region, it is our hospital?s policy to screen for HIV and viral Hepatitis for all patients aged 18 and over and those with ongoing risk factors. MR Comment: Patient is well-known to this ER. She was seen 16 times in 2023 for various complaints including often being seen for extremity pains. She never had acute pathology identified on those workups from my review of records. She had a Doppler study in April that was negative for DVT, she has had lower extremity x-rays as well that have been negative for acute injury. Karel Inquiry Pt receiving controlled substance: No Vital Signs: 11/07/24 02:58 11/07/24 04:16 Temperature 98.2 F Temperature Source Oral Pulse Rate 75 Pulse Rate [Right Brachial] 78 Respiratory Rate 20 20 Blood Pressure 126/90 Blood Pressure [Right Arm] 137/96 H Blood Pressure Mean [Right Arm] 109 02 Sat by Pulse Oximetry 96 97 Oxygen Delivery Method Room Air Room Air Lab Data Lab Results 11/07/24 03:27: WBC 8.1, RBC 5.25, Hgb 14.6, Hct 42.3, MCV 80.6 L, MCH 27.8, MCHC 34.5, RDW 13.0, Plt Count 299, MPV 8.7, Neut % (Auto) 61.6, Lymph % (Auto) 24.9, Wy[place] % (Auto) 7.9, Eos % (Auto) 4.9, Baso % (Auto) 0.5, Neut # (Auto) 5.0, Lymph # (Auto) 2.0, Wy[place] # (Auto) 0.6, Eos # (Auto) 0.4, Baso # (Auto) 0.0, Sodium 135 L, Potassium 3.7, Chloride 106, Carbon Dioxide 21 L, Anion Gap 11.7, BUN 16, Creatinine 0.90, Estimated Creat Clear 131, Estimated GFR 69, Est GFR ( Amer) 84, Glucose 98, Calcium 9.3, Total Bilirubin 0.6, AST 24, ALT 21, Alkaline Phosphatase 116, Troponin I < 0.01, Total Protein 7.1, Albumin 4.2, Globulin 2.9, Albumin/Globulin Ratio 1.4, Serum HCG, Qual Negative, HCV Ab GABE w/Rflx PCR Qn Reactive, HIV Ag/Ab Combo Qual Negative 11/07/24 03:27 11/07/24 03:27 Orders (Tests/Meds): ED MEDICATIONS Discontinued Medications Generic Name Dose Route Start Last Admin Trade Name Freq PRN Reason Stop Dose Admin Ketorolac Tromethamine 15 mg 11/07/24 03:00 11/07/24 03:08 Ketorolac 30mg/Ml Vial IV 11/07/24 03:01 15 mg ONCE ONE Administration ORDERS Category Date Time Status CXR --portable [XR chest portable] Stat Exams 11/07/24 03:15 Completed CBC w/Auto Diff [Complete Blood Count Auto Diff] Stat Lab 11/07/24 03:27 Completed CMP [Comprehensive Metabolic Panel] Stat Lab 11/07/24 03:27 Completed HCG Qualitative, Serum Stat Lab 11/07/24 03:27 Completed HCV RNA PCR, Quant Routine Lab 11/07/24 03:27 Received HIV Combo Routine Lab 11/07/24 03:27 Completed Hepatitis C Ab Qual. W/ RFX Routine Lab 11/07/24 03:27 Completed Trop I [Troponin I] Stat Lab 11/07/24 03:27 Completed Troponin I Q3H Lab 11/07/24 06:15 Ordered Troponin I Q3H Lab 11/07/24 09:15 Ordered ECG Request Stat Y 11/07/24 03:00 Ordered HEART Score History (anamnesis): Slightly suspicious ECG: Normal Age: <45 years Risk factors: 1-2 risk factors Troponin: </= normal limit HEART Score: 1 Medical Decision Narrative: In summary, this 39-year-old female well-known to this emergency department with a history of schizophrenia, anxiety, hypertension presents to the emergency department today with complaints of restless arms and legs initially. She then also reported she had an episode of syncope. On initial evaluation patient is hemodynamically stable, afebrile, GCS 15, no neurologic deficits, no traumatic findings on exam, extremities demonstrate full range of motion without swelling, tenderness, erythema, bruising, deformity, or any other abnormalities, cardiopulmonary exam benign, patient denies being suicidal or homicidal. Differential diagnosis includes but is not limited to medication side effect, electrolyte abnormality, I considered muscle spasm but do not appreciate evidence of this on exam, with patient syncope I considered the possibility of electrolyte abnormality, orthostatic hypotension, dehydration, arrhythmia or arrhythmogenic ECG abnormality, I had considered ACS and PE but patient has no chest pain or pressure, no difficulty breathing, she is PERC negative. Bilateral lower and upper extremity pain goes strongly against DVT though this was initially considered. Based on these concerns, I ordered EKG, troponin, basic serum labs. Patient is requesting Toradol which was administered for pain control though she appears very comfortable on exam and does not have findings of injury. ECG personally interpreted demonstrates sinus rhythm, rate 68, normal axis, normal KS and QTc, no STEMI, no evidence of WPW, Brugada, prolonged QT, or HCM. Labs personally reviewed demonstrate no leukocytosis or anemia, platelets normal, CMP nonactionable, troponin undetectable, hCG negative. Labs are very reassuring especially since patient is asymptomatic and never had chest pain. Chest x-ray personally interpreted does not demonstrate lobar infiltrate, pneumothorax, or widened mediastinum. See radiology read for final interpretation. On reassessment patient is sleeping soundly, resting comfortably, she is appropriate for discharge. She has been ambulating independently around the ER and remains asymptomatic. She is tolerating oral intake. I do not believe any prescription changes are indicated at this time since she has been on a stable regimen for months and has no abnormalities on workup. Patient was given instructions on symptomatic management, follow up instructions, and return precautions for the emergency department. Patient indicated understanding and was discharged in stable condition. Procedures Miscellaneous Procedure Procedure Performed: Ultrasound-guided IV Indication: Need for peripheral IV access, multiple failed nursing attempts Consent provided by: Patient after discussion of risks and benefits Procedure details: Area cleansed with alcohol. Real-time ultrasound guidance used to place 20-gauge IV in the left AC. First attempt success. IV draws and flushes. Secured with Tegaderm. Post procedure details: Patient neurovascularly intact, no complications Patient tolerated procedure well Critical Care Critical Care Time Critical Care Time: No
[2024-11-07] MEDS: KETOROLAC 30MG/ML VIAL 15 MG IV (03:08)
--- NOTE | 2024-11-07 03:15 | XR_ITS ---
PROCEDURE INFORMATION: Exam: XR Chest Exam date and time: 11/07/2024 3:56 AM Age: 39 years old Clinical indication: Other: Syncope TECHNIQUE: Imaging protocol: Radiologic exam of the chest. Views: 1 view. COMPARISON: CR XR CHEST 2V 10/25/2024 9:26 PM FINDINGS: Lungs: Unremarkable. No consolidation. Pleural spaces: Unremarkable. No pleural effusion. No pneumothorax. Heart/Mediastinum: Unremarkable. No cardiomegaly. Bones/joints: Unremarkable. IMPRESSION: No acute findings.
--- NOTE | 2024-11-07 03:18 | ECG_ITS ---
APPROVED REPORT Exam: Resting ECG HR:68 bpm ECG Measurements Heart Rate 68 AXES SD 159 P 57 QRSd 75 QRS 40 QT 373 T 67 QTc 390 Conclusion SINUS RHYTHM NONSPECIFIC T-WAVE ABNORMALITY No STEMI Electronically signed by : RIANNA DIALLO, 11/07/2024 06:53:27
--- NOTE | 2024-11-07 03:19 | PC.NURSE ---
Pt awake alert and oriented x3 Resp full and easy Skin pink warm and dry Speech clear and appropriate Pt falling asleep whenever not stimulated. Unsuccessful starting an IV and drawing blood. MD aware will attempt ultrasound IV Report given to Matilda CHOPRA
[2024-11-07 03:35] LABS: Basophils % 0.5 % (0.1-2.0); Eosinophils # 0.4 K/mm3 (0.0-0.4); Eosinophils % 4.9 % (0.1-12.0); Hematocrit 42.3 % (37.0-47.0); Hemoglobin 14.6 g/dL (12.2-16.2); Lymphocytes % 24.9 % (10-50); Mean Corpuscular HGB Conc 34.5 g/dL (31.8-35.4); Mean Corpuscular Hemoglobin 27.8 pg (27.0-31.2); Mean Corpuscular Volume 80.6 fl (81-99); Mean Platelet Volume 8.7 fl (7.4-10.4); Monocytes # 0.6 K/mm3 (0.1-1.0); Monocytes % 7.9 % (1.7-9.3); Neutrophils % 61.6 % (37.0-80.0); Platelet Count 299 K/mm3 (142-424); Red Blood Count 5.25 M/mm3 (4.20-5.40); White Blood Count 8.1 K/mm3 (4.8-10.8)
[2024-11-07 03:44] LABS: Chloride 106 mmol/L (98-107)
[2024-11-07 03:45] LABS: Albumin Level 4.2 g/dl (3.5-5.0); Potassium 3.7 mmoL/L (3.5-5.1); Sodium 135 mmol/L (136-145)
[2024-11-07 03:47] LABS: Blood Urea Nitrogen 16 mg/dl (7-17); Creatinine Clearance Estimated 131 mL/min (50-200); Estimated Glomerular Filt Rate 69 ml/min (>60); GFR (African American) 84 ML/MIN (>60)
[2024-11-07 03:48] LABS: Alanine Aminotransferase 21 U/L (12-78); Albumin/Globulin Ratio 1.4 (1.1-1.8); Alkaline Phosphatase 116 U/L (38-126); Anion Gap 11.7 mEq/L (5-15); Aspartate Amino Transferase 24 U/L (14-36); Bilirubin,Total 0.6 mg/dl (0.2-1.3); Calcium 9.3 mg/dl (8.4-10.2); Carbon Dioxide 21 mmol/L (22.0-30.0); Globulin 2.9 g/dL (1.3-3.2); Glucose 98 mg/dl (74-100); Total Protein,Serum 7.1 g/dl (6.3-8.2)
[2024-11-07 03:50] LABS: HCG Qualitative, Serum Negative (Negative)
--- NOTE | 2024-11-07 03:55 | PC.NURSE ---
RAD at bedside
[2024-11-07 04:01] LABS: Troponin I < 0.01 ng/ml (0.00-0.034)
[2024-11-07 04:16] VITALS: BP 126/90; PULSE 75; RESP 20; O2SAT 97
--- NOTE | 2024-11-07 04:37 | PC.NURSE ---
Patient is ready for discharge however [facility] reports they have no transportation for patient to get back to [facility]. RN called [employer] and police was out on a call at the time will call back if they have a ride available. MD aware. Patient provided with blanket and is resting in room at this time.
[2024-11-07 04:42] LABS: HIV Combo NEGATIVE (Negative)
[2024-11-07 04:50] LABS: Hepatitis C Ab Qual. W/ RFX REACTIVE (Negative)
--- NOTE | 2024-11-07 05:01 | PC.NURSE ---
Patient given snacks and another warm blanket, voiced no other needs at this time. Updated patient on POC.
--- NOTE | 2024-11-07 05:05 | PC.NURSE ---
Pt resting quietly in bed. Eating a snack No complaints at this time
--- NOTE | 2024-11-07 06:04 | PC.NURSE ---
Pt sleeping when undisturbed Awaiting transport back to facility
--- NOTE | 2024-11-07 06:41 | PC.NURSE ---
PT SLEEPING UPON ENTERING ROOM. VITALS ASSESSED AND DOCUMENTED. PT AWAITING TRANSPORT TO [facility]. PROVIDER AWARE.
[2024-11-07 06:43] VITALS: BP 145/78; PULSE 71; RESP 18; O2SAT 96
--- NOTE | 2024-11-07 06:44 | PC.NURSE ---
Called [facility] for transport for client home. They state it will have to wait until after 7 The company car is broken down
--- NOTE | 2024-11-07 06:58 | PC.NURSE ---
0700 This RN takes care handoff report from Saniya Timmons RN. Pt currently waiting for transportation back to [facility] at this time, pt updated on status. No acute distress noted, pt ambulatory in room/hallway at this time.
[2024-11-07 07:17] VITALS: BP 142/96; PULSE 91; RESP 18; TEMP 36.8; O2SAT 98
--- NOTE | 2024-11-07 07:20 | PC.NURSE ---
Maribel Jara RN discussed d/c paperwork with pt and [employer] [facility] Employee. No new prescriptions.
== END 2024-11-07 07:21 | disposition home or self-care (01) ==
PROVIDERS: Emergency Provider Emergency Medicine
DX: R55 Syncope and collapse (principal); M79.603 Pain in arm, unspecified; M79.606 Pain in leg, unspecified
CPT/HCPCS: 71045; 80053; 84484; 84703; 85025; 86803; 87389; 87522; 93005; 96374; 99283; J1885

== ENCOUNTER 2024-11-28 16:48 | Emergency (ER) | payer MEDICAID, SELFPAY ==
[2024-11-28 16:48] VITALS: BP 129/72; PULSE 74; RESP 16; TEMP 36.6; O2SAT 95; BMI 36.0
--- NOTE | 2024-11-28 17:17 | ECG_ITS ---
APPROVED REPORT Exam: Resting ECG HR:68 bpm ECG Measurements Heart Rate 68 AXES OK 175 P 56 QRSd 84 QRS 88 QT 383 T 39 QTc 400 Conclusion SINUS RHYTHM NORMAL ECG UNCONFIRMED REPORT Electronically signed by : SHAYY SELF, 11/29/2024 23:58:42
[2024-11-28] MEDS: KETOROLAC 30MG/ML VIAL 15 MG IM (17:27)
--- NOTE | 2024-11-28 17:28 | ED_ITS ---
Discharge Plan Disposition Patient Disposition: Home, Self-Care Prescriptions Prescriptions: New ibuprofen 400 mg tablet 400 mg PO Q8H PRN (Reason: pain) Qty: 20 0RF Rx Instructions: Do not take with meloxicam or other NSAIDs acetaminophen 500 mg tablet 500 mg PO Q6H PRN (Reason: pain) Qty: 30 0RF No Action ondansetron 4 mg Tablet,Disintegrating 4 mg PO Q8H PRN (Reason: Nausea) Qty: 12 0RF haloperidol 5 mg tablet 5 mg PO DAILY olanzapine 5 mg tablet 5 mg PO TID meloxicam 7.5 mg tablet 7.5 mg PO BID pantoprazole 40 mg tablet,delayed release (DR/EC) 40 mg PO DAILY fluoxetine 10 mg capsule 10 mg PO DAILY loratadine [Allergy Relief (loratadine)] 10 mg tablet 10 mg PO DAILY divalproex 250 mg tablet extended release 24 hr 250 mg PO BID Invega Sustenna 156 mg/mL syringe 156 mg IM MONTHLY lidocaine 5 % adhesive patch,medicated 1 patch topical DAILY Qty: 30 0RF Rx Instructions: leave on most painful area for up to 12 hrs nwokmqizqarxzch-iqfrkzxdm-PZ [Bromfed DM] 2-30-10 mg/5 mL syrup 5 ml PO Q4H PRN (Reason: sinus symptoms) Qty: 118 0RF aripiprazole [Abilify] 10 mg tablet 10 mg PO DAILY Patient Comments: Take 1 tablet by mouth every evening lisinopril 10 mg tablet 10 mg PO DAILY Patient Comments: Take 1 tablet by mouth once a day melatonin 10 mg tablet 10 mg PO DAILY Patient Comments: Take 1 tablet by mouth every night at bedtime Referrals Follow up/Referrals: Lonnie Calzada, JOANNA [Primary Care Provider] - See instructions Rick Abdi DO [Staff Physician] - See instructions Activity Restrictions/Add. Instructions Additional Instructions/Restrictions: Call your family doctor to establish care for this visit to the emergency department and schedule follow-up within 48 hours to ensure improvement. If you have any worsening of your condition or any other concerning signs or symptoms, return to the emergency department or your primary care doctor for further evaluation. Call to schedule appointment with Dr. Abdi for your ankle. Clinical Impressions Clinical Impression: Acute right ankle pain, Pre-syncope Print Language Print Language: Telugu Discharge ED Provider: Barbie,Ross A General Adult HPI General Chief complaint: Recheck/Abnormal Lab/Rx Stated complaint: VISION PROBLEM Time Seen by Provider: 11/28/24 16:50 Mode of Arrival: EMS Source of Information: Patient Limitations: No Limitations Description of Symptoms (Recalled from ER Triage Doc. by RN): Patient reports that she hasn't had her medications that keep her from blacking out in 9 months. States she just needs socks and a blanket. History of Present Illness HPI narrative: Please note that above description of symptoms, in this electronic medical record under categorization of recalled from ER triage doctor by RN are reflective of an initial nursing assessment, however, is not reflective of my full history and physical exam that was personally taken and clarified. Consequentially, this preceding description of symptoms, which may include the patient's categorized chief complaint in the EMR, do not reflect my personal clinical impression, and the ultimate description of history of present illness and patient stated complaints should be deferred to this section of the note. Unless stated otherwise or congruent with this section of the note, additional signs, symptoms, or incongruence should be interpreted as inaccurate with my clinical impression. Related Data Home Medications ?Medication ?Instructions ?Recorded ?Confirmed aripiprazole 10 mg tablet (Abilify) 10 mg PO DAILY 02/25/24 05/18/24 lisinopril 10 mg tablet 10 mg PO DAILY 02/25/24 05/18/24 melatonin 10 mg tablet 10 mg PO DAILY 02/25/24 05/18/24 divalproex 250 mg tablet,extended 250 mg PO BID 05/18/24 05/18/24 release 24 hr fluoxetine 10 mg capsule 10 mg PO DAILY 05/18/24 05/18/24 haloperidol 5 mg tablet 5 mg PO DAILY 05/18/24 05/18/24 loratadine 10 mg tablet (Allergy 10 mg PO DAILY 05/18/24 05/18/24 Relief (loratadine)) meloxicam 7.5 mg tablet 7.5 mg PO BID 05/18/24 05/18/24 olanzapine 5 mg tablet 5 mg PO TID 05/18/24 05/18/24 paliperidone palmitate 156 mg/mL 156 mg IM MONTHLY 05/18/24 05/18/24 intramuscular syringe (Invega Sustenna) pantoprazole 40 mg tablet,delayed 40 mg PO DAILY 05/18/24 05/18/24 release Previous Rx's ?Medication ?Instructions ?Recorded ondansetron 4 mg disintegrating 4 mg PO Q8H PRN Nausea #12 tabs 05/01/24 tablet xbysolkizfpbovx-lpmzirfojlgnkas-VR 5 ml PO Q4H PRN sinus symptoms 10/25/24 2 mg-30 mg-10 mg/5 mL oral syrup #118 mL (Bromfed DM) lidocaine 5 % topical patch 1 patch topical DAILY #30 ea 10/25/24 acetaminophen 500 mg tablet 500 mg PO Q6H PRN pain #30 tabs 11/28/24 ibuprofen 400 mg tablet 400 mg PO Q8H PRN pain #20 tabs 11/28/24 Allergies Allergy/AdvReac Type Severity Reaction Status Date / Time No Known Allergies Allergy Verified 06/09/24 18:29 [facility] Disclaimer: The information contained in this section may have been updated after the patient was seen, as this information can be updated by other users. Medical History Hx of drug overdose Anxiety Hypertension Surgical History H/O LEEP Family History (Updated 05/18/24 @ 16:56 by Willa Dangelo RN) Other Unknown family medical history Social History (Updated 05/18/24 @ 16:56 by Willa Dangelo RN) Smoking Status: Current every day smoker alcohol intake: current current occupational status: disabled and other Travel in the last 8 weeks: None Have you lived/traveled outside [place] in past 30 days?: No Contact w/someone who lives/traveled outside US past 30 days?: No Exposure to someone with infectious disease in past 14 days?: No Do you have a fever (greater than 100.4 F or 38 C)?: No Have you tested positive for COVID-19: No Exposed to someone with COVID-19 in past 14 days?: No Do you have a sore throat?: No Do you have a cough?: No Do you have any weakness?: No Do you have any diarrhea?: No Are you experiencing any unusual bleeding?: No Do you have any muscle aches/pain?: No Do you have any abdominal pain?: No Are you experiencing loss of taste or smell?: No Other Medical History Have you received the Flu Vaccine for this season: Yes Have you received the Pneumonia Vaccine: No ROS Obtained: Yes All systems reviewed & no additional complaints except as documented Physical Exam General General appearance: alert Head Head exam: atraumatic and normocephalic Eye Eye exam: Present normal appearance, PERRL and EOMI Neck Neck exam: Present normal inspection, full ROM and trachea midline Respiratory Respiratory exam: Absent respiratory distress, wheezes, stridor, accessory muscle use or prolonged expiratory phase Cardiovascular Cardiovascular exam: Present other (Pulses equal symmetric in upper and lower extremities) Abdominal Exam Abdominal exam: Present soft; Absent distention, tenderness or pulsatile mass Extremities Exam Extremities exam: Absent edema Neurological Exam Neurological exam: Present alert, oriented X3 and CN II-XII intact; Absent motor sensory deficit Skin Skin exam: Present warm and dry; Absent diaphoresis or erythema Medical Decision Making Medical Records Medical records reviewed: Yes I reviewed the patient's medical records. Screening: Per USPSTF and CDC recommendations, given the prevalence of disease in our region, it is our hospital?s policy to screen for HIV and viral Hepatitis for all patients aged 18 and over and those with ongoing risk factors. Karel Inquiry Pt receiving controlled substance: No Karel was queried for this patient: No Vital Signs: 11/28/24 16:48 Temperature 97.9 F Temperature Source Oral Pulse Rate [Radial] 74 Respiratory Rate 16 Blood Pressure [Right Arm] 129/72 Blood Pressure Mean [Right Arm] 91 Blood Pressure Source [Right Arm] Automatic Cuff Blood Pressure Position [Right Arm] Sitting 02 Sat by Pulse Oximetry 95 Oxygen Delivery Method Room Air Orders (Tests/Meds): ED MEDICATIONS Discontinued Medications Generic Name Dose Route Start Last Admin Trade Name Karol PRN Reason Stop Dose Admin Ketorolac Tromethamine 15 mg 11/28/24 17:10 11/28/24 17:27 Ketorolac 30mg/Ml Vial IM 11/28/24 17:11 15 mg ONCE ONE Administration ORDERS Category Date Time Status POCUS Point of Care (ER Only) Stat Exams 11/28/24 17:53 Ordered Medical Decision Narrative: This is a 39-year-old female with history of hypertension, anxiety, schizophrenia, vasovagal syncope, chronic right lower extremity pain presenting with near syncope and right lower extremity pain. Patient states that she has an episode where she nearly passes out just about every month. States that today she was at a restaurant eating Armenian fries and stood up when she had lightheadedness, tunnel vision. Denies blurry vision, double vision, changes in vision in general before or after this episode. She did not syncopized and this only lasted a couple seconds, then she was able to return to baseline. States that she think she supposed to have a medication that she which she was prescribed at for a diagnosis that she does not remember. On chart review and [facility]'s system, patient was diagnosed with vasovagal syncope and no medications were prescribed. She states that these episodes generally happen when she stands up and her head feels swimmy. Patient also has complaints of right lower extremity pain, intermittent nausea, as well as a host of other complaints. Asking for Toradol shot and refills on medication she is supposed to be on. History was obtained via conversation with patient and EMS, outside hospital chart review. On arrival, patient hemodynamically stable, alert, oriented x4, appropriate, GCS 15, moving all extremities spontaneously, pupils equal and reactive to light. Full physical exam performed and significant for very clinically well-appearing female who is ambulatory and in no acute distress. Visual acuity in the right eye is 20/200, left eye 20/50, combined 2039. Patient states this is unchanged. Cardiac exam normal, very clinically well. Differential includes acute on chronic pain, poor health literacy, vasovagal presyncope, orthostatic presyncope, arrhythmia, among others. Patient placed on continuous cardiac monitoring and continuous pulse ox with initial blood pressure 129/72, heart rate 74, saturation 95% on room air. In dependent interpretation of EKG shows sinus rhythm [address] elevation or T wave changes consistent with acute ischemia. MS interval 175, QRS 84, QTc 400. No delta waves, epsilon waves, or other electrical abnormalities. Patient was given Toradol for right lower extremity pain. Bedside qovyw-za-keih ultrasound demonstrates normal cardiac activity. because patient asymptomatic, known vasovagal presyncope, and history consistent with potential orthostasis, normal EKG, normal echo, I do not feel further workup is necessary at this time. Patient states that her nose and lips feel cracked, bacitracin ointment was given for this. Because patient at baseline without signs or symptoms of clinical decompensation, deemed appropriate for discharge. Results were relayed to patient who voiced understanding and were agreeable to outpatient management and follow up. I discussed my clinical impression with patient and answered all questions. At this time, the evidence for any other entities in the differential is insufficient to warrant any further testing or ED observation. This was explained as well. Advisory was given that persistent or worsening symptoms require further evaluation. I confirmed the understanding of this discussion. Patient feels comfortable seeing orthopedics outpatient for her ankle as well. Tylenol and ibuprofen sent to the pharmacy for her. Supervisor Electronic Testing disclaimer Much of this encounter note is an electronic automation driver spoken language to printed text. Electronic automation driver of the spoken language may permit errors. Although I have reviewed the note, some errors may still exist. Procedures Limited Ultrasound Indication:: Limited cardiac ultrasound Indication: Near syncope with position change Identified cardiac views: -Cardiac parasternal long axis -Cardiac parasternal short axis Findings: -Cardiac activity present -Gross wall motion normal -Pericardial effusion absent -Right heart strain absent Impression: -Normal cardiac ultrasound Images were saved to permanent archive The study was technically adequate CPT: 99823 This study was performed by me, and I personally interpreted all images/videos. Based on my clinical judgement, these images were adequate and did not necessitate further imaging Critical Care Critical Care Time Critical Care Time: No
--- NOTE | 2024-11-28 17:56 | PC.NURSE ---
ROUNDED ON THE PT. THE PT VOICES THAT SHE DOES NOT NEED ANYTHING AT THIS TIME. CALL LIGHT IS WITHIN REACH OF THE PT.
--- NOTE | 2024-11-28 18:08 | PC.NURSE ---
CALLED DARRON MORGAN @[phone] FOR PT.
[2024-11-28] MEDS: BACITRACIN OINT 0.9GM UDP 1 EACH TP (18:10)
--- NOTE | 2024-11-28 18:13 | PC.NURSE ---
PT GIVEN A SODA, SANDWICH, AND BELONGINGS BAG FOR HER HOUSE SLIPPERS
[2024-11-28 18:24] VITALS: BP 120/78; PULSE 79; RESP 20; TEMP 36.6; O2SAT 98
== END 2024-11-28 18:26 | disposition home or self-care (01) ==
PROVIDERS: Emergency Provider Emergency Medicine; PCP Nurse Practitioner Acute Care
DX: M25.571 Pain in right ankle and joints of right foot (principal); R55 Syncope and collapse; R42 Dizziness and giddiness; H53.483 Generalized contraction of visual field, bilateral; M79.661 Pain in right lower leg; Z72.0 Tobacco use
CPT/HCPCS: 93005; 96372; 99283; J1885

== ENCOUNTER 2024-12-19 17:21 | Observation (INO) | payer MEDICAID, SELFPAY ==
[2024-12-19] VITALS (15 sets, daily range): BP systolic 106–140; BP diastolic 60–80; PULSE 75–95; RESP 16–22; TEMP 36.6–37.4; O2SAT 89–96; BMI 23.3; BMI 31.1
--- NOTE | 2024-12-19 17:27 | ECG_ITS ---
APPROVED REPORT Exam: Resting ECG HR:94 bpm ECG Measurements Heart Rate 94 AXES KS 132 P 38 QRSd 85 QRS 77 QT 332 T 49 QTc 383 Conclusion SINUS RHYTHM NORMAL ECG Electronically signed by : KELLE OSWALD, 12/19/2024 23:12:41
--- NOTE | 2024-12-19 17:30 | PC.NURSE ---
pt 85% on 4L NC. pt refusing to wear non rebreather mask. pt reports that it makes her feel that she is smothering. notified. oxygen level increased to 6L NC.
[2024-12-19 17:34] LABS: Coronavirus 19, PCR Not Detected (NotDetected); Influenza A, PCR Not Detected (NotDetected); Influenza B, PCR Not Detected (NotDetected)
--- NOTE | 2024-12-19 17:34 | XR_ITS ---
PROCEDURE INFORMATION: Exam: XR Chest Exam date and time: 12/19/2024 6:39 PM Age: 39 years old Clinical indication: Cough; Additional info: Resp failure, cough, SOA TECHNIQUE: Imaging protocol: Radiologic exam of the chest. Views: 2 views. COMPARISON: CR XR CHEST PORTABLE 11/07/2024 3:56 AM FINDINGS: Lungs: Increased interstitial lung markings. Increased vascular prominence. Perhaps small reticular/granular opacities of the peripheral basilar lung cummings. Pleural spaces: Unremarkable. No pleural effusion. No pneumothorax. Heart/Mediastinum: Unremarkable. No cardiomegaly. Vasculature: Increased vascular indistinctness and cephalization of the vasculature. Bones/joints: Unremarkable. IMPRESSION: Findings which are suspicious for pulmonary edema/CHF. Correlate clinically.
[2024-12-19 18:03] LABS: Lactate Venous 0.7 mmol/L (0.4-2.0); VBG Base Excess -4.3 mmol/L (-2.4-2.3); VBG HCO3 19.5 mmol/L (23-30); VBG Oxygen Saturation 93.6 % (50-70); VBG PCO2 28.3 mmol/L (35-51); VBG PH 7.46 mmol/L (7.31-7.41); VBG PO2 64.8 mmol/L (28-40); VBG Total CO2 20.4 mmol/L (23-27)
[2024-12-19 18:20] LABS: Basophils % 0.1 % (0.1-2.0); Eosinophils # 0.1 K/mm3 (0.0-0.4); Eosinophils % 1.1 % (0.1-12.0); Hematocrit 35.6 % (37.0-47.0); Hemoglobin 12.4 g/dL (12.2-16.2); Lymphocytes # 0.8 K/mm3 (0.7-4.5); Lymphocytes % 9.2 % (10-50); Mean Corpuscular HGB Conc 34.8 g/dL (31.8-35.4); Mean Corpuscular Hemoglobin 27.4 pg (27.0-31.2); Mean Corpuscular Volume 78.6 fl (81-99); Mean Platelet Volume 9.1 fl (7.4-10.4); Monocytes # 0.7 K/mm3 (0.1-1.0); Monocytes % 7.5 % (1.7-9.3); Neutrophils # 7.4 K/mm3 (1.8-7.8); Neutrophils % 81.9 % (37.0-80.0); Platelet Count 256 K/mm3 (142-424); Red Blood Count 4.53 M/mm3 (4.20-5.40); Red Cell Distribution Width 12.9 % (11.5-17.5)
[2024-12-19] MEDS: ACETAMINOPHEN 1,000MG/100ML VIAL 1000 MG IV (18:20)
--- NOTE | 2024-12-19 18:20 | [facility].EDCP ---
Discharge Plan Disposition Patient Disposition: Admitted Condition: Fair Clinical Impressions Clinical Impression: Acute hypoxemic respiratory failure, Wheezing, Pneumonia, Acute hyponatremia Discharge ED Provider: Eli Meek General Chief Complaint: Shortness of Breath/Dyspnea Stated Complaint: SOA Time Seen by Provider: 12/19/24 17:30 Mode of Arrival: EMS Source of Information: Patient Description of Symptoms (Recalled from ER Triage Doc. by RN): pt presents to ed from [facility] multiple complaints. pt c/o pain in bilateral legs, shortness of air, chest pain, fatigue, productive cough. symptoms ongoing for the past month intermittent. ems reports pt was 85% on room air upon their arrival. 1 duoneb en route with minial relief. History of Present Illness HPI narrative: This patient is a 39-year-old female who is well-known to the emergency department with history of obesity, hypertension, bipolar disorder, anxiety presenting to the emergency department from [facility] for evaluation with concern for cough and shortness of breath. Patient states that she has been sick for about 2 weeks. She notes that she is hurting in her legs, her chest wall hurts from coughing, and she is coughing a lot of stuff up. She arrives by EMS who notes that she was hypoxic en route with an O2 saturation of 85% on room air. They administered 1 DuoNeb without good improvement. Patient is a smoker but denies any history of lung problems to me. Related Data Home Medications ?Medication ?Instructions ?Recorded ?Confirmed aripiprazole 10 mg tablet (Abilify) 10 mg PO DAILY 02/25/24 05/18/24 lisinopril 10 mg tablet 10 mg PO DAILY 02/25/24 05/18/24 melatonin 10 mg tablet 10 mg PO DAILY 02/25/24 05/18/24 divalproex 250 mg tablet,extended 250 mg PO BID 05/18/24 05/18/24 release 24 hr fluoxetine 10 mg capsule 10 mg PO DAILY 05/18/24 05/18/24 haloperidol 5 mg tablet 5 mg PO DAILY 05/18/24 05/18/24 loratadine 10 mg tablet (Allergy 10 mg PO DAILY 05/18/24 05/18/24 Relief (loratadine)) meloxicam 7.5 mg tablet 7.5 mg PO BID 05/18/24 05/18/24 olanzapine 5 mg tablet 5 mg PO TID 05/18/24 05/18/24 paliperidone palmitate 156 mg/mL 156 mg IM MONTHLY 05/18/24 05/18/24 intramuscular syringe (Invega Sustenna) pantoprazole 40 mg tablet,delayed 40 mg PO DAILY 05/18/24 05/18/24 release Previous Rx's ?Medication ?Instructions ?Recorded ondansetron 4 mg disintegrating 4 mg PO Q8H PRN Nausea #12 tabs 05/01/24 tablet jfbiafqivodsoyk-lazughnlhlwzayn-JU 5 ml PO Q4H PRN sinus symptoms 10/25/24 2 mg-30 mg-10 mg/5 mL oral syrup #118 mL (Bromfed DM) lidocaine 5 % topical patch 1 patch topical DAILY #30 ea 10/25/24 acetaminophen 500 mg tablet 500 mg PO Q6H PRN pain #30 tabs 11/28/24 ibuprofen 400 mg tablet 400 mg PO Q8H PRN pain #20 tabs 11/28/24 Allergies Allergy/AdvReac Type Severity Reaction Status Date / Time No Known Allergies Allergy Verified 06/09/24 18:29 [facility] Disclaimer: The information contained in this section may have been updated after the patient was seen, as this information can be updated by other users. Medical History Hx of drug overdose Anxiety Hypertension Surgical History H/O LEEP Family History Other Unknown family medical history Social History (Updated 12/19/24 @ 22:32 by Lynne Chowdary RN) Smoking Status: Current every day smoker years smoked: 20 alcohol intake: current substance use type: former substance user current occupational status: disabled and other Travel in the last 8 weeks: None service: No fci: No ([facility], from [facility]) physical activity: walking Contact w/someone who lives/traveled outside [place] past 30 days?: No Exposure to someone with infectious disease in past 14 days?: No Do you have a fever (greater than 100.4 F or 38 C)?: No Have you tested positive for COVID-19: No Exposed to someone with COVID-19 in past 14 days?: No Do you have a sore throat?: No Do you have a cough?: Yes Do you have any weakness?: No Are you experiencing any nausea/vomitting?: No Do you have any diarrhea?: No Are you experiencing any unusual bleeding?: No Do you have any muscle aches/pain?: No Do you have any abdominal pain?: No Are you experiencing loss of taste or smell?: No Other Medical History Have you received the Flu Vaccine for this season: Yes Have you received the Pneumonia Vaccine: No ROS Obtained: Yes All systems reviewed & no additional complaints except as documented Physical Exam General General appearance: alert and in no apparent distress Head Head exam: atraumatic and normocephalic Eye Eye exam: Present normal appearance, PERRL and EOMI ENT ENT exam: Present normal exam, normal oropharynx, mucous membranes moist and normal external ear exam Neck Neck exam: Present normal inspection, full ROM and trachea midline; Absent tenderness Chest Chest inspection: Present normal inspection and symmetric chest wall rise; Absent tenderness Respiratory Respiratory exam: Present wheezes, prolonged expiratory phase and other (Bilateral wheezes and rhonchi. Nontachypneic without significant sensory muscle use, but she does have prolonged expiratory phase.); Absent respiratory distress or stridor Cardiovascular Cardiovascular exam: Present regular rate and normal rhythm Abdominal Exam Abdominal exam: Present soft; Absent distention, tenderness or guarding Extremities Exam Extremities exam: Present normal inspection, full ROM and normal capillary refill; Absent tenderness or edema Back Exam Back exam: Present normal inspection and full ROM; Absent tenderness Neurological Exam Neurological exam: Present alert, oriented X3, CN II-XII intact and normal gait; Absent motor sensory deficit Psychiatric Psychiatric exam: Present normal affect and normal mood Skin Skin exam: Present warm and dry HEART Score HEART Score HEART Score assessment performed?: Yes History (anamnesis): Slightly suspicious ECG: Normal Age: <45 years Risk factors: No known risk factors Troponin: </= normal limit HEART Score: 0 Critical Care Critical Care Time Critical Care Time: Yes Attestation: On 12/19/24, the high probability of a clinically significant, sudden or life threatening deterioration of the following system(s) required my full and direct attention, intervention and personal management. The time I documented below is in addition to time spent performing reported procedures but includes the following listed in this critical care notation. Total Time Total Critical Care Time: 30 Medical Decision Making Karel Inquiry Pt receiving controlled substance: No Vital Signs Vital Signs: 12/19/24 17:37 12/19/24 18:00 12/19/24 20:14 Temperature 99.4 F Temperature Source Oral Pulse Rate 87 Pulse Rate [Left Radial] 91 H Respiratory Rate 19 Blood Pressure 115/75 Blood Pressure [Right Arm] 127/80 Blood Pressure Mean 83 Blood Pressure Mean [Right Arm] 95 Blood Pressure Source [Right Arm] Automatic Cuff Blood Pressure Position [Right Arm] Supine 02 Sat by Pulse Oximetry 89 L 91 L Oxygen Delivery Method Nasal Cannula Vapotherm Oxygen Flow Rate (LPM) 6 30 Fraction of Inspired Oxygen 70 Lab Data Labs: Lab Results 12/19/24 17:27: SARS-CoV-2 (PCR) Not detected, Influenza A Untype (PCR) Not detected, Influenza Type B (PCR) Not detected 12/19/24 17:54: WBC 9.0, RBC 4.53, Hgb 12.4, Hct 35.6 L, MCV 78.6 L, MCH 27.4, MCHC 34.8, RDW 12.9, Plt Count 256, MPV 9.1, Neut % (Auto) 81.9 H, Lymph % (Auto) 9.2 L, [place] % (Auto) 7.5, Eos % (Auto) 1.1, Baso % (Auto) 0.1, Neut # (Auto) 7.4, Lymph # (Auto) 0.8, [place] # (Auto) 0.7, Eos # (Auto) 0.1, Baso # (Auto) 0.0, D-Dimer 0.28, Sodium 125 L, Potassium 4.4, Chloride 98, Carbon Dioxide 19 L, Anion Gap 12.4, BUN 10, Creatinine 0.70, Estimated Creat Clear 111, Estimated GFR 93, Est GFR ( Amer) 112, Glucose 125 H, Lactate 0.7, Calcium 8.9, Total Bilirubin 0.5, AST 25, ALT 21, Alkaline Phosphatase 92, Troponin I < 0.01, NT-Pro-B Natriuret Pep 148 H, Total Protein 7.2, Albumin 4.3, Globulin 2.9, Albumin/Globulin Ratio 1.5, Serum HCG, Qual Negative 12/19/24 17:59: VBG pH 7.46 H, VBG pCO2 28.3 L, VBG pO2 64.8 H, VBG HCO3 19.5 L, VBG Total CO2 20.4 L, VBG O2 Saturation 93.6 H, VBG Base Excess -4.3 L, VBG Lactic Acid 0.7 12/19/24 20:18: Chlamy pneumoniae PCR Not detected, Adenovirus (PCR) Not detected, B. pertussis DNA (PCR) Not detected, Coronavirus OC43 (PCR) Not detected, Coronavirus HKU1 (PCR) Not detected, Coronavirus 229E (PCR) Not detected, SARS-CoV-2 (PCR) Not detected, Coronavirus NL63 (PCR) Not detected, Human Metapneumovir PCR Not detected, Influenza A (H1) PCR Not detected, Influ A (H1N1/09) PCR Not detected, Influenza A (H3) PCR Not detected, Influenza Type A (PCR) Not detected, Influenza Type B (PCR) Not detected, M. pneumoniae (PCR) Not detected, Parainfluenza 1 (PCR) Not detected, Parainfluenza 2 (PCR) Not detected, Parainfluenza 3 (PCR) Not detected, Parainfluenza 4 (PCR) Not detected, RSV (PCR) Not detected, Entero/Rhino (PCR) Not detected 12/19/24 17:54 12/19/24 17:54 Response Orders (Tests/Meds): ED MEDICATIONS Generic Name Dose Route Start Last Admin Trade Name Freq PRN Reason Stop Dose Admin Acetaminophen 650 mg 12/19/24 20:20 Acetaminophen 325mg Tab PO 01/18/25 20:19 Q4HP PRN Fever or Mild Pain (1-3) Hydrocodone Bitart/Acetaminophen 1 tab 12/19/24 20:20 12/19/24 22:00 Hydrocodone/Apap 5/325 Mg Tablet PO 01/18/25 20:19 1 tab Q4HP PRN Administration Mild to Moderate Pain (1-6) Albuterol/Ipratropium 3 ml 12/20/24 00:00 Ipratropium/Albuterol 3 Ml Neb IH 01/19/25 00:00 Q6RT YOSEPH Enoxaparin Sodium 40 mg 12/20/24 09:00 Enoxaparin 40mg/0.4ml Syringe SUBCUT 01/19/25 08:59 DAILY YOSEPH Furosemide 40 mg 12/20/24 09:00 Furosemide 40mg/4ml Vial IV 01/19/25 08:59 BIDL YOSEPH Hydroxyzine Pamoate 50 mg 12/19/24 21:20 12/19/24 22:00 Hydroxyzine Pamoate 25mg Capsule PO 01/18/25 21:19 50 mg TIDP PRN Administration Anxiety Morphine Sulfate 2 mg 12/19/24 20:20 Morphine 2mg/Ml Syringe IV 01/18/25 20:19 Q4HP PRN Severe Pain (7-10) Nicotine 21 mg 12/19/24 21:00 12/19/24 22:00 Nicotine 21mg/24hr Patch TD 01/18/25 20:59 21 mg DAILY YOSPEH Administration Ondansetron HCl 4 mg 12/19/24 20:20 Ondansetron 4mg/2ml Vial IV 01/18/25 20:19 Q8HP PRN Nausea Sodium Chloride 10 ml 12/19/24 20:20 Sodium Chloride 0.9% 10ml Flush Syringe IV 01/18/25 20:19 NEEDED PRN Maintain IV Site Discontinued Medications Generic Name Dose Route Start Last Admin Trade Name Freq PRN Reason Stop Dose Admin Acetaminophen 1,000 mg 12/19/24 18:13 12/19/24 18:20 Acetaminophen 1,000mg/100ml Vial IV 12/19/24 18:14 1,000 mg ONCE ONE Administration Albuterol Sulfate 20 mg 12/19/24 19:20 12/19/24 19:51 Albuterol 0.083% 2.5 Mg/3 Ml Neb 12/19/24 19:21 20 mg ONCE ONE Administration Albuterol/Ipratropium 9 ml 12/19/24 18:13 12/19/24 18:21 Ipratropium/Albuterol 3 Ml Neb 12/19/24 18:14 9 ml ONCE ONE Administration Furosemide 40 mg 12/19/24 20:04 12/19/24 22:00 Furosemide 40mg/4ml Vial IV 12/19/24 20:05 40 mg ONCE ONE Administration Lactated Ringer's 1,780 mls @ 890 mls/hr 12/19/24 18:13 12/19/24 18:21 Lactated Ringer's 1000 Ml Bag 30 ml/kg infuse over 2 hr (1780 ml) 12/19/24 20:12 890 mls/hr IV Administration .Q2H ONE Ceftriaxone Sodium 2 gm/ 100 mls @ 200 mls/hr 12/19/24 19:00 12/19/24 19:10 Sodium Chloride IV 12/19/24 19:29 200 mls/hr ONCE ONE Administration Azithromycin 500 mg/ Sodium 250 mls @ 250 mls/hr 12/19/24 19:00 12/19/24 19:10 Chloride IV 12/19/24 19:01 250 mls/hr ONCE ONE Administration Magnesium Sulfate 2 gm in 50 mls @ 50 mls/hr 12/19/24 19:20 12/19/24 19:49 Magnesium Sulfate 2gm/50ml Premix IV 12/19/24 20:19 50 mls/hr ONCE ONE Administration Ketorolac Tromethamine 15 mg 12/19/24 18:09 12/19/24 18:22 Ketorolac 30mg/Ml Vial IV 12/19/24 18:10 15 mg ONCE ONE Administration Methylprednisolone Sodium Succinate 125 mg 12/19/24 19:20 12/19/24 19:49 Methylprednisolone Sod Succ 125mg Vial IV 12/19/24 19:21 125 mg ONCE ONE Administration ORDERS Category Date Time Status CA echo color flow Routine Exams 12/20/24 08:00 Ordered CXR 2 view (NOT portable) [XR chest 2V] Stat Exams 12/19/24 17:34 Completed BNP [NT Pro Brain Natriuretic Pep.] Stat Lab 12/19/24 17:54 Completed Basic Metabolic Panel AMLAB Lab 12/20/24 06:00 Ordered Basic Metabolic Panel AMLAB Lab 12/21/24 06:00 Ordered Basic Metabolic Panel AMLAB Lab 12/22/24 06:00 Ordered Basic Metabolic Panel AMLAB Lab 12/23/24 06:00 Ordered Basic Metabolic Panel AMLAB Lab 12/24/24 06:00 Ordered Basic Metabolic Panel AMLAB Lab 12/25/24 06:00 Ordered Basic Metabolic Panel AMLAB Lab 12/26/24 06:00 Ordered Basic Metabolic Panel AMLAB Lab 12/27/24 06:00 Ordered Basic Metabolic Panel AMLAB Lab 12/28/24 06:00 Ordered Basic Metabolic Panel AMLAB Lab 12/29/24 06:00 Ordered Complete Blood Count Auto Diff AMLAB Lab 12/20/24 06:00 Ordered Complete Blood Count Auto Diff AMLAB Lab 12/21/24 06:00 Ordered Complete Blood Count Auto Diff AMLAB Lab 12/22/24 06:00 Ordered Complete Blood Count Auto Diff AMLAB Lab 12/23/24 06:00 Ordered Complete Blood Count Auto Diff AMLAB Lab 12/24/24 06:00 Ordered Complete Blood Count Auto Diff AMLAB Lab 12/25/24 06:00 Ordered Complete Blood Count Auto Diff AMLAB Lab 12/26/24 06:00 Ordered Complete Blood Count Auto Diff AMLAB Lab 12/27/24 06:00 Ordered Complete Blood Count Auto Diff AMLAB Lab 12/28/24 06:00 Ordered Complete Blood Count Auto Diff AMLAB Lab 12/29/24 06:00 Ordered Complete Blood Count Auto Diff Stat Lab 12/19/24 17:54 Completed Comprehensive Metabolic Panel Stat Lab 12/19/24 17:54 Completed D-Dimer Stat Lab 12/19/24 17:54 Completed Full Resp Panel w/COVID ([facility]) Routine Lab 12/19/24 20:18 Completed Lactic Acid Stat Lab 12/19/24 17:54 Completed Procalcitonin Routine Lab 12/20/24 06:00 Ordered Rapid PCR Covid and Flu A/B Stat Lab 12/19/24 17:27 Completed Serum [HCG Qualitative, Serum] Stat Lab 12/19/24 17:54 Completed Sodium,Urine Random Routine Lab 12/19/24 20:20 Ordered Trop I [Troponin I] Stat Lab 12/19/24 17:54 Completed Blood Culture Stat Micro 12/19/24 18:18 Received VBG [Venous Blood Gas] Stat RT 12/19/24 17:59 Completed ECG Data Tracing #1: Attestation: I reviewed this ECG and interpreted as documented below: ECG Narrative: Normal sinus rhythm with a ventricular rate of [address] changes concerning for ischemia. Normal intervals ECG initial impression date: 12/19/24 ECG initial impression time: 17:30 MDM Narrative Medical Decision Narrative: In summary, this patient is a 39-year-old female presenting to the Emergency Department for evaluation of cough, shortness of breath, bilateral leg pain. Differential diagnoses considered include but are not limited to viral syndrome, pneumonia, respiratory failure, PE, CHF. Ruling out the most morbid conditions drove assessment. It should be noted patient's history includes tobacco dependence, hypertension, obesity, bipolar disorder which are not at goal therapy. This complicates all aspects of care by increasing patient's risk for morbidity. I reviewed patient's past medical records and noted multiple previous ED evaluations for various complaints in the past. On exam, the patient is sitting upright. She has no significant increased work of breathing, but she does have coarse rhonchi and is hypoxic on room air. Her O2 saturation is around 86% on room air. She was placed on nasal cannula, but she breathes through her mouth and side of her nose. On 6 L, her O2 saturation is around 89%. She refuses venti mask or anything that would cover her mouth. Patient was given DuoNebs x 3 to assess for symptomatic improvement. No known history of COPD or asthma, but she is a smoker. Workup included CBC, CMP, troponin, BNP, D-dimer, vbg, lactic, blood culture, CXR, EKG. EKG obtained is reassuring. Patient was given a bolus of IV fluids as well as IV Toradol and acetaminophen for symptomatic improvement. I independently interpreted chest x-ray prior to the radiologist read and noted concern for patchy pneumonia. Radiology noted concern for possible pulmonary edema versus CHF, but her BNP is not significant elevated and she does not have any known history of cardiac dysfunction. Please see their read for final interpretation. It is possible this could be CHF, so I did give a dose of IV Lasix. Labs were obtained that demonstrated no significant leukocytosis but patient does have neutrophilic predominance. VBG demonstrates respiratory alkalosis. Patient has hyponatremia, which appears to be acute. Troponin negative. D-dimer negative. She is negative for COVID and flu, so I did send full respiratory panel. On reassessment, patient had some improvement after administration of nebs, but she continues to have significant wheezing. Given this, I gave her continuous albuterol neb, IV magnesium. She continues to have significant hypoxia requiring supplemental oxygen. With concern for possible pneumonia, gave IV Rocephin and azithromycin. Also gave IV Lasix as above. I feel she would benefit from admission for further workup and management. I had an interactive discussion with the hospitalist who admitted the patient.
[2024-12-19] MEDS: IPRATROPIUM/ALBUTEROL 3 ML NEB 9 ML IH (18:21)
[2024-12-19] MEDS: LACTATED RINGERS 1000ML 1,780 ML 890 ML IV (18:21)
[2024-12-19] MEDS: KETOROLAC 30MG/ML VIAL 15 MG IV (18:22)
[2024-12-19 18:25] LABS: Lactic Acid 0.7 mmol/L (0.7-2.1)
[2024-12-19 18:26] LABS: Alanine Aminotransferase 21 U/L (12-78); Albumin Level 4.3 g/dl (3.5-5.0); Albumin/Globulin Ratio 1.5 (1.1-1.8); Alkaline Phosphatase 92 U/L (38-126); Anion Gap 12.4 mEq/L (5-15); Aspartate Amino Transferase 25 U/L (14-36); Bilirubin,Total 0.5 mg/dl (0.2-1.3); Blood Urea Nitrogen 10 mg/dl (7-17); Calcium 8.9 mg/dl (8.4-10.2); Carbon Dioxide 19 mmol/L (22.0-30.0); Chloride 98 mmol/L (98-107); Creatinine Clearance Estimated 111 mL/min (50-200); Estimated Glomerular Filt Rate 93 ml/min (>60); GFR (African American) 112 ML/MIN (>60); Globulin 2.9 g/dL (1.3-3.2); Glucose 125 mg/dl (74-100); Potassium 4.4 mmoL/L (3.5-5.1); Sodium 125 mmol/L (136-145); Total Protein,Serum 7.2 g/dl (6.3-8.2)
[2024-12-19 18:30] LABS: D-Dimer 0.28 ug/mL (0.0-0.5)
[2024-12-19 18:35] LABS: NT Pro Brain Natriuretic Pep. 148 pg/mL (0-125)
[2024-12-19 18:38] LABS: HCG Qualitative, Serum Negative (Negative)
[2024-12-19 18:47] LABS: Troponin I < 0.01 ng/ml (0.00-0.034)
[2024-12-19] MEDS: AZITHROMYCIN 500 MG in 0.9 % SODIUM CHLORIDE 250 ML 250 MG IV (19:10)
[2024-12-19] MEDS: CEFTRIAXONE SODIUM 2 GM in 0.9 % SODIUM CHLORIDE 100 ML IV (19:10)
[2024-12-19] MEDS: MAGNESIUM SULFATE IN WATER 2 GM/50 ML PIGGYBACK IV (19:49)
[2024-12-19] MEDS: METHYLPREDNISOLONE SOD SUCC 125MG VIAL 125 MG IV (19:49)
[2024-12-19] MEDS: ALBUTEROL 0.083% 2.5 MG/3 ML NEB 20 MG IH (19:51)
--- NOTE | 2024-12-19 20:11 | PC.NURSE ---
food service supervisor notified of plans for admission
[2024-12-19 20:26] LABS: Adenovirus,PCR Not Detected (NotDetected); Bordetella Pertussis Not Detected (NotDetected); Chlamydophila Pneumoniae, PCR Not Detected (NotDetected); Coronavirus 19, PCR Not Detected (NotDetected); Coronavirus 229E Not Detected (NotDetected); Coronavirus NL63 Not Detected (NotDetected); Coronavirus OC43 Not Detected (NotDetected); Coronovirus HKU1,PCR Not Detected (NotDetected); Human Metapneumovirus Not Detected (NotDetected); Influenza A, PCR Not Detected (NotDetected); Influenza AH1, 2009 Not Detected (NotDetected); Influenza AH1, PCR Not Detected (NotDetected); Influenza AH3,PCR Not Detected (NotDetected); Influenza B, PCR Not Detected (NotDetected); Mycoplasma Pneumoniae, PCR Not Detected (NotDetected); Parainfluenza 1, PCR Not Detected (NotDetected); Parainfluenza 2, PCR Not Detected (NotDetected); Parainfluenza 3, PCR Not Detected (NotDetected); Parainfluenza 4, PCR Not Detected (NotDetected); Respiratory Syncytial Virus Not Detected (NotDetected); Rhinovirus/Enterovirus Not Detected (NotDetected)
--- NOTE | 2024-12-19 20:26 | P.HP_ITS ---
<Statement entered by Noé Potter MD - 12/24/24 19:49> Personally evaluated patient and agree with plan of care as outlined by the [employer] STRATEGIST. History of Present Illness *Admission Date: 12/19/24 *Reason for visit:: Shortness of breath *History of present illness: This is a 39-year-old female who has a past medical history significant for hypertension, anxiety, obesity, and bipolar who presents with a chief complaint of productive cough and shortness of breath. Due to patient's symptoms, she presented to the emergency room for evaluation. While in the emergency room, chest x-ray revealed findings which were suspicious for pulmonary edema/congestive heart failure and patient serum sodium was 125. However, patient is room air saturations were 85% and she was being supported by 6 L of oxygen by nasal cannula. Due to these findings, patient is being admitted for further management. During my evaluation of the patient, she expressed she has been experiencing shortness of breath that is been worsening over the past 2 weeks. She reports having a productive cough and some wheezing. Moreover, patient states she has been experiencing dyspnea with exertion and difficulty laying flat for greater than 1 year. She also has had intermittent bilateral lower extremity edema for over 5 years. Patient admits to being a half a day smoker and has no prior health history or family history of heart disease. She is currently denying any chest pain, dyspnea, nausea, vomiting, fever, chills, rigors, or diarrhea. She does endorse having some lightheadedness. Additional pertinent vitals obtained include neutrophils 81.9%, sodium of 125, bicarb of 19, blood glucose 125, and BNP of 148. [facility] Disclaimer: The information contained in this section may have been updated after the patient was seen, as this information can be updated by other users. Medical History Hx of drug overdose Anxiety Hypertension Surgical History H/O LEEP Family History Other Unknown family medical history Social History Smoking Status: Current every day smoker alcohol intake: current current occupational status: disabled and other Travel in the last 8 weeks: None Other Medical History Have you received the Flu Vaccine for this season: Yes Have you received the Pneumonia Vaccine: No Review of Systems Review of Systems Review of systems:: pertinent systems reviewed and negative unless documented below Constitutional Constitutional: Reports system reviewed and no additional complaints, except as documented Eyes Eyes: Reports system reviewed and no additional complaints, except as documented ENT Ears, Nose, Mouth, and Throat: Reports system reviewed and no additional complaints, except as documented *Cardiovascular Cardiovascular: Reports dyspnea, Reports dyspnea on exertion and Reports leg edema *Respiratory Respiratory: Reports cough, Reports dyspnea and Reports dyspnea on exertion *Gastrointestinal Gastrointestinal: Reports system reviewed and no additional complaints, except as documented *Genitourinary Genitourinary: Reports system reviewed and no additional complaints, except as documented *Musculoskeletal Musculoskeletal: Reports system reviewed and no additional complaints, except as documented Integumentary/Breasts Skin/Breast: Reports system reviewed and no additional complaints, except as documented *Neurologic Comments: Lightheadedness Psychiatric Psychiatric: Reports system reviewed and no additional complaints, except as documented Endocrine Endocrine: Reports system reviewed and no additional complaints, except as documented Hematologic/Lymphatic Hematologic/Lymphatic: Reports system reviewed and no additional complaints, except as documented Allergic/Immunologic Allergic/Immunologic: Reports system reviewed and no additional complaints, except as documented Meds Home Medications and Allergies Home Medications ?Medication ?Instructions ?Recorded ?Confirmed ?Type aripiprazole 10 mg tablet (Abilify) 10 mg PO DAILY 02/25/24 05/18/24 History lisinopril 10 mg tablet 10 mg PO DAILY 02/25/24 05/18/24 History melatonin 10 mg tablet 10 mg PO DAILY 02/25/24 05/18/24 History ondansetron 4 mg disintegrating 4 mg PO Q8H PRN Nausea #12 tabs 05/01/24 05/18/24 Rx tablet divalproex 250 mg tablet,extended 250 mg PO BID 05/18/24 05/18/24 History release 24 hr fluoxetine 10 mg capsule 10 mg PO DAILY 05/18/24 05/18/24 History haloperidol 5 mg tablet 5 mg PO DAILY 05/18/24 05/18/24 History loratadine 10 mg tablet (Allergy 10 mg PO DAILY 05/18/24 05/18/24 History Relief (loratadine)) meloxicam 7.5 mg tablet 7.5 mg PO BID 05/18/24 05/18/24 History olanzapine 5 mg tablet 5 mg PO TID 05/18/24 05/18/24 History paliperidone palmitate 156 mg/mL 156 mg IM MONTHLY 05/18/24 05/18/24 History intramuscular syringe (Invega Karl) pantoprazole 40 mg tablet,delayed 40 mg PO DAILY 05/18/24 05/18/24 History release vsrwlgiameujdgm-vrbslcrwekivejm-BA 5 ml PO Q4H PRN sinus symptoms 10/25/24 Rx 2 mg-30 mg-10 mg/5 mL oral syrup #118 mL (Bromfed DM) lidocaine 5 % topical patch 1 patch topical DAILY #30 ea 10/25/24 Rx acetaminophen 500 mg tablet 500 mg PO Q6H PRN pain #30 tabs 11/28/24 Rx ibuprofen 400 mg tablet 400 mg PO Q8H PRN pain #20 tabs 11/28/24 Rx New Prescriptions to Start Prescriptions: Allergies Allergy/AdvReac Type Severity Reaction Status Date / Time No Known Allergies Allergy Verified 06/09/24 18:29 Exam Data for Last 24 hours Vital signs and Labs for Last 24 Hours: Temp Pulse Resp BP Pulse Ox O2 Del Method O2 Flow Rate 99.4 F 87 19 115/75 91 L Nasal Cannula 6 12/19/24 17:37 12/19/24 18:00 12/19/24 17:37 12/19/24 18:00 12/19/24 18:00 12/19/24 17:37 12/19/24 17:37 Laboratory Results - last 24 hr 12/19/24 17:27: SARS-CoV-2 (PCR) Not detected, Influenza A Untype (PCR) Not detected, Influenza Type B (PCR) Not detected 12/19/24 17:54: WBC 9.0, RBC 4.53, Hgb 12.4, Hct 35.6 L, MCV 78.6 L, MCH 27.4, MCHC 34.8, RDW 12.9, Plt Count 256, MPV 9.1, Neut % (Auto) 81.9 H, Lymph % (Auto) 9.2 L, [place] % (Auto) 7.5, Eos % (Auto) 1.1, Baso % (Auto) 0.1, Neut # (Auto) 7.4, Lymph # (Auto) 0.8, [place] # (Auto) 0.7, Eos # (Auto) 0.1, Baso # (Auto) 0.0, D-Dimer 0.28, Sodium 125 L, Potassium 4.4, Chloride 98, Carbon Dioxide 19 L, Anion Gap 12.4, BUN 10, Creatinine 0.70, Estimated Creat Clear 111, Estimated GFR 93, Est GFR ( Amer) 112, Glucose 125 H, Lactate 0.7, Calcium 8.9, Total Bilirubin 0.5, AST 25, ALT 21, Alkaline Phosphatase 92, Troponin I < 0.01, NT-Pro-B Natriuret Pep 148 H, Total Protein 7.2, Albumin 4.3, Globulin 2.9, Albumin/Globulin Ratio 1.5, Serum HCG, Qual Negative 12/19/24 17:59: VBG pH 7.46 H, VBG pCO2 28.3 L, VBG pO2 64.8 H, VBG HCO3 19.5 L, VBG Total CO2 20.4 L, VBG O2 Saturation 93.6 H, VBG Base Excess -4.3 L, VBG Lactic Acid 0.7 I & O for Last 24 hours: Intake & Output 12/17/24 12/17/24 12/18/24 12/19/24 00:59 23:59 23:59 23:59 Weight 65.771 kg Constitutional Constitutional: mild distress and obese *Routine HEENT Exam Head: Present normocephalic and atraumatic Eye: Present EOMI, PERRL and normal accommodation ENT: Present mucous membranes moist *Routine Neck Exam Neck: Present supple and full ROM *Routine Respiratory Exam Respiratory: Present decreased breath sounds, respiratory distress, wheezes, crackles, distant breath sounds, diminished air movement and symmetric chest movement *Routine Cardiovascular Exam Cardiovascular: Present RRR, Normal S1 and Normal S2 *Routine Abdominal Exam Abdominal: Present soft and normoactive bowel sounds *Routine Rectal Exam Rectal:: deferred *Routine Genitalia Exam Genitalia:: deferred *Routine Extremities Exam Extremities: Present edema, full ROM, pulses intact and normal capillary refill Routine Back/Spine/Pelvis Exam Back/Spine: Present full ROM *Routine Skin Exam Skin: Present intact, dry and warm *Routine Neurological Exam Neurological: Present alert, oriented X3, CN II-XII intact and moving all extremities Routine Psychiatric Exam Psychiatric: Present normal affect, normal thought process, cooperative, good insight and good judgment H&P: Result Impressions This is a 39-year-old female who presents with findings consistent with new onset of heart failure. Patient is fairly young and has no significant history consistent with heart disease. She is a half a day pack smoker but denies any family history of heart disease. Assessment and Plan *Assessment and plan (1) Acute hypoxemic respiratory failure: Status: Acute Category: Medical Code(s): J96.01 - Acute respiratory failure with hypoxia (2) Pulmonary edema: Status: Acute Qualifiers: Chronicity: acute Qualified Code(s): J81.0 - Acute pulmonary edema Category: Medical Code(s): J81.1 - Chronic pulmonary edema (3) Hyponatremia: Status: Acute Category: Medical Code(s): E87.1 - Hypo-osmolality and hyponatremia (4) Hypervolemia: Status: Acute Qualifiers: Hypervolemia type: unspecified Qualified Code(s): E87.70 - Fluid overload, unspecified Category: Medical Code(s): E87.70 - Fluid overload, unspecified (5) Metabolic acidosis: Status: Acute Category: Medical Code(s): E87.20 - Acidosis, unspecified Plan Assessment: Acute hypoxic respiratory failure -Patient's respiratory distress is most likely in the setting of pulmonary edema -Will change 6 L of oxygen to high flow nasal cannula and RT to titrate to maintain oxygen saturation greater 94% -Patient's systolic blood pressure is in the 100s. Because of this fact may not be able to diurese patient -Will consider BiPAP to help manage fluid in the lungs with settings of 10/5 and maintain oxygen saturation greater 94% Pulmonary edema/hypervolemia -Will obtain 2D echo -40 mg Lasix IV twice daily hold for systolic blood pressure less than 120 -Strict intake and output -Daily weight -Will diurese patient when she is euvolemic will discharge patient home Hyponatremia -Most likely in setting of heart failure -Will restrict fluid to 1500 mL daily -Will hold off on supplemental sodium chloride for now -Sodium should improve as patient becomes more euvolemic -Obtain random urine sodium Metabolic acidosis -Will monitor bicarb daily -Will hold off on sodium bicarbonate supplementation for now Plan: Admit patient to the stepdown unit SCDs to bilateral lower extremity Saline lock Vital signs every 2 hours Cardiac diet BMP/CBC daily Obtain random urine sodium DuoNebs every 6 hours Not totally convinced patient has pneumonia Will monitor white blood cell count Will consider antibiotics Will obtain blood cultures x 2 and procalcitonin 4 mg Zofran IV push. Hours. Nausea vomit Full code I will discuss this case with attending physician Dr. Potter and a look forward to more input
--- NOTE | 2024-12-19 20:53 | PC.NURSE ---
patient arrived to ICU unit via wheelchair @20:37
[2024-12-19] MEDS: HYDROCODONE/APAP 5/325 MG TABLET 1 TAB PO (22:00)
[2024-12-19] MEDS: FUROSEMIDE 40MG/4ML VIAL 40 MG IV (22:00)
[2024-12-19] MEDS: hydrOXYzine pamoate 25MG CAPSULE 50 MG PO (22:00)
[2024-12-19] MEDS: NICOTINE 21MG/24HR PATCH 21 MG TD (22:00)
[2024-12-19] MEDS: IPRATROPIUM/ALBUTEROL 3 ML NEB IH (23:34)
[2024-12-20] VITALS (32 sets, daily range): BP systolic 102–132; BP diastolic 60–91; PULSE 53–99; RESP 13–23; TEMP 36.4–36.8; O2SAT 89–99; BMI 31.5
[2024-12-20] MEDS: IPRATROPIUM/ALBUTEROL 3 ML NEB IH ×3 (06:36→18:19)
--- NOTE | 2024-12-20 08:00 | CA_ITS ---
APPROVED REPORT EXAM: Comprehensive 2D, Doppler, and color-flow Echocardiogram Military Administrative Technician: Jennie Larry CRT Ht: 5 ft 6 in Wt: 196lbs BSA: 1.98 BP: 115/75 mmHg Indications: Shortness of Breath, Hypertension/HDD, Resp failure, pulmonary edema, bipolar, smoker 2D Dimensions LA Volume 30.60 mL LA Volume Index 15.10 mL/m2 (M/F) 16-34 M-Mode Dimensions RVDd 2.34 cm (0.9-2.6) LA Diam 3.75 cm (1.9-4.0) LVDd 4.59 cm (3.5-5.7) LVDs 2.78 cm (3.5-5.7) IVSd 1.13 cm (0.6-1.1) PWd 0.81 cm (0.6-1.1) EF (Teich) 70.00% FS 39.40% EDV (Teich) 96.80 mL TAPSE 2.91 (<1.7) ESV (Teich) 29.00 mL LV Diastology E Decel Time 157 (160-240 msec) E/A Ratio 1.35 MED A' 9.20 cm/s LAT A' 10.70 cm/s Aortic Valve AO Peak GR. 6.70 mmHg Mitral Valve MV A Velocity 74.0 (40-130 cm/s) E/A Ratio 1.35 Pulmonary Valve PV Peak Velocity 109.0 (50-150 cm/s) Tricuspid Valve TR P. Velocity 289.00 cm/s RAP Estimate 10.00 mmHg RVSP 43.30 mmHg Left Ventricle The left ventricle is normal size. The left ventricular systolic function is normal. The left ventricular ejection fraction is within the normal range. There is increased LV wall thickness. There is normal LV segmental wall motion. The left ventricular diastolic function is normal. LVEF is 60%. Right Ventricle The right ventricle is mildly dilated. The right ventricular systolic function is normal. Atria Left atrium is mildly dilated. The right atrium is mildly dilated. There is no Doppler evidence of interatrial shunt. Aortic Valve The aortic valve opens well. There is no aortic valvular stenosis. No aortic regurgitation is present. Mitral Valve The mitral valve is normal in structure. No evidence of mitral valve stenosis. Mitral regurgitation. Tricuspid Valve Tricuspid valve is grossly normal in structure and function. Mild tricuspid regurgitation. RVSP is 25-30 mmHg. Pulmonic Valve The pulmonary valve is normal in structure. Trace pulmonic regurgitation. Great Vessels The aortic root is normal in size. IVC is normal in size and collapses >50% with inspiration. Pericardium There is no pericardial effusion. Other Information Study Quality: Fair Conclusion Normal biventricular systolic function. Mild RV dilation. Mild biatrial dilation. Mild MR, mild TR. Electronically signed by : Margaret Silva MD 12/20/2024 12:27:23
--- NOTE | 2024-12-20 09:01 | CT_ITS ---
FINAL REPORT TECHNIQUE: Axial images were obtained through the chest without contrast. Reconstructed images were obtained and reviewed. This study was performed with techniques to keep radiation doses as low as reasonably achievable, (ALARA). Individualized dose reduction techniques using automated exposure control or adjustment of mA and/or kV according to the patient's size were employed. CLINICAL HISTORY: hypoxia, left sided chest pain FINDINGS: There is dense linear opacity in the left upper lobe and both lower lobes consistent with scar versus atelectasis. The heart size is normal. There is no pericardial or pleural effusion. Limited images of the upper abdomen are unremarkable. No suspicious infiltrate or nodule identified. IMPRESSION: Scar or atelectasis in the left upper and both lower lobes. Reviewed, Interpreted and Dictated by Terrence Egan MD Transcribed by Maya King Authenticated and [facility]
[2024-12-20] MEDS: KETOROLAC 30MG/ML VIAL 30 MG IV ×2 (09:33→19:42)
[2024-12-20] MEDS: ENOXAPARIN 40MG/0.4ML SYRINGE 40 MG SUBCUT (09:34)
[2024-12-20] MEDS: FUROSEMIDE 40MG/4ML VIAL 40 MG IV ×2 (09:34→15:32)
[2024-12-20] MEDS: SODIUM CHLORIDE 3% 15ML NEB 3 ML IH (10:28)
[2024-12-20] MEDS: HYDROCODONE/APAP 5/325 MG TABLET 1 TAB PO (10:49)
--- NOTE | 2024-12-20 12:04 | PC.NURSE ---
Room air sat at rest = 88%.
--- NOTE | 2024-12-20 12:07 | P.CONCA_ITS ---
History of Present Illness History of Present Illness Consult date: 12/20/24 Requesting physician: Noé Potter Consult reason: shortness of breath Chief complaint: soa History of present illness: This is a 39-year-old white female with past medical history significant for hypertension, anxiety, 1/2 ppd smoker, obesity, bipolar and schizophrenia who presented to emergency department with shortness of breath and cough x 7 days. Patient resides at [facility]. She denies chest pain, fever, nausea or vomiting. Patient does endorse lower extremity edema. Upon arrival to emergency department patient was noted to be hypoxic with a room air oxygen saturation of 86% with rhonchi noted throughout lung bases. EKG showed sinus rhythm at a rate of 94. Labs as follow: WBC 9, hemoglobin 12.4, D-dimer negative, sodium 125, potassium 4.4, creatinine 0.7, lactic acid normal, troponin normal, BNP 148. Respiratory panel negative. Chest x-ray concerning for pulmonary edema. Patient was started on IV Lasix and admitted for further evaluation. Chest CT and echocardiogram are pending. [facility] Disclaimer: The information contained in this section may have been updated after the patient was seen, as this information can be updated by other users. Medical History Hx of drug overdose Anxiety Hypertension Surgical History H/O LEEP Family History Other Unknown family medical history Social History (Updated 12/19/24 @ 22:32 by Lynne Chowdary RN) Smoking Status: Current every day smoker years smoked: 20 alcohol intake: current substance use type: former substance user current occupational status: disabled and other Travel in the last 8 weeks: None service: No long-term: No ([facility], from [facility]) physical activity: walking Contact w/someone who lives/traveled outside [place] past 30 days?: No Exposure to someone with infectious disease in past 14 days?: No Do you have a fever (greater than 100.4 F or 38 C)?: No Have you tested positive for COVID-19: No Exposed to someone with COVID-19 in past 14 days?: No Do you have a sore throat?: No Do you have a cough?: Yes Do you have any weakness?: No Are you experiencing any nausea/vomitting?: No Do you have any diarrhea?: No Are you experiencing any unusual bleeding?: No Do you have any muscle aches/pain?: No Do you have any abdominal pain?: No Are you experiencing loss of taste or smell?: No Review of Systems Review of Systems Review of systems:: pertinent systems reviewed and negative unless documented below *Cardiovascular Cardiovascular: Denies chest pain and Reports dyspnea *Respiratory Respiratory: Reports dyspnea *Musculoskeletal Comments: Patient reports left-sided chest wall pain from coughing Exam Data for Last 24 hours Vital signs and Labs for Last 24 Hours: Temp Pulse Resp BP Pulse Ox O2 Del Method O2 Flow Rate 98.1 F 99 H 21 130/90 94 L Nasal Cannula 3 12/20/24 10:00 12/20/24 11:09 12/20/24 11:00 12/20/24 11:00 12/20/24 11:09 12/20/24 11:09 12/20/24 11:09 FiO2 60 12/20/24 08:00 Laboratory Results - last 24 hr 12/19/24 17:27: SARS-CoV-2 (PCR) Not detected, Influenza A Untype (PCR) Not detected, Influenza Type B (PCR) Not detected 12/19/24 17:54: WBC 9.0, RBC 4.53, Hgb 12.4, Hct 35.6 L, MCV 78.6 L, MCH 27.4, MCHC 34.8, RDW 12.9, Plt Count 256, MPV 9.1, Neut % (Auto) 81.9 H, Lymph % (Auto) 9.2 L, [place] % (Auto) 7.5, Eos % (Auto) 1.1, Baso % (Auto) 0.1, Neut # (Auto) 7.4, Lymph # (Auto) 0.8, [place] # (Auto) 0.7, Eos # (Auto) 0.1, Baso # (Auto) 0.0, D-Dimer 0.28, Sodium 125 L, Potassium 4.4, Chloride 98, Carbon Dioxide 19 L, Anion Gap 12.4, BUN 10, Creatinine 0.70, Estimated Creat Clear 111, Estimated GFR 93, Est GFR ( Amer) 112, Glucose 125 H, Lactate 0.7, Calcium 8.9, Total Bilirubin 0.5, AST 25, ALT 21, Alkaline Phosphatase 92, Troponin I < 0.01, NT-Pro-B Natriuret Pep 148 H, Total Protein 7.2, Albumin 4.3, Globulin 2.9, Albumin/Globulin Ratio 1.5, Serum HCG, Qual Negative 12/19/24 17:59: VBG pH 7.46 H, VBG pCO2 28.3 L, VBG pO2 64.8 H, VBG HCO3 19.5 L, VBG Total CO2 20.4 L, VBG O2 Saturation 93.6 H, VBG Base Excess -4.3 L, VBG Lactic Acid 0.7 12/19/24 20:18: Chlamy pneumoniae PCR Not detected, Adenovirus (PCR) Not detected, B. pertussis DNA (PCR) Not detected, Coronavirus OC43 (PCR) Not detected, Coronavirus HKU1 (PCR) Not detected, Coronavirus 229E (PCR) Not detected, SARS-CoV-2 (PCR) Not detected, Coronavirus NL63 (PCR) Not detected, Human Metapneumovir PCR Not detected, Influenza A (H1) PCR Not detected, Influ A (H1N1/09) PCR Not detected, Influenza A (H3) PCR Not detected, Influenza Type A (PCR) Not detected, Influenza Type B (PCR) Not detected, M. pneumoniae (PCR) Not detected, Parainfluenza 1 (PCR) Not detected, Parainfluenza 2 (PCR) Not detect ed, Parainfluenza 3 (PCR) Not detected, Parainfluenza 4 (PCR) Not detected, RSV (PCR) Not detected, Entero/Rhino (PCR) Not detected I & O for Last 24 hours: Intake & Output 12/17/24 12/18/24 12/19/24 12/20/24 23:59 23:59 23:59 23:59 Intake Total 240 / 240 Output Total 0 / 750 1700 / 1700 Balance 0 / -750 -1460 / -1460 Weight 193 lb 14.4 oz 196 lb 3.382 oz Constitutional Constitutional: no acute distress *Routine Respiratory Exam Respiratory: Present rhonchi and symmetric chest movement *Routine Cardiovascular Exam Cardiovascular: Present RRR, Normal S1 and Normal S2 *Routine Abdominal Exam Abdominal: Present soft and normoactive bowel sounds; Absent tenderness *Routine Extremities Exam Extremities: Present edema, full ROM and normal capillary refill *Routine Skin Exam Skin: Present intact, dry and warm Detailed Neck Exam: Thyroids Thyroid: Absent bruit Meds Home Medications and Allergies Home Medications ?Medication ?Instructions ?Recorded ?Confirmed ?Type aripiprazole 10 mg tablet (Abilify) 10 mg PO DAILY 02/25/24 05/18/24 History lisinopril 10 mg tablet 10 mg PO DAILY 02/25/24 05/18/24 History melatonin 10 mg tablet 10 mg PO DAILY 02/25/24 05/18/24 History ondansetron 4 mg disintegrating 4 mg PO Q8H PRN Nausea #12 tabs 05/01/24 05/18/24 Rx tablet divalproex 250 mg tablet,extended 250 mg PO BID 05/18/24 05/18/24 History release 24 hr fluoxetine 10 mg capsule 10 mg PO DAILY 05/18/24 05/18/24 History haloperidol 5 mg tablet 5 mg PO DAILY 05/18/24 05/18/24 History loratadine 10 mg tablet (Allergy 10 mg PO DAILY 05/18/24 05/18/24 History Relief (loratadine)) meloxicam 7.5 mg tablet 7.5 mg PO BID 05/18/24 05/18/24 History olanzapine 5 mg tablet 5 mg PO TID 05/18/24 05/18/24 History paliperidone palmitate 156 mg/mL 156 mg IM MONTHLY 05/18/24 05/18/24 History intramuscular syringe (Invega Sustenna) pantoprazole 40 mg tablet,delayed 40 mg PO DAILY 05/18/24 05/18/24 History release fwebtmoczfrkxzo-aazhifsxumfxtfw-IP 5 ml PO Q4H PRN sinus symptoms 10/25/24 Rx 2 mg-30 mg-10 mg/5 mL oral syrup #118 mL (Bromfed DM) lidocaine 5 % topical patch 1 patch topical DAILY #30 ea 10/25/24 Rx acetaminophen 500 mg tablet 500 mg PO Q6H PRN pain #30 tabs 11/28/24 Rx ibuprofen 400 mg tablet 400 mg PO Q8H PRN pain #20 tabs 11/28/24 Rx New Prescriptions to Start Prescriptions: Allergies Allergy/AdvReac Type Severity Reaction Status Date / Time No Known Allergies Allergy Verified 06/09/24 18:29 Assessment and Plan *Assessment and plan (1) Acute hyponatremia: Status: Acute Category: Medical Code(s): E87.1 - Hypo-osmolality and hyponatremia (2) Hyponatremia: Status: Acute Category: Medical Code(s): E87.1 - Hypo-osmolality and hyponatremia (3) Pulmonary edema: Status: Acute Qualifiers: Chronicity: acute Qualified Code(s): J81.0 - Acute pulmonary edema Category: Medical Code(s): J81.1 - Chronic pulmonary edema (4) Acute hypoxemic respiratory failure: Status: Acute Category: Medical Code(s): J96.01 - Acute respiratory failure with hypoxia Plan Acute hypoxic respiratory failure Pulmonary edema Hyponatremia Chest x-ray suspicious for pulmonary edema/CHF BNP 148 Sodium 125 Troponin and D-dimer negative Respiratory panel negative Echocardiogram normal biventricular systolic function, mild RV dilation, mild biatrial dilation, mild MR and TR. CT chest scar or atelectasis in the left upper and both lower lobes. No pericardial or pleural effusions noted. Continue Lasix 40 mg IV twice daily Offered patient right heart cath to further evaluate volume status, patient reports she is hesitant due to fear at this time. Will continue to diurese patient with Lasix 40 mg IV twice daily since patient is responding and well. Will reassess in the morning. CV summary 12/20/2024: Continue to diurese patient with Lasix 40 mg IV twice daily
--- NOTE | 2024-12-20 13:55 | HMH.PTEV ---
Physical Therapy Evaluation Rehab PT IP Evaluation Start: 12/20/24 11:13 Freq: ONCE Status: Active Protocol: Document 12/20/24 13:49 MELL (Rec: 12/20/24 13:55 PHOALBERTO [id number]) Subjective/History History History 39-year-old female who has a past medical history significant for hypertension, anxiety, obesity, and bipolar who presents with a chief complaint of productive cough and shortness of breath. Due to patient's symptoms, she presented to the emergency room for evaluation. While in the emergency room, chest x- ray revealed findings which were suspicious for pulmonary edema/congestive heart failure and patient serum sodium was 125. However, patient is room air saturations were 85% and she was being supported by 6 L of oxygen by nasal cannula. Due to these findings, patient is being admitted for further management. She reports she lives at a personal nursing home, is generally independent with all ADLs and ambulation without AD, but she does have a walker if she needs it. Subjective Subjective Pt currently has no c/o, she readily agrees to mobility assessment. [facility] How much help from another person do you currently need... Turning from your back to your side None while in a flat bed without using bedrails? Moving from lying on back to sitting on None the side of a flat bed without using bedrails? Moving to and from a bed to a chair ( None including a wheelchair)? Standing up from a chair using your arms None ? (e.g., wheelchair, bedside chair) Walking in hospital room? None Climbing 3-5 steps with a railing? None Mobility Score 24 Mobility Level [facility] Mobility Calculator Mobility 8 Walk 250 feet or more Rehab PT IP Eval Objective Appearance Patient Behavior Appropriate Patient Orientation Person,Place,Time Difficulty following instructions none Speech Pattern Clear Ambulation Patient Able to Ambulate Yes Ambulation Observation IP General Gait Pattern Observation Shuffling Step Ambulation Distance (feet) 10 Ambulation Assistive Device None Ambulation Ability Supervision/Stand by Balance Ability to Arise Able, uses arms to help Sitting Balance Steady, safe Standing Balance Steady, wide stance Dynamic Sitting Balance Ability Good Dynamic Standing Balance Ability Good Transfers Bed Transfer Ability Supervision/Stand by Chair Transfer Ability Supervision/Stand by Sit to Stand Bed Transfer Ability Supervision/Stand by Sit to Stand Chair Transfer Ability Supervision/Stand by Rehab PT IP prob,goals,plan Problems Date of Evaluation: 12/20/24 Discharge Plan PT Discharge Plan Pt currently appears appropriate to return to personal nursing home once medically stable for d/c. No current needs for inpatient acute therapy services. Eval Complexity Eval Charge Codes 30894 - High Complexity PHYSICIAN CERTIFICATION: I certify the specified therapy services for Mariana Richards are required, authorized, and reviewed every 30 days.
[2024-12-20] MEDS: MORPHINE 2MG/ML SYRINGE 2 MG IV (13:57)
--- NOTE | 2024-12-20 15:15 | PC.NURSE ---
Pt. arrived to the floor.
[2024-12-20] MEDS: ACETAMINOPHEN 325MG TAB 650 MG PO ×2 (15:32→19:42)
[2024-12-20] MEDS: BUPRENORPHINE/NALOXONE 8MG/2MG ODT 2 EACH SL (15:33)
--- NOTE | 2024-12-20 15:46 | P.CONPHA_ITS ---
Pharmacy Intervention Comments: MEDICATION RECONCILIATION COMPLETED ON PATIENT USING MAR FROM [facility]. -ULI CLARK, DONATOD
--- NOTE | 2024-12-20 15:46 | HMH.PHAINT1 ---
Pharmacy Intervention Comments: MEDICATION RECONCILIATION COMPLETED ON PATIENT USING MAR FROM [facility]. -ULI CLARK, DONATOD
--- NOTE | 2024-12-20 22:38 | P.PN_ITS ---
Subjective *Date: 01/11/25 *Time: 10:21 Interval history: Patient is doing better today, weaned off Vapotherm back to room air. Will continue diuresis, cardiology consulted but patient declined right heart catheterization. Exam Data for Last 24 hours Vital signs and Labs for Last 24 Hours: Temp Pulse Resp BP Pulse Ox O2 Del Method O2 Flow Rate 97.6 F 69 17 117/81 96 Room Air 2 12/20/24 15:35 12/20/24 18:19 12/20/24 15:35 12/20/24 15:35 12/20/24 18:19 12/20/24 18:19 12/20/24 15:35 FiO2 60 12/20/24 08:00 I & O for Last 24 hours: Intake & Output 12/17/24 12/18/24 12/19/24 12/20/24 23:59 23:59 23:59 23:59 Intake Total 960 / 960 Output Total 0 / 750 1999 / 1999 Balance 0 / -750 -1040 / -1040 Weight 87.952 kg 89 kg Microbiology Reports for the Last 24 Hours: Microbiology 12/19/24 18:18 Blood Blood Culture - Preliminary NO GROWTH AFTER 24 HOURS 12/19/24 17:54 Blood Blood Culture - Preliminary NO GROWTH AFTER 24 HOURS Constitutional Constitutional: no acute distress *Routine HEENT Exam Head: Present normocephalic Eye: Present EOMI and PERRL ENT: Present mucous membranes moist *Routine Neck Exam Neck: Present supple; Absent lymphadenopathy *Routine Respiratory Exam Respiratory: Present CTA bilaterally *Routine Cardiovascular Exam Cardiovascular: Present RRR *Routine Abdominal Exam Abdominal: Present soft and normoactive bowel sounds; Absent tenderness *Routine Extremities Exam Extremities: Absent cyanosis, clubbing or edema *Routine Skin Exam Skin: Present warm; Absent rash *Routine Neurological Exam Neurological: Present alert Assessment and Plan *Assessment and plan (1) (HFpEF) heart failure with preserved ejection fraction: Status: Acute Category: Medical Code(s): I50.30 - Unspecified diastolic (congestive) heart failure Plan Mariana Richards is a 39-year-old female escudero of the [facility] with a medical history significant for anxiety/depression, mood disorder, cognitive impairment presented with shortness of breath and was admitted for new onset HFpEF [facility]. #Acute hypoxic respiratory failure #HFpEF exacerbation ? Presented with progressive shortness of breath, found to have diffuse pulmonary edema, elevated BNP initially requiring Vapotherm weaned to room air today. ? ECHO reveals LVEF 60%, increased LV wall thickness, normal biventricular systolic function. No wall motion abnormalities. ? Cardiology consulted, continue Lasix 40 mg twice daily. Patient declined right heart catheterization to evaluate for right heart pressures. ? Has had -1 L output so far. Follow-up renal function, CBC, CMP in the morning. #Hypertension ? Continue home lisinopril. #Former opioid use disorder ? Continue home Suboxone / twice daily.. #Mood disorder #Cognitive impairment ? Continue home oxcarbazepine, olanzapine, Invega. ? Patient is a escudero of the [facility]. #GERD ? Continue home PPI. Full code DVT prophylaxis: Lovenox 40 mg
[2024-12-21] VITALS: BP 119/69; PULSE 65; RESP 16; TEMP 36.1; O2SAT 92
[2024-12-21 00:19] VITALS: PULSE 67; PULSE 68
[2024-12-21] MEDS: IPRATROPIUM/ALBUTEROL 3 ML NEB IH (00:19)
[2024-12-21 04:00] VITALS: BMI 31.5
--- NOTE | 2024-12-21 05:14 | PC.NURSE ---
v/s, ox4, RA, up independently. Pt has been up and walking the unit very frequently. No acute events to report. Plan of care ongoing.
[2024-12-21 07:54] VITALS: BP 101/58; PULSE 72; RESP 16; TEMP 36.4; O2SAT 96
[2024-12-21] MEDS: ACETAMINOPHEN 325MG TAB 650 MG PO (07:57)
[2024-12-21] MEDS: BUPRENORPHINE/NALOXONE 8MG/2MG ODT 1 EACH SL (07:57)
[2024-12-21] MEDS: OXcarbazepine 300MG TABLET 600 MG PO (07:57)
--- NOTE | 2024-12-21 08:16 | PC.NURSE ---
Md. stone to give lasix...bp soft.
--- NOTE | 2024-12-21 09:47 | EXP.CARD.PN ---
Subjective Subjective Date: 12/21/24 Time: 08:00 Principal diagnosis: volume overload Interval history: Patient doing well this morning. Patient is doing well this morning. Maintaining oxygen saturation of 96% on room air. Has diuresed well. Denies soa. Exam Data for Last 24 hours Vital signs and Labs for Last 24 Hours: Temp Pulse Resp BP Pulse Ox O2 Del Method O2 Flow Rate 97.6 F 72 16 101/58 L 96 Room Air 2 12/21/24 07:54 12/21/24 07:54 12/21/24 07:54 12/21/24 07:54 12/21/24 07:54 12/21/24 07:54 12/20/24 15:35 FiO2 60 12/20/24 08:00 I & O for Last 24 hours: Intake & Output 12/18/24 12/19/24 12/20/24 12/21/24 23:59 23:59 23:59 23:59 Intake Total 960 / 1080 120 / 120 Output Total 0 / 750 1999 / 1999 Balance 0 / -750 -1040 / -920 120 / 120 Weight 193 lb 14.4 oz 196 lb 3.382 oz 196 lb 3 oz Microbiology Reports for the Last 24 Hours: Microbiology 12/19/24 18:18 Blood Blood Culture - Preliminary NO GROWTH AFTER 24 HOURS 12/19/24 17:54 Blood Blood Culture - Preliminary NO GROWTH AFTER 24 HOURS Constitutional Constitutional: no acute distress *Routine Respiratory Exam Respiratory: Present CTA bilaterally and symmetric chest movement *Routine Cardiovascular Exam Cardiovascular: Present RRR, Normal S1 and Normal S2 *Routine Abdominal Exam Abdominal: Present soft and normoactive bowel sounds; Absent tenderness *Routine Extremities Exam Extremities: Present full ROM and normal capillary refill; Absent edema *Routine Skin Exam Skin: Present intact, dry and warm Detailed Neck Exam: Thyroids Thyroid: Absent bruit Progress Note: A&P Assessment and plan (1) Acute hyponatremia: Status: Acute (2) Hyponatremia: Status: Acute (3) Pulmonary edema: Status: Acute (4) Acute hypoxemic respiratory failure: Status: Acute Assessment and Plan Assessment and Plan for All Diagnoses:: Acute hypoxic respiratory failure Pulmonary edema Hyponatremia Chest x-ray suspicious for pulmonary edema/CHF BNP 148 Sodium 125 Troponin and D-dimer negative Respiratory panel negative Echocardiogram normal biventricular systolic function, mild RV dilation, mild biatrial dilation, mild MR and TR. CT chest scar or atelectasis in the left upper and both lower lobes. No pericardial or pleural effusions noted. Start Lasix 40 mg p.o. daily CV summary 12/21/2024: Patient has diuresed well and is maintaining oxygen saturation on room air. Start Lasix 40 mg p.o. daily for HFpEF. Consider addition of Jardiance 10 mg p.o. daily at discharge. Cardiac meds for discharge: Lasix 40 mg p.o. daily Lisinopril 10 mg p.o. daily Jardiance 10mg p.o. daily
--- NOTE | 2024-12-21 09:52 | HMH.OTEV ---
OT Inpatient Evaluation Rehab OT IP Evaluation Start: 12/20/24 11:13 Freq: ONCE Status: Active Protocol: Document 12/21/24 09:49 [id number] (Rec: 12/21/24 09:52 [facility] [id number]) Rehab OT IP Assessment Subjective History Pt oriented x 3 on arrival. Pt agreeable to engage in therapy evaluation. Pt admitted on 12/19/24 due to respiratory failure. History and physical: This is a 39-year-old female who has a past medical history significant for hypertension, anxiety, obesity, and bipolar who presents with a chief complaint of productive cough and shortness of breath. Due to patient's symptoms, she presented to the emergency room for evaluation. While in the emergency room, chest x- ray revealed findings which were suspicious for pulmonary edema/congestive heart failure and patient serum sodium was 125. However, patient is room air saturations were 85% and she was being supported by 6 L of oxygen by nasal cannula. Due to these findings, patient is being admitted for further management. During my evaluation of the patient, she expressed she has been experiencing shortness of breath that is been worsening over the past 2 weeks. She reports having a productive cough and some wheezing. Moreover, patient states she has been experiencing dyspnea with exertion and difficulty laying flat for greater than 1 year. She also has had intermittent bilateral lower extremity edema for over 5 years. Patient admits to being a half a day smoker and has no prior health history or family history of heart disease. She is currently denying any chest pain, dyspnea, nausea, vomiting, fever, chills, rigors, or diarrhea. She does endorse having some lightheadedness. Additional pertinent vitals obtained include neutrophils 81.9%, sodium of 125, bicarb of 19, blood glucose 125, and BNP of 148. Subjective I have already been up. Prior to being in the hospital , pt reports she lived at [place]. Pt claims she is normally independent with all ADLs. She does not require any type of AE during functional transfers. No o2. Pt is dependent upon staff to complete IADLs such as cooking. Objective Patient Orientation Person,Place,Birthday Right Upper Extremity Gross ROM WFL Left Upper Extremity Gross ROM WFL Bed Mobility bed mobility-scooting,bed mobility - supine/sit Assist Level Independent Transfer Training Sit/Stand Transfer Assist Level Independent Lower Body Dressing Ability Independent Performing Toilet Hygiene Ability Independent Overall Commode/Toilet Transfer Ability Independent Commode/Toilet Transfer Technique Sit to/from Ambulatory Rehab OT IP prob,goals,plan Problems Date of Evaluation: 12/21/24 Rehab Potential Rehab Potential Innapropriate for Skilled Therapy Discharge Plan OT Discharge Plan Pt appears to be at her baseline with functional transfers and ADL independence . Pt can return to [place] once she is medically stable per physician. Eval Complexity Eval Charge Codes 28342 - Moderate Complexity PHYSICIAN CERTIFICATION: I certify the specified therapy services for Mariana Richards are required, authorized, and reviewed every 30 days.
--- NOTE | 2024-12-21 12:05 | SW/DCPLANNER ---
Addendum entered by Shirlene Chavez 12/21/24 15:50: Called [facility] and arranged transportation back to [facility]. [facility] will call when they arrive. Tracey Hsiehrk Addendum entered by Blanquita Carmichael 12/21/24 15:34: Per Reyna specific documentation is required from MD stating patient is safe to return back to [facility] w/ outpatient labs ordered . Dr Potter is agreeable. Reyna stated that w/ this documentation patient is okay to return today. CM will set up [employer] services. I have also arranged [facility] services for patient to return to [facility] on 12-24 at 10:30AM for outpatient lab draw. Discharge summary will be faxed to Reyna at [phone]. Addendum entered by Blanquita Carmichael 12/21/24 14:44: Per Guardian patient can not sign out AMA but can refuse labs. After Dr Brown and Dr Lara discussed situation plan is to discharge patient back to [facility] w/ outpatient lab orders. [facility] and Guardianship have been updated. Addendum entered by Blanquita Carmicheal 12/21/24 13:13: I have updated Tonya gaurav/ [facility] regarding patient refusing lab draws at this time. Charge nurse (Juanita) will discuss w/ State Guardian regarding refusal/importance of lab draws and possible AMA. Original Note: This patient currently resides at [facility]. PT evaluated patient and stated that patient is safe to return Personal Care level. I have updated Tonya nolasco/ [facility] and she confirmed patient can return today and will not need to be evaluated onsite prior to returning. CM will set up [employer] at time of discharge. Per MD patient will discharge back this afternoon.
--- NOTE | 2024-12-21 14:18 | P.DS_ITS ---
General Admission date:: 12/19/24 HPI HPI HPI: This is a 39-year-old female who has a past medical history significant for hypertension, anxiety, obesity, and bipolar who presents with a chief complaint of productive cough and shortness of breath. Due to patient's symptoms, she presented to the emergency room for evaluation. While in the emergency room, chest x-ray revealed findings which were suspicious for pulmonary edema/congestive heart failure and patient serum sodium was 125. However, patient is room air saturations were 85% and she was being supported by 6 L of oxygen by nasal cannula. Due to these findings, patient is being admitted for further management. During my evaluation of the patient, she expressed she has been experiencing shortness of breath that is been worsening over the past 2 weeks. She reports having a productive cough and some wheezing. Moreover, patient states she has been experiencing dyspnea with exertion and difficulty laying flat for greater than 1 year. She also has had intermittent bilateral lower extremity edema for over 5 years. Patient admits to being a half a day smoker and has no prior health history or family history of heart disease. She is currently denying any chest pain, dyspnea, nausea, vomiting, fever, chills, rigors, or diarrhea. She does endorse having some lightheadedness. Additional pertinent vitals obtained include neutrophils 81.9%, sodium of 125, bicarb of 19, blood glucose 125, and BNP of 148. Hospital Course Hospital Course Hospital Course: Mariana Richards is a 39-year-old female escudero of the [facility] with a medical history significant for anxiety/depression, mood disorder, cognitive impairment presented with shortness of breath and was admitted for new onset HFpEF exacerbation. #Acute hypoxic respiratory failure #HFpEF exacerbation ? Presented with progressive shortness of breath, found to have diffuse pulmona ry edema, elevated BNP initially requiring Vapotherm. ? ECHO reveals LVEF 60%, increased LV wall thickness, normal biventricular systolic function. No wall motion abnormalities. ? Clinically improved with Lasix diuresis. Weaned to room air with appropriate saturations. ? Cardiology consulted, transitioned to oral Lasix 40 mg daily, Jardiance 10 mg. ? After initial lab work in the ED, patient repeatedly refused lab draws during hospital course. I extensively discussed with patient regarding needing lab work in the setting of new diuretics to monitor kidney function, electrolytes. Her peripheral IV was also not drawing blood. Patient states she understood, including renal failure and severe electrolyte abnormalities, but ultimately refused lab work and wanted to leave AMA. I do worry given patient's cognitive impairment that she is unable to fully appreciate the situation and its risks. We reached out to patient's escudero of the [facility], who disagreed with patient's desire to leave AMA. After extensive conversation with the patient, she agreed for follow-up lab work on 12/24/24 at 10:30 AM. Transportation will be provided. I believe this is an appropriate compromise. Patient's initial lab work in the ED showed stable renal function, normal potassium. ? Referred to cardiology for further evaluation and management. #Hypertension ? Continue home lisinopril. #Former opioid use disorder ? Continue home Suboxone 8/2 twice daily.. #Mood disorder ? Continue home oxcarbazepine, olanzapine, Invega. #GERD ? Continue home PPI. Total time spent on discharge: 45 minutes on chart review, counseling, documentation, and direct care with patient. Exam Data for Last 24 hours Vital signs and Labs for Last 24 Hours: Temp Pulse Resp BP Pulse Ox O2 Del Method O2 Flow Rate 97.6 F 72 16 101/58 L 96 Room Air 2 12/21/24 07:54 12/21/24 07:54 12/21/24 07:54 12/21/24 07:54 12/21/24 07:54 12/21/24 09:55 12/20/24 15:35 FiO2 60 12/20/24 08:00 I & O for Last 24 hours: Intake & Output 12/18/24 12/19/24 12/20/24 12/21/24 23:59 23:59 23:59 23:59 Intake Total 960 / 1080 600 / 600 Output Total 0 / 750 1999 / 1999 Balance 0 / -750 -1040 / -920 600 / 600 Weight 87.952 kg 89 kg 88.989 kg Microbiology Reports for the Last 24 Hours: Microbiology 12/19/24 18:18 Blood Blood Culture - Preliminary NO GROWTH AFTER 24 HOURS 12/19/24 17:54 Blood Blood Culture - Preliminary NO GROWTH AFTER 24 HOURS Constitutional Constitutional: no acute distress *Routine HEENT Exam Head: Present normocephalic Eye: Present EOMI and PERRL ENT: Present mucous membranes moist *Routine Neck Exam Neck: Present supple; Absent lymphadenopathy *Routine Respiratory Exam Respiratory: Present CTA bilaterally *Routine Cardiovascular Exam Cardiovascular: Present RRR *Routine Abdominal Exam Abdominal: Present soft and normoactive bowel sounds; Absent tenderness *Routine Extremities Exam Extremities: Absent cyanosis, clubbing or edema *Routine Skin Exam Skin: Present warm; Absent rash *Routine Neurological Exam Neurological: Present alert Results Data Completed and Pending Labs on day of discharge: Preliminary micro results at discharge 12/19/24 18:18 Blood Culture - Preliminary Blood NO GROWTH AFTER 24 HOURS 12/19/24 17:54 Blood Culture - Preliminary Blood NO GROWTH AFTER 24 HOURS DS: Diagnosis Discharge Diagnosis (1) Acute hyponatremia: Status: Acute Code(s): E87.1 - Hypo-osmolality and hyponatremia (2) Hyponatremia: Status: Acute Code(s): E87.1 - Hypo-osmolality and hyponatremia (3) Pulmonary edema: Status: Acute Code(s): J81.1 - Chronic pulmonary edema Qualifiers: Chronicity: acute Qualified Code(s): J81.0 - Acute pulmonary edema (4) Acute hypoxemic respiratory failure: Status: Acute Code(s): J96.01 - Acute respiratory failure with hypoxia Meds Home Medications and Allergies Home Medications ?Medication ?Instructions ?Recorded ?Confirmed ?Type buprenorphine 8 mg-naloxone 2 mg 1 tab sublingual BID 12/20/24 12/20/24 History sublingual tablet docusate sodium 100 mg capsule 200 mg PO HS 12/20/24 12/20/24 History lisinopril 10 mg tablet 10 mg PO DAILY 12/20/24 12/20/24 History loratadine 10 mg tablet (Allergy 10 mg PO DAILY 12/20/24 12/20/24 History Relief (loratadine)) melatonin 10 mg capsule 10 mg PO HS 12/20/24 12/20/24 History meloxicam 7.5 mg tablet 7.5 mg PO BID 12/20/24 12/20/24 History olanzapine 10 mg tablet 10 mg PO HS 12/20/24 12/20/24 History oxcarbazepine 600 mg tablet 600 mg PO BID 12/20/24 12/20/24 History paliperidone palmitate 234 mg/1.5 234 mg IM MONTHLY 12/20/24 12/20/24 History mL [facility]uscular syringe ([facility] pantoprazole 40 mg tablet,delayed 40 mg PO DAILY 12/20/24 12/20/24 History release empagliflozin 10 mg tablet 10 mg PO DAILY 30 days #30 tabs 12/21/24 Rx (Jardiance) furosemide 40 mg tablet (Lasix) 40 mg PO DAILY #30 tabs 12/21/24 Rx New Prescriptions to Start Prescriptions: empagliflozin [Jardiance] Noé Potter furosemide [Lasix] Noé Potter Allergies Allergy/AdvReac Type Severity Reaction Status Date / Time No Known Allergies Allergy Verified 06/09/24 18:29 Discharge Plan Disposition Patient Disposition: Home, Self-Care Condition: Fair Discharge Order Discharge Orders: Discharge Order (Routine); Ordered 12/21/24 Ordered By: Noé Potter Follow up Plan Follow up with: Janette Pereira APRN [Nurse Practitioner] - 12/26/24 10:00 am Prescriptions/Medication Reconciliation: New Jardiance 10 mg Tablet 10 mg PO DAILY 30 Days Qty: 30 0RF furosemide [Lasix] 40 mg tablet 40 mg PO DAILY Qty: 30 0RF Continued olanzapine 10 mg tablet 10 mg PO HS meloxicam 7.5 mg tablet 7.5 mg PO BID pantoprazole 40 mg tablet,delayed release (DR/EC) 40 mg PO DAILY lisinopril 10 mg tablet 10 mg PO DAILY docusate sodium 100 mg capsule 200 mg PO HS oxcarbazepine 600 mg tablet 600 mg PO BID loratadine [Allergy Relief (loratadine)] 10 mg tablet 10 mg PO DAILY buprenorphine-naloxone 8-2 mg tablet, sublingual 1 tab SUBLINGUAL BID Invega Sustenna 234 mg/1.5 mL syringe 234 mg IM MONTHLY melatonin 10 mg Capsule 10 mg PO HS Other Ambulatory Orders: Basic Metabolic Panel (Routine) Timeframe: 1 Week Facility: [facility] - Location: Laboratory Ordered By: Noé Potter Magnesium (Routine) Timeframe: 1 Week Facility: [facility] - Location: Laboratory Ordered By: Noé Potter Problem Reconciliation Problems Reviewed?: Yes Patient Discharge Instructions Patient Instructions: DI for Hyponatremia Print Language: Beninese Providers Primary Care Provider: Lonnie Calzada Admit Provider: Noé Potter Attending Provider: Noé Potter
--- NOTE | 2024-12-21 14:45 | PC.NURSE ---
MD CALLAWAY ORDERED MORNING LABS THE LAST TWO DAYS AND PATIENT HAS REFUSED. NURSING STAFF HAS ATTEMPTED MULTIPLE TIMES TO GET PATIENT TO ALLOW US TO GET HER LABS. PT'S STATE GUARDIAN WAS CONTACTED WHEN PATIENT STATED THAT SHE WANTED TO LEAVE TO GO HOME. STATE GUARDIAN STATES THAT THE PATIENT CANNOT LEAVE AMA. CASE MANAGEMENT HAS BEEN INVOLVED IN CARE DISCUSSION. PATIENT WILL BE DISCHARGED BACK TO [facility] WITH ORDERS FOR OUTPATIENT LABS. GUARDIAN MADE AWARE OF PLANS FOR DC AND OUTPATIENT LABS.
--- NOTE | 2024-12-21 15:10 | PC.NURSE ---
Isamar called and are aware of the patients d/c. Said okay 'she will be her in time for dinner.'
== END 2024-12-21 16:10 | disposition home or self-care (01) ==
LOC: ER 17:31 → ICU 20:26 → 2ND 12-21 14:19 → ICU 12-28 07:01
PROVIDERS: Admitting Provider Student in an Organized Health Care Education/Training Program; Emergency Provider Emergency Medicine; PCP Nurse Practitioner Acute Care; Visit Provider Student in an Organized Health Care Education/Training Program
DX: J96.01 Acute respiratory failure with hypoxia (principal); E87.1 Hypo-osmolality and hyponatremia; I50.30 Unspecified diastolic (congestive) heart failure; F17.210 Nicotine dependence, cigarettes, uncomplicated; R06.02 Shortness of breath; E66.9 Obesity, unspecified; Z68.31 Body mass index [BMI] 31.0-31.9, adult; E87.20 Acidosis, unspecified; F31.9 Bipolar disorder, unspecified; F41.9 Anxiety disorder, unspecified; I11.0 Hypertensive heart disease with heart failure; G31.84 Mild cognitive impairment of uncertain or unknown etiology; K21.9 Gastro-esophageal reflux disease without esophagitis; Z63.32 Other absence of family member; Z63.8 Other specified problems related to primary support group
CPT/HCPCS: 71046; 71250; 80053; 82803; 83605; 83880; 84484; 84703; 85025; 85378; 87040; 87633; 87636; 93005; 93306; 94640; 94760; 94761; 97163; 97166; 99291; G0378; J0131; J0456; J0574; J0696; J1650; J1885; J1940; J2270; J2919; J3475; J7050; J7120; J7613; J7620

== ENCOUNTER 2025-03-19 15:42 | Emergency (ER) | payer MEDICAID, SELFPAY ==
--- NOTE | 2025-03-19 16:00 | PC.NURSE ---
DR LEDBETTER AT BEDSIDE
--- NOTE | 2025-03-19 16:04 | HMH.EDGENADL ---
Discharge Plan Disposition Patient Disposition: Home, Self-Care Condition: Fair Prescriptions Prescriptions: No Action olanzapine 10 mg tablet 10 mg PO HS meloxicam 7.5 mg tablet 7.5 mg PO BID pantoprazole 40 mg tablet,delayed release (DR/EC) 40 mg PO DAILY lisinopril 10 mg tablet 10 mg PO DAILY docusate sodium 100 mg capsule 200 mg PO HS oxcarbazepine 600 mg tablet 600 mg PO BID loratadine [Allergy Relief (loratadine)] 10 mg tablet 10 mg PO DAILY buprenorphine-naloxone 8-2 mg tablet, sublingual 1 tab SUBLINGUAL BID Invega Sustenna 234 mg/1.5 mL syringe 234 mg IM MONTHLY melatonin 10 mg Capsule 10 mg PO HS Jardiance 10 mg Tablet 10 mg PO DAILY 30 Days Qty: 30 0RF furosemide [Lasix] 40 mg tablet 40 mg PO DAILY Qty: 30 0RF Referrals Follow up/Referrals: Kirstie Mims DPM [Staff Physician, Podiatry] - See instructions Activity Restrictions/Add. Instructions Additional Instructions/Restrictions: Call Dr. Mims to schedule appointment with podiatry. Return if any fevers worsening pain or drainage. You may take 1000 mg of Tylenol every 6 hours and ibuprofen 400 mg every 6 hours as needed for pain. Clinical Impressions Clinical Impression: Callus of foot Print Language Print Language: Divehi Discharge ED Provider: Rafael Inman Adult HPI General Stated complaint: FOOT BLISTER Time Seen by Provider: 03/19/25 16:04 History of Present Illness HPI narrative: Patient is a 39-year-old female with history of psychiatric issues. She is presenting today due to concern for right big toe pain. She reports that there has been an area over the medial aspect of her right toe that has been bothering her for some time. More recently, it has turned colors to a darker color. She denies any fevers drainage from the area numbness weakness tingling. She has not tried anything at home for the pain around the area. She denies any overt trauma to the area. She is still able to ambulate without difficulty. Related Data Home Medications ?Medication ?Instructions ?Recorded ?Confirmed buprenorphine 8 mg-naloxone 2 mg 1 tab sublingual BID 12/20/24 12/20/24 sublingual tablet docusate sodium 100 mg capsule 200 mg PO HS 12/20/24 12/20/24 lisinopril 10 mg tablet 10 mg PO DAILY 12/20/24 12/20/24 loratadine 10 mg tablet (Allergy 10 mg PO DAILY 12/20/24 12/20/24 Relief (loratadine)) melatonin 10 mg capsule 10 mg PO HS 12/20/24 12/20/24 meloxicam 7.5 mg tablet 7.5 mg PO BID 12/20/24 12/20/24 olanzapine 10 mg tablet 10 mg PO HS 12/20/24 12/20/24 oxcarbazepine 600 mg tablet 600 mg PO BID 12/20/24 12/20/24 paliperidone palmitate 234 mg/1.5 234 mg IM MONTHLY 12/20/24 12/20/24 mL intramuscular syringe (Invega Sustenna) pantoprazole 40 mg tablet,delayed 40 mg PO DAILY 12/20/24 12/20/24 release Previous Rx's ?Medication ?Instructions ?Recorded empagliflozin 10 mg tablet 10 mg PO DAILY 30 days #30 tabs 12/21/24 (Jardiance) furosemide 40 mg tablet (Lasix) 40 mg PO DAILY #30 tabs 12/21/24 Allergies Allergy/AdvReac Type Severity Reaction Status Date / Time No Known Allergies Allergy Verified 06/09/24 18:29 [facility] Disclaimer: The information contained in this section may have been updated after the patient was seen, as this information can be updated by other users. Medical History Hx of drug overdose Anxiety Hypertension Surgical History H/O LEEP Family History Other Unknown family medical history Social History (Updated 12/19/24 @ 22:32 by Lynne Chowdary RN) Smoking Status: Current every day smoker years smoked: 20 alcohol intake: current substance use type: former substance user current occupational status: disabled and other Travel in the last 8 weeks?: None service: No usp: No ([facility], from [facility]) physical activity: walking Other Medical History Have you received the Flu Vaccine for this season: No Have you received the Pneumonia Vaccine: No ROS Obtained: Yes All systems reviewed & no additional complaints except as documented Physical Exam General General appearance: alert and in no apparent distress Head Head exam: atraumatic and normocephalic Eye Eye exam: Present PERRL and EOMI ENT ENT exam: Present normal oropharynx Neck Neck exam: Present full ROM and trachea midline Chest Chest inspection: Present symmetric chest wall rise Respiratory Respiratory exam: Present normal lung sounds bilaterally; Absent stridor Cardiovascular Cardiovascular exam: Present regular rate and normal rhythm Abdominal Exam Abdominal exam: Present soft; Absent distention or tenderness Extremities Exam Extremities exam: Present full ROM and tenderness (2 x 2 cm area over the medial aspect of the right great toe that is dark red no active bleeding or drainage noted. There is no erythema induration or warmth surrounding. Most consistent with a blood blister and callus) Neurological Exam Neurological exam: Present alert and oriented X3 Psychiatric Psychiatric exam: Present normal mood Skin Skin exam: Present warm and dry Medical Decision Making Medical Records Screening: Per USPSTF and CDC recommendations, given the prevalence of disease in our region, it is our hospital?s policy to screen for HIV and viral Hepatitis for all patients aged 18 and over and those with ongoing risk factors. Karel Inquiry Pt receiving controlled substance: No Orders (Tests/Meds): ED MEDICATIONS Generic Name Dose Route Start Last Admin Trade Name Freq PRN Reason Stop Dose Admin Ketorolac Tromethamine 15 mg 03/19/25 16:04 Ketorolac 30mg/Ml Vial IM 03/19/25 16:05 ONCE ONE Medical Decision Narrative: In summary, this 39-year-old female presents to the emergency department today with toe pain. On initial evaluation patient is hemodynamically stable and in no acute distress. Warm and well-perfused. The area of the medial aspect of the right great toe appears to be a blood blister without surrounding signs of erythema or induration. There is no overt tenderness over bony prominences. I considered chest x-ray, but deferred given Enma benefits and she is ambulatory on it with no complaints. She is requesting a Toradol shot. I will follow her up with a sales designer so that she may have this excised on a outpatient basis. Strict precautions discussed all questions answered patient amenable to plan discharge. On reassessment after Toradol reports improvement in her pain and she is requesting discharge.. Differential diagnosis includes but is not limited to. Based on these concerns, I ordered. Of note, social determinants of health include poor health literacy. At this time it was felt that the patient was safe to be discharged home. The patient was in agreement with this plan. The patient was given strict return precautions prior to being discharged from the emergency department. Critical Care Critical Care Time Critical Care Time: No
[2025-03-19 16:09] VITALS: BP 137/81; PULSE 89; RESP 20; TEMP 36.7; O2SAT 97; BMI 31.1
[2025-03-19] MEDS: KETOROLAC 30MG/ML VIAL 15 MG IM (16:16)
[2025-03-19 16:21] VITALS: BP 133/77; PULSE 81; RESP 18; TEMP 36.8; O2SAT 97
--- NOTE | 2025-03-19 16:23 | PC.NURSE ---
SPOKE WITH STAFF AT [facility], WILL SEND SOMEONE TO FINANCIAL ASSISTANCE SPECIALIST PT NO ANSWER AT [facility]
== END 2025-03-19 16:22 | disposition home or self-care (01) ==
PROVIDERS: Emergency Provider Emergency Medicine
DX: L84 Corns and callosities (principal)
CPT/HCPCS: 96372; 99283; J1885

== ENCOUNTER 2025-08-22 17:50 | Emergency (ER) | payer MEDICAID, SELFPAY ==
[2025-08-22 17:50] VITALS: BP 108/75; PULSE 79; RESP 16; TEMP 36.8; O2SAT 96; BMI 28.3
[2025-08-22 17:55] VITALS: BP 87/68; PULSE 83; O2SAT 96
--- OUTSIDE RECORDS SUMMARY | 2025-08-22 17:56 | XMS_ITS | Patient Health Record ---
Author Organization 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) Active confirmed karri-Other stimulant dependence, uncomplicated Problem Tobacco user (608371663) Nicotine dependence, cigarettes, uncomplicated (F17.210) Active confirmed karri-Nicotine dependence, cigarettes, uncomplicated Problem Schizophrenia (23483373) Schizophrenia, unspecified (F20.9) Active confirmed karri-Schizophre shari, unspecified Problem Chronic pain (27066975) Other chronic pain (G89.29) Active confirmed karri-Other chronic pain Problem Bronchitis (07338053) Bronchitis, not specified as acute or chronic (J40) Active confirmed karri-Bronchitis , not specified as acute or chronic Problem Fibromyalgia (846382696) Fibromyalgia (M79.7) Active confirmed karri-Fibromyalg ia Problem Long-term current use of drug therapy (302187394) Other fci (current) drug therapy (Z79.899) Active confirmed karri-Other fci (current) drug therapy Plan Of Treatment No Information Insurance Providers Payer Name Payer Address Payer Phone Subscriber Number Group Number Insured Name Patient Relationship to Insured Coverage Start Date Coverage End Date [facility] [employer] [facility] [address] [address] [place] [address] [id number] MauriceDominga Self - patient is the insured [facility] [employer] [facility] [address] [address] [place] [phone] [id number] Dominga Richards Self - patient is the insured
--- NOTE | 2025-08-22 18:06 | ED_ITS ---
<Statement entered by Krista Medrano DO - 08/23/25 21:25> I was consulted by the BRIA, and we discussed the complexity of problems being addressed. I approve the treatment and management plan for this patient's care in the emergency department, thus performing a substantial portion of the medical decision making. Krista Medrano DO Discharge Plan Disposition Chief Complaint: PAIN Prescriptions Prescriptions: No Action doxycycline hyclate 100 mg capsule 100 mg PO BID 14 Days Qty: 28 0RF mupirocin 2 % ointment 1 applic topical BID 14 Days Qty: 22 1RF olanzapine 10 mg tablet 10 mg PO HS meloxicam 7.5 mg tablet 7.5 mg PO BID pantoprazole 40 mg tablet,delayed release (DR/EC) 40 mg PO DAILY lisinopril 10 mg tablet 10 mg PO DAILY docusate sodium 100 mg capsule 200 mg PO HS oxcarbazepine 600 mg tablet 600 mg PO BID loratadine [Allergy Relief (loratadine)] 10 mg tablet 10 mg PO DAILY buprenorphine-naloxone 8-2 mg tablet, sublingual 1 tab SUBLINGUAL BID Invega Sustenna 234 mg/1.5 mL syringe 234 mg IM MONTHLY melatonin 10 mg Capsule 10 mg PO HS Jardiance 10 mg Tablet 10 mg PO DAILY 30 Days Qty: 30 0RF furosemide [Lasix] 40 mg tablet 40 mg PO DAILY Qty: 30 0RF Referrals Follow up/Referrals: Provider,Referral, MD [Primary Care Provider, Medical] - See instructions Print Language Print Language: Divehi Discharge ED Provider: Krista Medrano General Adult HPI General Chief complaint: PAIN Stated complaint: leg pain/chest cold Time Seen by Provider: 08/22/25 17:51 Mode of Arrival: EMS Source of Information: Patient and EMS Description of Symptoms (Recalled from ER Triage Doc. by RN): PATIENT PRESENTS TO ED FOR MULTIPLE COMPLAINTS. C/O RIGHT LEG PAIN, CHEST COLD WITH CHEST PAIN. STATES THESE ISSUES HAVE BEEN GOING ON FOR A WHILE. History of Present Illness HPI narrative: 40-year-old female presents to the ED for complaint right leg and ankle pain, she states that she broke her leg 3 to 4 years ago and she has metal in her leg and that it hurts. She has had no additional injury or trauma. She tells me t hat she cannot walk. This was right before she came to the nursing station and tells me that she wants a shot for the pain in her leg. She also asked for a pill for nausea because she has nausea at this time she generalized abdominal pain she has had no vomiting no diarrhea no other symptoms Related Data Home Medications ?Medication ?Instructions ?Recorded ?Confirmed buprenorphine 8 mg-naloxone 2 mg 1 tab sublingual BID 12/20/24 05/06/25 sublingual tablet docusate sodium 100 mg capsule 200 mg PO HS 12/20/24 0 05/06/25 lisinopril 10 mg tablet 10 mg PO DAILY 12/20/2404/10 loratadine 10 mg tablet (Allergy 10 mg PO DAILY 05/06/25 Relief (loratadine)) melatonin 10 mg capsule 10 mg PO HS 12/20/24 5 meloxicam 7.5 mg tablet 7.5 mg PO BID 12/20/2405/06 olanzapine 10 mg tablet 10 mg PO HS 12/20/24 5 oxcarbazepine 600 mg tablet 600 mg PO BID 12/20/24 paliperidone palmitate 234 mg/1.5 234 mg IM MONTHLY 05/06/25 mL intramuscular syringe (Invega Sustenna) pantoprazole 40 mg tablet,delayed 40 mg PO DAILY 12/2005/06/25 release Previous Rx's ?Medication ?Instructions ?Recorded empagliflozin 10 mg tablet 10 mg PO DAILY 30 days #30 tabs 12/21/24 (Jardiance) furosemide 40 mg tablet (Lasix) 40 mg PO DAILY #30 tab s 12/21/24 doxycycline hyclate 100 mg capsule 100 mg PO BID infec tion 14 days 05/02/25 #28 caps mupirocin 2 % topical ointment 1 applic topical BID in fection 14 05/02/25 days #22 grams Allergies Allergy/AdvReac Type Severity Reaction Status Date / Time No Known Allergies Allergy Verified 05/06/25 08:49 [facility] Disclaimer: The information contained in this section may have been updated after the patient was seen, as this information can be updated by other users. Medical History Metabolic acidosis Hypervolemia Pulmonary edema Pneumonia Wheezing Acute hypoxemic respiratory failure Pre-syncope Acute right ankle pain Arm pain Syncope Acute chest wall pain Cough Leg pain Left against medical advice Suicidal ideation Ankle pain Nausea Neuropathy Light-headedness Acute pain of right lower extremity Left against medical advice Acute dehydration Light-headedness Acute pain of right lower extremity Chronic pain Schizophrenia Acute upper respiratory infection Chest pain Syncope Auditory hallucination Schizophrenia Candidal intertrigo Acute anxiety Encounter for medical assessment Hx of drug overdose Anxiety Hypertension Surgical History H/O LEEP Family History Other Unknown family medical history Social History Smoking Status: Current every day smoker years smoked: 20 alcohol intake: current substance use type: former substance user current occupational status: disabled and other Travel in the last 8 weeks?: None service: No longterm: No ([facility], from [facility]) physical activity: walking Other Medical History Have you received the Flu Vaccine for this season: No Have you received the Pneumonia Vaccine: No ROS Obtained: Yes Systems reviewed as appropriate & no additional complaints except as documented Constitutional Constitutional: Reports as per HPI Physical Exam General General appearance: alert and in no apparent distress Head Head exam: normocephalic Eye Eye exam: Present PERRL and EOMI ENT ENT exam: Present normal oropharynx and mucous membranes moist Neck Neck exam: Present full ROM and trachea midline Respiratory Respiratory exam: Present normal lung sounds bilaterally Cardiovascular Cardiovascular exam: Present regular rate, normal rhythm, normal heart sounds, +S1 and +S2 Abdominal Exam Abdominal exam: Present soft and normal bowel sounds Extremities Exam Extremities exam: Present normal inspection and full ROM Neurological Exam Neurological exam: Present alert, oriented X3 and normal gait Skin Skin exam: Present warm and dry Medical Decision Making Medical Records Screening: Per USPSTF and CDC recommendations, given the prevalence of disease in our region, it is our hospital?s policy to screen for HIV and viral Hepatitis for all patients aged 18 and over and those with ongoing risk factors. Karel Inquiry Pt receiving controlled substance: No Karel was queried for this patient: No Vital Signs: 08/22/25 17:50 08/22/25 17:50 Temperature 98.2 F 98.2 F Temperature Source Oral Pulse Rate 79 Pulse Rate [Right] 79 Respiratory Rate 16 16 Blood Pressure 108/75 L Blood Pressure [Right Arm] 108/75 L Blood Pressure Mean [Right Arm] 86 02 Sat by Pulse Oximetry 96 96 Orders (Tests/Meds): ED MEDICATIONS Discontinued Medications Generic Name Dose Route Start Last Admin Trade Name Karol PRN Reason Stop Dose Admin Ketorolac Tromethamine 30 mg 08/22/25 17:57 Ketorolac 30mg/Ml Vial IM 08/22/25 17:58 ONCE ONE Ondansetron HCl 4 mg 08/22/25 17:57 Ondansetron 4mg Odt SL 08/22/25 17:58 ONCE ONE Medical Decision Narrative: Insert review patient is a 40 year old female presenting to the emergency department for evaluation of ankle pain. Patient is hemodynamically stable and nontoxic-appearing upon arrival, afebrile. Differential diagnosis includes ankle pain or sprain. Workup considered with imaging but this is not needed as she has not had any trauma or additional injury to her ankle and she is walking well. Initial inventions include Toradol injection. Patient is eating in her room and very comfortable. She has been walking around the unit and in no pain. Patient will be discharged Critical Care Critical Care Time Critical Care Time: No
[2025-08-22] MEDS: ONDANSETRON 4MG ODT 4 MG SL (18:17)
[2025-08-22] MEDS: KETOROLAC 30MG/ML VIAL 30 MG IM (18:17)
[2025-08-22 18:57] VITALS: BP 108/75; PULSE 86; RESP 18; TEMP 36.8; O2SAT 98
== END 2025-08-22 19:43 | disposition home or self-care (01) ==
PROVIDERS: Emergency Provider Student in an Organized Health Care Education/Training Program
DX: M19.079 Primary osteoarthritis, unspecified ankle and foot (principal); R11.0 Nausea
CPT/HCPCS: 96372; 99284; J1885; Q0162